=== PATIENT | female | born 1960 | race African-American/Black ===

== ENCOUNTER 2020-06-27 14:13 | Outpatient (REF) | payer OTHER, SELFPAY ==
--- NOTE | ~2020-06-27 | MR_ITS ---
EXAMINATION: MR CERVICAL SPINE WITHOUT CONTRAST CLINICAL INFORMATION: Mild cord compression. COMPARISON: CT cervical spine from 09/21/2018. TECHNIQUE: MRI of the cervical spine was obtained using routine sequences without contrast. FINDINGS: Straightening of the normal cervical lordosis. Otherwise, normal anatomic alignment. Advanced degenerative disc disease at C5-C6 and C6-C7. Moderate degenerative disc disease from C2-C5. Associated mixed Modic type discogenic endplate changes including mild Modic type I discogenic edema at C5-C6 and C6-C7. Mild marrow edema within the facets at C4-C5 suggestive of degenerative stress reaction. No additional suspicious marrow edema. The vertebral body heights are largely maintained. There is mild increased T2 signal within the central cord at C3-C4 suggestive of myelomalacia. No additional spinal cord signal abnormalities. Limited evaluation of the soft tissues of the neck without demonstrated abnormalities. The flow voids of the major cervical vessels are maintained. Normal appearance of the cervicomedullary junction and visualized posterior fossa. SPINAL LEVELS: C2-C3: Moderate disc-osteophyte complex. There is moderate right and mild left uncovertebral joint arthropathy. There is mild to moderate bilateral facet joint arthropathy. There is mild right and no left neural foraminal stenosis. There is no spinal canal stenosis. C3-C4: Prominent disc-osteophyte complex with superimposed central disc herniation. There is severe right and moderate left uncovertebral joint arthropathy. There is moderate bilateral facet joint arthropathy. There is severe right and moderate left neural foraminal stenosis. There is moderate to severe spinal canal stenosis. C4-C5: Moderate disc-osteophyte complex. There is moderate bilateral uncovertebral joint arthropathy. There is moderate bilateral facet joint arthropathy. There is moderate left and mild right neural foraminal stenosis. There is flattening of the ventral cord with mild spinal canal stenosis. C5-C6: Moderate disc-osteophyte complex. There is severe right and moderate left uncovertebral joint arthropathy. There is moderate bilateral facet joint arthropathy. There is severe right and moderate left neural foraminal stenosis. There is flattening of the ventral cord with mild to moderate spinal canal stenosis. C6-C7: Moderate disc-osteophyte complex. There is moderate bilateral uncovertebral joint arthropathy. There is moderate bilateral facet joint arthropathy. There is moderate to severe left and moderate right neural foraminal stenosis. There is mild spinal canal stenosis. C7-T1: Mild disc-osteophyte complex. There is no uncovertebral joint arthropathy. There is mild to moderate bilateral facet joint arthropathy. There is mild bilateral neural foraminal stenosis. There is no spinal canal stenosis. MR/MR cervical spine wo con IMPRESSION: Moderate to advanced multilevel degenerative spondyloarthropathy of the cervical spine as described in detail above. Most notably, there is moderate to severe spinal canal stenosis at C3-C4. Mild to moderate spinal canal stenoses from C4-C7. Moderate to severe neural foraminal stenoses from C3-C7. There is increased T2 signal within the spinal cord at the level of C3-C4 consistent with myelomalacia.
[2020-06-27 16:27] LABS: Alanine Aminotransferase 8 U/L (0-31); Albumin Level 4.4 g/dL (3.5-5.0); Alkaline Phosphatase 55 U/L (39-117); Anion Gap 15 (12-20); Aspartate Amino Transferase 18 U/L (5-31); Bilirubin Direct < 0.2 mg/dL (0.0-0.5); Bilirubin Total 0.5 mg/dL (0.0-1.0); Blood Urea Nitrogen 9 mg/dL (9-16); Carbon Dioxide 22 mmol/L (22-29); Chloride 106 mmol/L (96-108); Estimated Glomerular Filt Rate > 60; Glucose Random 82 mg/dL (60-115); Potassium 4.1 mmol/L (3.3-5.1); Sodium 139 mmol/L (135-145); Total Protein 7.3 g/dL (6.5-8.0)
[2020-06-27 16:53] LABS: Folate 9.6 ng/mL (> or = 4.0); Vitamin B12 319 pg/mL (200-900)
[2020-06-27 17:11] LABS: Erythrocyte Sedimentation Rate 14 MM/HR (0-20)
[2020-06-28 05:52] LABS: LDL Cholesterol Direct 165 mg/dL (<100)
[2020-06-28 09:26] LABS: Lyme Abs Screen <0.90 index
[2020-06-30 13:21] LABS: Anti Nuclear Antibody Screen NEGATIVE (NEGATIVE)
[2020-07-03 14:56] LABS: Vitamin D 25-OH, D2 <4 ng/mL; Vitamin D 25-OH, D3 72 ng/mL; Vitamin D 25-OH, Total 72 ng/mL (30-100)
== END 2020-06-27 14:14 | disposition home or self-care (01) ==
LOC: HO.MRI 14:13
PROVIDERS: Internal Medicine; Visit Provider Psychiatry & Neurology Neurology
DX: G95.9 Disease of spinal cord, unspecified (principal); F33.9 Major depressive disorder, recurrent, unspecified; E55.9 Vitamin D deficiency, unspecified; I10 Essential (primary) hypertension
CPT/HCPCS: 36415; 72141; 80048; 80076; 82306; 82607; 82746; 83721; 85652; 86038; 86039; 86618

== ENCOUNTER 2020-07-14 18:12 | Emergency (ER) | payer OTHER, SELFPAY ==
--- NOTE | ~2020-07-14 | XR_ITS ---
EXAMINATION: XR CHEST CLINICAL INFORMATION: COVID positive COMPARISON: 10/21/2018 TECHNIQUE: Frontal view of the chest was obtained. FINDINGS: There is a 4 mm granuloma at the right lung base, unchanged. There is mild coarse interstitial prominence, new from the prior study which could reflect viral pneumonitis. No dense focal consolidation. No pleural effusion or pneumothorax. XR/XR chest 1V IMPRESSION: Subtle mild coarse interstitial prominence, new from the prior study. COVID viral pneumonitis can have this appearance.
[2020-07-14 19:01] VITALS: BP 172/90; PULSE 83; RESP 18; TEMP 37; O2SAT 100; BMI 26.1
[2020-07-14 19:53] LABS: COVID-19 Test Positive (Negative)
--- NOTE | 2020-07-14 20:33 | ED_ITS ---
HPI - General Adult General Chief complaint: General Medical Stated complaint: sob,cough Time Seen by Provider: 07/14/20 20:33 Source: patient Mode of arrival: ambulatory Limitations: no limitations History of Present Illness HPI narrative: Patient complaining of dry cough , slight shortness of breath body aches for last 3 days visited her daughter on Easter and her daughter was sick 2 weeks ago with COVID. On arrival patient was saturating 100% at room air Onset (ago): day(s) (3) Related Data Previous Rx's Medication Instructions Recorded cholecalciferol (vitamin D3) 125 125 mcg PO DAILY 90 Days #90 cap 04/24/20 mcg (5,000 unit) capsule irbesartan 75 mg tablet 75 mg PO DAILY 90 Days #90 tab 04/24/20 amlodipine 5 mg tablet 5 mg PO DAILY 90 Days #90 tab 05/17/20 fluoxetine 20 mg capsule 20 mg PO DAILY 90 Days #90 cap 05/17/20 Allergies Allergy/AdvReac Type Severity Reaction Status Date / Time No Known Allergies Allergy Verified 05/17/20 14:43 [No Known Allergies*] Review of Systems Review of Systems: Constitutional : No Weight loss, + Fever, No Chills ENT/Mouth : No sore throat, No Rhinorrhea Eyes: No Eye Pain, No Swelling Cardiovascular : No Chest Pain, no palpitations Respiratory : ++Cough, No Sputum, no shortness of breath Gastrointestinal : no Nausea, No Vomiting, No Diarrhea, No abdominal Pain, no black stools Genitourinary : No Dysuria, No Urinary Frequency Musculoskeletal : No joint pain, ++ Myalgias, No Joint Swelling Skin : No Skin Lesions, No rash Neuro : No Weakness, No Numbness, No Dizziness, No Headache Psych : No Anxiety/Panic, No Depression Heme/Lymph: No Bruising, No Lymphadenopathy Endocrine : No Polyuria, No Polydipsia All other systems reviewed and are negative [facility] Past Medical History Surgical History No pertinent past surgical history Social History Social History Alcohol intake: never Smoking Status: Never smoker Use of substances other than those prescribed or required for medical reasons: No Advance Directives: No Advance Directives Information Provided: Yes Physical Exam Vital Signs: Vital Signs: Last Vital Signs Temp 98.0 F 07/14/20 20:58 Pulse 83 07/14/20 20:58 Resp 16 07/14/20 20:58 BP 166/101 H 07/14/20 20:58 Pulse Ox 98 07/14/20 20:58 Body Mass Index 26.1 Appearance: Alert. Oriented X3. No acute distress. Eyes: Pupils equal, round and reactive to light. ENT: Pharynx normal. Neck: Normal inspection. Neck supple. CVS: Normal heart rate and rhythm. Pulses normal. Respiratory: No respiratory distress. Breath sounds normal. Abdomen: Soft and nontender. Bowel sounds are present, no mass palpable, no CVA tenderness Skin: Skin warm and dry. Normal skin color. Normal skin turgor. Extremities: No lower extremity edema. No calf tenderness Neuro: Oriented X 3. No motor deficit. No sensory deficit. Medical Decision Making MDM Narrative Medical decision making narrative: Patient COVID positive chest x-ray with mild infiltrate saturating 98-100% room air will discharge patient home on doxycycline and Decadron. Patient advised to follow-up with PCP or report to the ER if increased shortness of breath keep social distancing Lab Data Lab results reviewed: Yes I reviewed the patient's lab results. Labs: Lab Results 07/14/20 Range/Units 19:31 COVID-19 ([place]) Positive A (Negative) COVID-19 Clin Com See Note Discharge Plan Discharge Prescriptions: No Action cholecalciferol (vitamin D3) 125 mcg (5,000 unit) capsule 125 mcg PO DAILY 90 Days Qty: 90 RF: 0 irbesartan 75 mg tablet 75 mg PO DAILY 90 Days Qty: 90 RF: 0 amlodipine 5 mg tablet 5 mg PO DAILY 90 Days Qty: 90 RF: 0 fluoxetine 20 mg capsule 20 mg PO DAILY 90 Days Qty: 90 RF: 0
[2020-07-14 20:58] VITALS: BP 166/101; PULSE 83; RESP 16; TEMP 36.7; O2SAT 98
[2020-07-14] MEDS: dexAMETHasone 6 MG TABLET PO (20:59)
[2020-07-14] MEDS: Benzonatate 100 MG CAPSULE 200 MG PO (22:33)
== END 2020-07-14 22:38 | disposition home or self-care (01) ==
PROVIDERS: Emergency Provider Internal Medicine; PCP Internal Medicine
DX: U07.1 COVID-19 (principal); R05 Cough; M79.10 Myalgia, unspecified site; Z79.899 Other long term (current) drug therapy
CPT/HCPCS: 36415; 71045; 87635; 99284; J8540

== ENCOUNTER 2021-01-12 08:26 | Outpatient (REF) | payer OTHER, SELFPAY ==
--- NOTE | ~2021-01-12 | XR_ITS ---
EXAMINATION: XR LUMBOSACRAL SPINE CLINICAL INFORMATION: Low back pain. COMPARISON: None TECHNIQUE: Three views of the lumbosacral spine. FINDINGS: There are 5 vlu-mwt-xostcct lumbar vertebra. No acute fracture or spondylolisthesis identified. There is significant narrowing of the L5-S1 disc space with marginal spurring and sclerosis. There is sclerosis involving the L4-L5 and L5-S1 facet joints. Pedicles intact. Mild sclerosis about the sacroiliac joints seen bilaterally without evidence of fusion or widening. Calcified fibroid seen within the pelvis. XR/XR lumbar spine 2-3V IMPRESSION: Narrowing at the L5-S1 disc space with bilateral facet arthropathy L4 through S1.
[2021-01-12 12:13] LABS: Alanine Aminotransferase 17 U/L (0-31); Albumin Level 4.4 g/dL (3.5-5.0); Alkaline Phosphatase 62 U/L (39-117); Anion Gap 13 (12-20); Aspartate Amino Transferase 21 U/L (5-31); Bilirubin Total 0.5 mg/dL (0.0-1.0); Blood Urea Nitrogen 6 mg/dL (9-16); Calcium 9.5 mg/dL (8.4-10.2); Carbon Dioxide 24 mmol/L (22-29); Chloride 106 mmol/L (96-108); Cholesterol 226 mg/dL; Estimated Glomerular Filt Rate > 60; Glucose Fasting 111 mg/dL (60-99); HDL Cholesterol 74 mg/dL; LDL Cholesterol Calculated 136 mg/dl; Sodium 139 mmol/L (135-145); Total Protein 7.3 g/dL (6.5-8.0); Triglycerides 83 mg/dL
[2021-01-19 14:07] LABS: Vitamin D 25-OH, D2 <4 ng/mL; Vitamin D 25-OH, D3 86 ng/mL; Vitamin D 25-OH, Total 86 ng/mL (30-100)
== END 2021-01-12 08:27 | disposition home or self-care (01) ==
LOC: HO.HMGCX 08:26
PROVIDERS: PCP Internal Medicine; Visit Provider Internal Medicine
DX: E78.9 Disorder of lipoprotein metabolism, unspecified (principal); F10.20 Alcohol dependence, uncomplicated; F33.9 Major depressive disorder, recurrent, unspecified; I10 Essential (primary) hypertension; E55.9 Vitamin D deficiency, unspecified; M54.59 Other low back pain
CPT/HCPCS: 36415; 72100; 80053; 80061; 82306

== ENCOUNTER 2021-09-11 13:45 | Outpatient (REF) | payer OTHER, SELFPAY ==
[2021-09-11 16:11] LABS: MANUAL DIFF FLAG NO
[2021-09-11 16:22] LABS: Estimated Average Glucose 82 mg/dL; Hemoglobin A1c % 4.5 %
[2021-09-11 16:25] LABS: Alanine Aminotransferase 19 U/L (0-31); Albumin Level 4.4 g/dL (3.5-5.0); Alkaline Phosphatase 73 U/L (39-117); Anion Gap 17 (12-20); Aspartate Amino Transferase 26 U/L (5-31); Basophils Percent Auto 0.5 % (0-2); Bilirubin Total 0.5 mg/dL (0.0-1.0); Blood Urea Nitrogen 6 mg/dL (9-16); Calcium 9.3 mg/dL (8.4-10.2); Carbon Dioxide 21 mmol/L (22-29); Chloride 105 mmol/L (96-108); Eosinophils Absolute Auto 0.1 X10*3/uL (0.0-0.4); Eosinophils Percent Auto 1.2 % (0-4); Estimated Glomerular Filt Rate > 60; Glucose Random 99 mg/dL (60-115); Hematocrit 37.7 % (37.0-47.0); Hemoglobin 12.6 g/dl (12.0-16.0); Imm Gran Abs Auto 0.03 X10*3/uL (0.00-0.03); Imm Gran Pct Auto 0.3 % (0.0-0.4); Lymphocytes Absolute Auto 2.7 X10*3/uL (1.2-4.9); Lymphocytes Percent Auto 30.6 % (20-40); Mean Corpuscular HGB Conc 33.4 g/dl (31.0-35.0); Mean Corpuscular Hemoglobin 32.5 pg (27.0-33.0); Mean Corpuscular Volume 97.2 fL (80.0-98.0); Mean Platelet Volume 9.8 fL (9.4-12.3); Monocytes Absolute Auto 0.7 X10*3/uL (0.1-1.2); Monocytes Percent Auto 7.7 % (2-11); Neutrophils Absolute Auto 5.3 x10*3/uL (2.0-8.3); Neutrophils Percent Auto 59.7 % (45-73); Platelet Count 327 X10*3/uL (160-400); Potassium 3.9 mmol/L (3.3-5.1); Red Blood Count 3.88 X10*6/uL (4.20-5.50); Red Cell Distribution Width 11.8 % (11.0-16.0); Sodium 139 mmol/L (135-145); Total Protein 7.5 g/dL (6.5-8.0); White Blood Count 8.9 X10*3/uL (4.8-10.8)
[2021-09-11 16:52] LABS: Vitamin B12 289 pg/mL (200-900)
[2021-09-13 01:17] LABS: LDL Cholesterol Direct 116 mg/dL (<100)
== END 2021-09-11 13:46 | disposition home or self-care (01) ==
LOC: HO.HMGCLDS 13:45
PROVIDERS: PCP Internal Medicine; Visit Provider Internal Medicine
DX: E78.9 Disorder of lipoprotein metabolism, unspecified (principal); F33.42 Major depressive disorder, recurrent, in full remission; G95.9 Disease of spinal cord, unspecified; I10 Essential (primary) hypertension; M48.02 Spinal stenosis, cervical region; R73.01 Impaired fasting glucose; Z72.0 Tobacco use
CPT/HCPCS: 36415; 80053; 82607; 83036; 83721; 85025

== ENCOUNTER → 2021-10-23 12:15 | Outpatient (BNVA) | payer OTHER, SELFPAY | PROVIDERS: PCP Internal Medicine; Visit Provider Orthopaedic Surgery | DX: M67.431 Ganglion, right wrist (principal); G56.03 Carpal tunnel syndrome, bilateral upper limbs | CPT/HCPCS: 99202 ==

== ENCOUNTER 2021-11-01 12:58 | Outpatient (REF) | payer OTHER, SELFPAY ==
--- NOTE | ~2021-11-01 | MR_ITS ---
EXAMINATION: MR WRIST WITHOUT CONTRAST, RIGHT CLINICAL INFORMATION: Pain in right wrist. COMPARISON: None TECHNIQUE: MRI of the wrist was performed using routine sequences on a high-field scanner. Repeat series attempted because of prominent image degrading motion artifact. FINDINGS: Exam is significantly limited because of image degrading motion artifact. Patient apparently could not hold still because of pain. Subcutaneous Soft Tissues: Limited evaluation. No definite abnormality. MUSCLES/TENDONS: Flexor Carpi Radialis: There is prominent localized increased fluid in the tendon sheath beginning 1.7 cm proximal to the distal radioulnar joint and extending to its distal insertion. The tendon appears otherwise intact. There is lobulated fluid that extends over a distance of approximately 4 cm craniocaudal and measures up to 1.2 cm transverse and 0.9 cm AP. Remaining muscles and tendons unremarkable. [place] Fibrocartilage Complex: Limited evaluation because of artifact. No definite tear. Intraosseous Ligaments: Limited because of significant artifact. No definite tear. Bone/Articular Cartilage: Limited evaluation because of significant artifact. No definite abnormality. Neurovascular Structures: Limited because of artifact. No definite abnormality. MR/MR wrist RT wo con IMPRESSION: 1. Limited examination because of image degrading motion artifact. 2. Lobulated fluid within the tendon sheath of the flexor carpi radialis. This most likely reflects a tenosynovitis. Ganglion cyst within the tendon sheath is thought to be unlikely. The tendon itself appears intact.
== END 2021-11-01 12:59 | disposition home or self-care (01) ==
LOC: HO.MRI 12:58
PROVIDERS: Visit Provider Physician Assistant
DX: M67.431 Ganglion, right wrist (principal)
CPT/HCPCS: 73221

== ENCOUNTER 2022-02-14 11:52 | Outpatient (REF) | payer OTHER, SELFPAY ==
--- NOTE | 2022-02-14 08:30 | EMG_ITS ---
Bilateral median and ulnar motor and sensory studies were performed. Bilateral radial sensory studies were performed and paraspinal muscles were tested with a needle. IMPRESSION: This study revealed mild left ulnar neuropathy across cubital tunnel. Otherwise, there was no significant abnormality. MD NAVIN Graff/JUVENAL / [id number]
== END 2022-02-14 11:53 | disposition home or self-care (01) ==
LOC: HO.NEURO 11:52
PROVIDERS: Visit Provider Physician Assistant
DX: R20.0 Anesthesia of skin (principal); R20.2 Paresthesia of skin
CPT/HCPCS: 95886; 95911

== ENCOUNTER → 2022-02-26 10:14 | Outpatient (BNVA) | payer OTHER, SELFPAY | PROVIDERS: PCP Internal Medicine; Visit Provider Orthopaedic Surgery | DX: G56.03 Carpal tunnel syndrome, bilateral upper limbs (principal); G56.22 Lesion of ulnar nerve, left upper limb; M65.9 Synovitis and tenosynovitis, unspecified | CPT/HCPCS: 99202 ==

== ENCOUNTER 2022-03-13 14:16 | Outpatient (REF) | payer OTHER, SELFPAY ==
[2022-03-13 16:51] LABS: Estimated Average Glucose 82 mg/dL; Hemoglobin A1c % 4.5 %
[2022-03-13 16:53] LABS: Alanine Aminotransferase 15 U/L (0-31); Albumin Level 4.3 g/dL (3.5-5.0); Alkaline Phosphatase 65 U/L (39-117); Anion Gap 14 (12-20); Aspartate Amino Transferase 19 U/L (5-31); Bilirubin Total 0.3 mg/dL (0.0-1.0); Blood Urea Nitrogen 5 mg/dL (9-16); Calcium 9.4 mg/dL (8.4-10.2); Carbon Dioxide 25 mmol/L (22-29); Chloride 105 mmol/L (96-108); Estimated Glomerular Filt Rate > 60; Glucose Random 111 mg/dL (60-115); Potassium 3.5 mmol/L (3.3-5.1); Sodium 140 mmol/L (135-145)
[2022-03-13 17:31] LABS: Vitamin B12 923 pg/mL (200-900)
== END 2022-03-13 14:17 | disposition home or self-care (01) ==
LOC: HO.HMGCLDS 14:16
PROVIDERS: PCP Internal Medicine; Visit Provider Internal Medicine
DX: E53.8 Deficiency of other specified B group vitamins (principal); E55.9 Vitamin D deficiency, unspecified; E78.9 Disorder of lipoprotein metabolism, unspecified; F10.20 Alcohol dependence, uncomplicated; F33.9 Major depressive disorder, recurrent, unspecified; I10 Essential (primary) hypertension; R73.01 Impaired fasting glucose; Z72.0 Tobacco use
CPT/HCPCS: 36415; 80053; 82607; 83036

== ENCOUNTER 2022-03-21 13:51 | Day surgery (SDC) | payer OTHER, SELFPAY ==
--- NOTE | 2022-03-21 13:00 | W.PM.OPN ---
Operative Note Operative Note Date of Service: 03/21/22 Narrative: Preop diagnosis: 1. left Carpal tunnel syndrome Postop diagnosis: same Procedure: 1. left Carpal tunnel release Surgeon: Sanjuanita Brizuela MD Anesthesia: local block using 1% lidocaine with epinephrine Findings: Thickened transverse carpal ligament. EBL: Less than 5 mL Specimens: None Complications: None Disposition: Brought to recovery room in stable condition Plan: Follow-up for 10-14 days for wound check and suture removal Indications: The patient is 61 years old, with left carpal tunnel syndrome that has been unresponsive to nonoperative management. The risks and benefits of operative treatment including but not limited to risk of damage to blood vessels, nerves, tendons, infection, persistent pain, persistent symptoms, or possible need for additional surgery were discussed with the patient and the patient wishes to proceed with surgery. Procedure: Once consent was obtained a local block was performed using a combination of 1% lidocaine with epinephrine. The patient was then brought back to the operating suite and placed on the operative table in supine position. A tourniquet was applied to the proximal aspect of the left upper extremity and the limb was prepped and draped in a standard surgical fashion. Once assured that we had a good block, a 2.0 cm longitudinal incision was made centered over the carpal tunnel. The incision was made through the skin to the subcutaneous tissues using a #15 blade. Dissection was made down to the level of the transverse carpal ligament with care being taken to protect the palmar cutaneous nerve. Once the transverse carpal ligament was clearly visualized, a longitudinal incision was made in the transverse carpal ligament 1st using a #15 blade, then using tenotomy scissors under direct visualization. Care was taken to look for and protect the motor branch of the median nerve when seen in this area. Once satisfied with our carpal tunnel release the wound was copiously irrigated with normal saline and hemostasis was obtained with a brief period of local pressure. The skin edges were reapproximated with some 5.0 nylon suture material and a sterile dressing was applied. The patient appears to have tolerated the procedure well and with no complications. All digits were well vascularized at the conclusion of the case.
[2022-03-21 13:53] VITALS: BMI 28.3
--- NOTE | 2022-03-21 14:15 | MHC.SHP ---
Pre-Procedural Eval Section A Date of Service: 03/21/22 The patient is an INPATIENT: No Changes since office visit: No Cold of Flu in the past 2 weeks, No New Medical Problems, No Changes in Medication and No Patient answered all questions The History & Physical has been completed within 30 days and I have reviewed it.: Yes Section B Chief Complaint: Carpal tunnel syndrome, left upper limb Allergies: Allergies Allergy/AdvReac Type Severity Reaction Status Date / Time No Known Allergies Allergy Verified 03/13/22 14:03 [No Known Allergies*] Plan I have reviewed the history and physical and performed a pertinent physical examination on my patient. No changes have occurred unless specified. Time Spent With Patient Time: Total time managing care of this patient today ____ minutes.
[2022-03-21 14:47] VITALS: BP 145/78; PULSE 85; RESP 16; TEMP 37.1; O2SAT 98
== END 2022-03-21 14:54 | disposition home or self-care (01) ==
PROVIDERS: Visit Provider Orthopaedic Surgery
PROC: (CPT 64721; principal; 2022-03-21 14:40)
DX: G56.02 Carpal tunnel syndrome, left upper limb (principal); I10 Essential (primary) hypertension; E78.00 Pure hypercholesterolemia, unspecified; F17.210 Nicotine dependence, cigarettes, uncomplicated
CPT/HCPCS: 64721; J0171

== ENCOUNTER → 2022-04-03 13:28 | Outpatient (BNVA) | payer OTHER, SELFPAY | PROVIDERS: PCP Internal Medicine; Visit Provider Orthopaedic Surgery | DX: Z13.89 Encounter for screening for other disorder (principal) ==

== ENCOUNTER → 2022-05-08 12:39 | Outpatient (BNVA) | payer OTHER, SELFPAY | PROVIDERS: PCP Internal Medicine; Visit Provider Physician Assistant | DX: M67.431 Ganglion, right wrist (principal); M65.9 Synovitis and tenosynovitis, unspecified; G56.01 Carpal tunnel syndrome, right upper limb | CPT/HCPCS: 99212 ==

== ENCOUNTER 2022-07-15 13:00 | Outpatient (RCR) | payer OTHER, SELFPAY ==
--- NOTE | 2022-06-10 15:05 | MHC.OT.EP ---
[address] [phone] Occupational Therapy Plan of Care Patient Name: Magdalene Saenz Date of Evaluation: 06/10/22 Diagnosis: R CARPAL TUNNEL SYNDROME Pain Location: B/L HANDS 8/10 NUMBNESS/TINGLING Pain Score: 8 Pain Scale Used: Numeric (0 - 10) Aggravating Factors: LAYING DOWN/ SLEEPING Alleviating Factors: NIGHT SPLINTS, IBUPROFEN 800 MG, NOT UTILIZING ICE/ HEAT Assessment: MS SAENZ IS 11.5 WEEKS POST OP FROM L [facility]. SHE REPORTS SYMPTOMS OF CARPAL TUNNEL NUMBNESS AND TINGLING ON R, PENDING SURGERY ON RIGHT YET DATE NOT SET. NUMBNESS IS GREATEST AT NIGHT DESPITE USE OF PRE-CHARLIE NIGHT SPLINTS. SHE STATES IMPAIRMENTS IN B/L UEs AND LIMITATIONS IN DAILY ACTIVITIES. A 52% LIMITATION IS REPORTED PER THE QUICK DASH ASSESSMENT. ONGOING SKILLED OT IS WARRANTED TO RESTORE FUNCTION OF B/L HANDS AND IMPROVE QOL. Frequency and Duration: The patient will be seen 2X/WEEK FOR 6 WEEKS Short Term Goals: IND HEP IND JT PROTECTION AND ACTIVITY MODIFICATION IND USE OF HEAT/ICE IND DESENSITIZATION TECHNIQUES IND EDEMA MANAGEMENT STRATEGIES REPORT <6/10 PAIN DURING WRITING TASKS, ADLs Assisted Goals: INCREASE L GRASP >25 POUNDS REPORT <4/10 B/L PAIN DURING IADLs QUICK DASH <35% IND SELF MANAGEMENT ON RIGHT WITH NIGHT SPLINTING, NERVE GLIDES, ETC Treatment Plan: Therapeutic Exercise Therapeutic Activity Home Exercise Program Splinting Neuro Re-ed Patient Education Desensitization/Sensory Re-ed Edema Control ADL Training Ultrasound NMES Iontophoresis Paraffin Fluidotherapy MHP Cold Packs Joint Mobilization Soft Tissue Mobilization Kinesiotaping Other (see comments) Electronically Signed By: RENÉE LERNER OTR/L Please Sign and return to therapist. Thank you once again for your referral.
--- NOTE | 2022-07-15 13:48 | MHC.OT.DC ---
[address] [phone] F: [phone] Occupational Therapy Discharge Note Patient Name: Magdalene Aldana Provider: Andres Mckee Diagnosis: R CARPAL TUNNEL SYNDROME Date of Surgery: 03/21/22 Date of Evaluation: 06/10/22 Date of Discharge: 07/15/22 Treatments to Date: 6 Cancellations to Date: 5 No Shows to Date: 0 Discharge Status: Achieved Goals Improved Function Discharge Summary: MS ALDANA HAS PROGRESSED WELL WITH HER OT RX SESSIONS. SHE REPORTS LESS PAIN AT REST AND WITH ADLs. SHE IS WEARING HER ORTHOSIS AND HAS IMPROVED SLEEP. HER QUICK DASH SCORE HAS IMPROVED AND IS STATING A 25% LIMITATION NOW (PREVIOUSLY 52%). Pt HAS MET [facility] AND READY FOR TRANSITION TO A HOME BASED PROGRAM. Pt PLANS TO CALL AND SCHEDULE R CTR WITH DR HOPSON WHEN READY. NO FURTHER OT WARRANTED AT THIS TIME. Electronically Signed By: RENÉE LERNER OTR/L Reviewed/agree with student documentation: N/A Therapist: Please Sign and return to therapist, thank you for your referral.
== END 2022-07-15 13:50 | disposition home or self-care (01) ==
LOC: HO.OT 13:00
PROVIDERS: PCP Internal Medicine; Visit Provider Physician Assistant
DX: G56.01 Carpal tunnel syndrome, right upper limb (principal); M67.431 Ganglion, right wrist
CPT/HCPCS: 29125; 97035; 97110; 97140; 97166; 97760

== ENCOUNTER → 2022-11-06 11:15 | Outpatient (BNVA) | payer OTHER, SELFPAY | PROVIDERS: PCP Internal Medicine; Visit Provider Orthopaedic Surgery ==

== ENCOUNTER 2022-11-08 08:44 | Outpatient (AMB) | payer OTHER, SELFPAY ==
--- NOTE | 2022-11-08 08:45 | A.OFFPC_ITS ---
Vital Signs 11/08/22 08:50 Height 5 ft 5 in Weight 170 lb BMI 28.3 BP 112/74 Blood Pressure Location Rt brachial Position Sitting Pulse 102 H Pulse Source Pulse Oximeter Pulse Oximetry (%) 97 Oxygen Delivery Method Room Air Intake Visit Reasons: 3 mouth follow up HTN Allergies No Known Allergies [No Known Allergies*] Allergy (Verified 11/06/22 11:25) Medication List - Last Reconciled 11/08/22 by Nancy Houston MD amlodipine 5 mg PO DAILY 90 days atorvastatin 10 mg PO DAILY 90 days celecoxib 200 mg PO BID diclofenac sodium 3% 1 appl topical BID 30 days fluoxetine 20 mg PO DAILY 90 days ibuprofen 800 mg PO TID PRN 30 days irbesartan 75 mg PO DAILY 90 days meloxicam 7.5 mg PO DAILY PRN 90 days Tobacco use date assessed: 11/08/22 Dental Screening Dental Screen Date: 11/08/22 Did you have a dental visit in the last 12 months?: Yes Did you have a dental problem in the last 6 months where you did not have access to dental care?: No Was dental information given to patient?: No HPI 3 mouth follow up HTN HPI Details Patient is 61-year-old female came in today for her follow-up appointment Patient continued to smoke and continue to drink and have no intention to stop, we had another discussion today She says that she mainly drinks beer about 2 every day Labs are still not done, she will do them today She is taking all her medications.? Hypertension:? Blood pressure is stable patient is on amlodipine 5 mg and irbesartan 75 mg.? No side effects.? Depression is stable with fluoxetine 20 mg She is also on atorvastatin 10 mg daily for lipid control.? Severe osteoarthritis knees:? Taking meloxicam 7.5 mg as needed only with food patient is aware of side effects Follow-up 3 months [facility] Medical History High blood cholesterol High blood pressure Surgical History No pertinent past surgical history Family History Other Mental health disorder Social History Housing: Other Alcohol intake: never Patient Tobacco Use Status: Current everyday Tobacco user Cigarettes Per Day: 3 Years Smoked: 40 years e-Cigarette/Vaping Use: Never Used service: No Current occupational status: disabled Cognitive needs: No Hearing needs: No Vision needs: No Questionnaire PHQ-9 Over the last 2 weeks, how often have you been bothered by any of the following problems? 1. Little interest or pleasure in doing things: not at all 2. Feeling down, depressed, or hopeless: not at all 3. Trouble falling or staying asleep, or sleeping too much: more than half the days 4. Feeling tired or having little energy: several days 5. Poor appetite or overeating: not at all 6. Feeling bad about yourself - or that you are a failure or have let yourself or your family down: not at all 7. Trouble concentrating on things, such as reading the newspaper or watching television: not at all 8. Moving or speaking so slowly that other people could have noticed. Or the opposite - being so fidgety or restless that you have been moving around a lot more than usual: not at all 9. Thoughts that you would be better off or of hurting yourself in some way: not at all Total score: 3 Depression Screening Interpretation: Negative [id number] - PHQ-9 Billing: Yes Source: Developed by Drs. Damien Carias, Suyapa Gee, Reggie Jaeger and colleagues, with an educational shimon from [employer]. Thrive Questionnaire Date Thrive assessed: 11/08/22 I am a: Patient What is your living situation today?: I have a steady place to live Within the past 12 months, did the food you bought not last and you didn't have the money to get more?: Never true Within the past 12 months, did you worry whether your food would run out before you got money to buy more?: Never true Do you have trouble paying for medicines?: No Do you have trouble getting transportation to medical appointments?: No Do you have trouble paying your heating and electricity bill?: No Do you have trouble taking care of your child, family member or friend?: No Do you have trouble with day-to-day activities such as bathing, preparing meals, shopping, managing finances, etc.?: No Are you currently unemployed and looking for a job?: No Are you interested in more education?: No AUDIT C Alcohol Use Questionnaire (AUDIT-C) 1. How often do you have a drink containing alcohol?: 4 or more times a week 2. How many drinks containing alcohol do you have on a typical day when you are drinking?: 3 or 4 3. How often do you have six or more drinks on one occasion?: Never Total Score: 5 Score Reviewed/Action Taken: Yes RAAD-7 AMB Questionnaire RAAD-7 Date RAAD - 7 assessed: 11/08/22 Feeling nervous, anxious, or on edge: 0 = Not at all Not being able to stop or control worryin = Not at all Worrying too much about different things: 0 = Not at all Trouble relaxin = Not at all Being so restless that it is hard to sit still: 0 = Not at all Becoming easily annoyed or irritable: 0 = Not at all Feeling afraid as if something awful might happen: 1 = Several days Total RAAD-7 score (0-4 normal; 5-9 mild; 10-14 moderate; 15-21 severe): 1 Source: Developed by Drs. Damien Carias, Suyapa Gee, Reggie Jaeger and colleagues, with an educational shimon from [employer]. RAAD-7 Assessment Billing RAAD-7 Assessment Tool: RAAD-7 Assessment 30651 Review of Systems Const Denies chills and Denies fever(s) ENT Denies epistaxis and Denies nasal discharge Card Denies chest pain Resp Denies chest congestion, Denies cough and Denies hemoptysis GI Denies diarrhea and Denies nausea Skin/Breast Denies rash Neuro Reports no additional complaints Psych Reports no additional complaints Endo Reports no additional complaints Physical exam (Primary Care) Vital Signs: Last Vital Signs Pulse 102 H 11/08/22 08:50 BP 112/74 11/08/22 08:50 Pulse Ox 97 11/08/22 08:50 Oxygen Delivery Method Room Air 11/08/22 08:50 BMI result Body Mass Index 28.3 Tobacco/Smoking Status: Tobacco use Status Tobacco use date assessed 11/08/22 11/08/22 08:51 Patient Tobacco Use Status Current everyday Tobacco 11/08/22 08:47 e-Cigarette/Vaping Use Never Used 11/08/22 08:47 PHQ-9: PHQ-9 Score PHQ-9: Total score 3 11/08/22 09:05 Depression Screening Interpretation: Negative Thrive Assessment: Date of Thrive Assessment Date Thrive assessed 11/08/22 11/08/22 09:05 Const General: cooperative, comfortable and no acute distress Orientation/consciousness: patient oriented x3 HENMT Head: Yes normocephalic Eyes General: appearance normal, both eyes and all related structures Neck Neck: Yes supple Resp Effort & Inspection: normal respiratory effort, no cough and no stridor Cardio Rhythm: regular rhythm Heart sounds: S1 normal heart sound present and S2 normal heart sound present Skin General skin exam: turgor normal Neuro General: patient oriented x3, tone normal and moves all extremities Extrem Right lower extremity: no edema Left lower extremity: no edema Assessment and Plan Assessment & Plan (1) Hypertension, essential: Code(s): I10 - Essential (primary) hypertension (2) Depression, major, recurrent: Code(s): F33.9 - Major depressive disorder, recurrent, unspecified Qualifiers: Active/Remission status: in full remission Qualified Code(s): F33.42 - Major depressive disorder, recurrent, in full remission (3) Lipid disorder: Code(s): E78.9 - Disorder of lipoprotein metabolism, unspecified (4) Tobacco use: Code(s): Z72.0 - Tobacco use (5) Alcoholism: Comment: CONSEQUENCES OF DRINKING PROBLEMS There are a number of serious consequences of drinking alcohol excessively -------Excessive alcohol consumption is a leading preventable cause of in the [place]. --------Drinking alcohol increases the risk of traffic accidents, suicide, drowning, and other serious injuries. -------Alcohol use continues to be the leading cause of injuries treated in trauma centers and emergency departments . --------Alcohol-related liver disease may lead to end-stage liver disease (cirrhosis) and . --------Alcohol increases the risk of certain cancers of the mouth, esophagus, throat, liver, and breast. Code(s): F10.20 - Alcohol dependence, uncomplicated (6) Vitamin D deficiency: Code(s): E55.9 - Vitamin D deficiency, unspecified (7) B12 deficiency: Code(s): E53.8 - Deficiency of other specified B group vitamins (8) Elevated fasting blood sugar: Code(s): R73.01 - Impaired fasting glucose (9) Osteoarthritis of knees, bilateral: Code(s): M17.0 - Bilateral primary osteoarthritis of knee Plan Patient is 61-year-old female came in today for her follow-up appointment Patient continued to smoke and continue to drink and have no intention to stop, we had another discussion today She says that she mainly drinks beer about 2 every day Labs are still not done, she will do them today She is taking all her medications.? Hypertension:? Blood pressure is stable patient is on amlodipine 5 mg and irbesartan 75 mg.? No side effects.? Depression is stable with fluoxetine 20 mg She is also on atorvastatin 10 mg daily for lipid control.? Severe osteoarthritis knees:? Taking meloxicam 7.5 mg as needed only with food patient is aware of side effects Follow-up 3 months Coding Level of Care Code Est Pt Level 4 (89318) Diagnoses Hypertension, essential I10 Depression, major, recurrent F33.42 Active/Remission status: in full remission Lipid disorder E78.9 Tobacco use Z72.0 Alcoholism F10.20 Vitamin D deficiency E55.9 B12 deficiency E53.8 Elevated fasting blood sugar R73.01 Osteoarthritis of knees, bilateral M17.0 Additional Codes RAAD-7 Assessment Billing - RAAD-7 Assessment Tool: RAAD-7 Assessment 96298 ([id number])
[2022-11-08 08:50] VITALS: BP 112/74; PULSE 102; O2SAT 97; BMI 28.3
== END 2022-11-08 09:28 | disposition home or self-care (01) ==
PROVIDERS: Visit Provider Internal Medicine
DX: I10 Essential (primary) hypertension (principal); F33.42 Major depressive disorder, recurrent, in full remission; F10.20 Alcohol dependence, uncomplicated; E55.9 Vitamin D deficiency, unspecified; E78.9 Disorder of lipoprotein metabolism, unspecified; Z72.0 Tobacco use; E53.8 Deficiency of other specified B group vitamins; R73.01 Impaired fasting glucose; M17.0 Bilateral primary osteoarthritis of knee
CPT/HCPCS: 99214

== ENCOUNTER 2022-11-08 09:12 | Outpatient (REF) | payer OTHER, SELFPAY ==
[2022-11-08 11:44] LABS: Hematocrit 42.2 % (37.0-47.0); Hemoglobin 14.3 g/dl (12.0-16.0)
[2022-11-08 13:38] LABS: Estimated Average Glucose 82 mg/dL; Hemoglobin A1c % 4.5 %
[2022-11-08 14:50] LABS: Alanine Aminotransferase 21 U/L (0-31); Albumin Level 4.6 g/dL (3.5-5.0); Alkaline Phosphatase 75 U/L (39-117); Anion Gap 20 (12-20); Aspartate Amino Transferase 30 U/L (5-31); Bilirubin Total 0.9 mg/dL (0.0-1.0); Blood Urea Nitrogen 8 mg/dL (9-16); Carbon Dioxide 21 mmol/L (22-29); Chloride 103 mmol/L (96-108); Estimated Glomerular Filt Rate > 60; Glucose Random 92 mg/dL (60-115); Potassium 3.8 mmol/L (3.3-5.1); Sodium 140 mmol/L (135-145); Total Protein 8.2 g/dL (6.5-8.0)
[2022-11-08 15:39] LABS: Vitamin B12 625 pg/mL (200-900)
[2022-11-14 12:58] LABS: Vitamin D 25-OH, D2 <4 ng/mL; Vitamin D 25-OH, D3 44 ng/mL; Vitamin D 25-OH, Total 44 ng/mL (30-100)
== END 2022-11-08 09:13 | disposition home or self-care (01) ==
LOC: HO.HMGCLDS 09:12
PROVIDERS: PCP Internal Medicine; Visit Provider Internal Medicine
DX: E53.8 Deficiency of other specified B group vitamins (principal); E55.9 Vitamin D deficiency, unspecified; E78.9 Disorder of lipoprotein metabolism, unspecified; F10.20 Alcohol dependence, uncomplicated; F33.9 Major depressive disorder, recurrent, unspecified; I10 Essential (primary) hypertension; R73.01 Impaired fasting glucose; Z72.0 Tobacco use
CPT/HCPCS: 36415; 80053; 82306; 82607; 83036; 85014; 85018

== ENCOUNTER 2023-02-04 08:53 | Outpatient (AMB) | payer OTHER, SELFPAY ==
--- NOTE | 2023-02-04 09:21 | MHC.OFFVIS ---
Intake Vital Signs 02/04/23 09:32 Height 5 ft 5 in Weight 170 lb BMI 28.3 Intake Visit Reasons: Ov- right hand lump Intake Note: Magdalene 62 yr old female who is left hand dominant, presents today for her s/p LT CTR 03/21/[address] Brizuela. State she cont's to have numbness however her weakness has improve. she is also having burning sensation by her CMC joint of her left. She has noticed she has small nodules in her left palm. States she has a bump on her right volar aspect of wrist that has increase in size as well. Allergies No Known Allergies [No Known Allergies*] Allergy (Verified 02/04/23 09:31) HPI Ov- right hand lump HPI Details Magdalene is a 62 year old right hand dominant woman who presents with several complaints today. She is S/P left Carpal tunnel release, DOS: 03/21/22. She has right hand numbness consistent with carpal tunnel syndrome, a mass over the right FCR tendon, and known left cubital tunnel syndrome based on her EMG, which was not symptomatic. Her chief complaint today is of a new lump in her left palm, in line with her ring finger. She finds this painful when grasping objects. She says her left hand numbness has slightly improved but continues to be numb, though she does have some improvement in her sensation at night and her weakness has somewhat improved Regarding her right hand, she still has dense numbness in the median nerve distribution, worse at night. She says she also occasionally has numbness in her feet. She denies any Diabetes but says she has a hx of an ACDF in the past. She also complains of a burning sensation at the base of her left thumb PFSH Medical History High blood cholesterol High blood pressure Surgical History No pertinent past surgical history Family History Other Mental health disorder Social History (Reviewed 02/04/23 @ 09:32 by Juana Colby [facility]) Housing: Other Alcohol intake: never Patient Tobacco Use Status: Current everyday Tobacco user Cigarettes Per Day: 3 Years Smoked: 40 years e-Cigarette/Vaping Use: Never Used service: No Current occupational status: disabled Cognitive needs: No Hearing needs: No Vision needs: No Review of Systems Const All systems reviewed & are unremarkable except as noted in HPI and below Physical Exam Vital Signs: BMI result Body Mass Index 28.3 Const General: no acute distress and alert Orientation/consciousness: patient oriented x3 Neuro General: patient oriented x3 Extrem Other: Evaluation of Bilateral Upper Extremity: The patient is alert, oriented, and in no acute distress Neuro: Dense numbness in the median nerve distribution of her right hand. Still with persistent numbness in her left hand No thenar or intrinsic wasting Vascular: Cap refill brisk ROM: Can bring fingers closed to a fist and back out to full extension. In the left hand she has a palpable Dupuytren's nodule in the mid palm in line with the left ring finger. There is no evidence of contracture at this time. She complains of tenderness directly over the scaphoid tubercle and that is where she is most tender. No swelling and no evidence of ganglion cyst. No tenderness about the basal joint of the thumb, and she has good active motion at the basal joint of the thumb. Not particularly tender over the left FCR tendon Regarding the right wrist: She does now have a right volar wrist ganglion. The ganglion is situated approximately 2.5 cm proximal to the distal wrist crease and over the FCR tendon. She also has fullness in the FCR tendon. This ganglion could be coming from the wrist joint, but could also be coming from the FCR tendon. Radial artery palpated just radial to the cyst, but not right over the cyst. EMG Nerve Conduction study: Bilateral study performed. IMPRESSION:? This study revealed mild left ulnar neuropathy across cubital tunnel. Otherwise, there was no significant abnormality. Reta Houston MD 02/14/2022 MRI: MR/MR wrist RT wo con IMPRESSION: 1. Limited examination because of image degrading motion artifact. ? 2. Lobulated fluid within the tendon sheath of the flexor carpi radialis. This most likely reflects a tenosynovitis. Ganglion cyst within the tendon sheath is thought to be unlikely. The tendon itself appears intact. ? Dictated By: Jake Gonazlez MD 11/05/21 Psych Appearance: grossly normal Affect: normal affect Attitude: cooperative Assessment & Plan Assessment & Plan (1) Carpal tunnel syndrome on both sides: Code(s): G56.03 - Carpal tunnel syndrome, bilateral upper limbs (2) Cubital tunnel syndrome on left: Code(s): G56.22 - Lesion of ulnar nerve, left upper limb (3) Dupuytren's disease of palm of left hand: Code(s): M72.0 - Palmar fascial fibromatosis [Dupuytren] (4) Ganglion cyst of volar aspect of wrist: Code(s): M67.439 - Ganglion, unspecified wrist Plan Assessment & Plan: 1. Left Dupuytrens nodule In line with the ring finger, no contracture I educated her about this condition If she develops any contracture of her finger, she can follow up to discuss treatment 2. Left Carpal tunnel syndrome, S/P release DOS: 03/21/22 Pre-operatively with dense numbness in the median nerve distribution and radial half of ring finger Still with dense numbness, but improvement in her nighttime symptoms EMG in 2021 negative for left Carpal Tunnel 3. Right hand numbness Dense numbness in the median nerve distribution She has a hx of ACDF in the past, and reports having occasional numbness in her bilateral feet. I ordered a new NCS to assess her bilateral hand numbness, as well as episodes of numbness in her feet. 4. Right volar wrist ganglion With a multi-lobular mass directly over the FCR tendon May be related to her right chronic FCR tenosynovitis I discussed this with her and offered aspiration today She declined any treatment at this time 5. Left Cubital Tunnel syndrome Based on EMG Not particularly symptomatic at this time This will be managed conservatively for now. Scribed for Sanjuanita Brizuela MD by Marcelo Donohue, medical insurance claims processor, on 02/04/23 at 9:55 AM, EST. Orders: Orders NE nerve conduction velocity Today R20.0 - Anesthesia of skin, R20.2 - Paresthesia of skin Coding Level of Care Code Est Pt Level 4 (83700) Diagnoses Carpal tunnel syndrome on both sides G56.03 Cubital tunnel syndrome on left G56.22 Dupuytren's disease of palm of left hand M72.0 Ganglion cyst of volar aspect of wrist M67.439
[2023-02-04 09:32] VITALS: BMI 28.3
== END 2023-02-04 09:52 | disposition home or self-care (01) ==
PROVIDERS: PCP Internal Medicine; Visit Provider Orthopaedic Surgery
DX: G56.03 Carpal tunnel syndrome, bilateral upper limbs (principal); G56.22 Lesion of ulnar nerve, left upper limb; M72.0 Palmar fascial fibromatosis [Dupuytren]
CPT/HCPCS: 99213

== ENCOUNTER → 2023-02-04 08:53 | Outpatient (BNVA) | payer OTHER, SELFPAY | PROVIDERS: PCP Internal Medicine; Visit Provider Orthopaedic Surgery | DX: G56.03 Carpal tunnel syndrome, bilateral upper limbs (principal); G56.22 Lesion of ulnar nerve, left upper limb; M72.0 Palmar fascial fibromatosis [Dupuytren]; M67.439 Ganglion, unspecified wrist | CPT/HCPCS: 99212 ==

== ENCOUNTER 2023-02-19 13:56 | Outpatient (AMB) | payer OTHER, SELFPAY ==
--- NOTE | 2023-02-19 13:59 | A.OFFPC_ITS ---
Vital Signs 3 02/19/23 14:01 Height 5 ft 5 in Weight 173 lb BMI 28.8 BP 100/64 Blood Pressure Location Lt brachial Position Sitting Pulse 99 Pulse Source Pulse Oximeter Pulse Oximetry (%) 100 Intake Visit Reasons: 3 month fu Allergies No Known Allergies [No Known Allergies*] Allergy (Verified 02/19/23 14:01) Medication List - Last Reconciled 02/19/23 by Nancy Houston MD amlodipine 5 mg PO DAILY 90 days atorvastatin 10 mg PO DAILY 90 days diclofenac sodium 3% 1 appl topical BID 30 days fluoxetine 20 mg PO DAILY 90 days ibuprofen 800 mg PO TID PRN 30 days irbesartan 75 mg PO DAILY 90 days Tobacco use date assessed: 02/19/23 Dental Screening Dental Screen Date: 02/19/23 Did you have a dental visit in the last 12 months?: Yes Did you have a dental problem in the last 6 months where you did not have access to dental care?: Yes Was dental information given to patient?: Patient has dentist HPI 3 month fu 2 HPI0 Details Patient is 62-year-old female came in today for her follow-up appointment She has developed a large skin growth right side of her torso which is causing irritation with clothing Patient wants that removed. Due to size of skin growth I am looking her with the surgery rather than dermatology Patient continued to smoke and continue to drink and have no intention to stop She says that she mainly drinks beer about 2 every day Labs done in November reviewed She is taking all her medications.? Hypertension:? Blood pressure is low today and patient is complaining of feeling lightheaded, patient is on amlodipine 5 mg and irbesartan 75 mg.? I have stopped amlodipine 5 mg ? Depression is stable with fluoxetine 20 mg She is also on atorvastatin 10 mg daily for lipid control.? Severe osteoarthritis knees:? Taking meloxicam 7.5 mg as needed only with food patient is aware of side effects Follow-up 3 months [facility] Medical History High blood pressure High blood cholesterol Surgical History No pertinent past surgical history Family History Other Mental health disorder Social History Housing: Other Alcohol intake: never Patient Tobacco Use Status: Current everyday Tobacco user Cigarettes Per Day: 3 Years Smoked: 40 years e-Cigarette/Vaping Use: Never Used service: No Current occupational status: disabled Cognitive needs: No Hearing needs: No Vision needs: No Questionnaire Thrive Questionnaire Date Thrive assessed: 11/08/22 RAAD-7 AMB Questionnaire RAAD-7 Date RAAD - 7 assessed: 11/08/22 Source: Developed by Drs. Damien Carias, Suyapa Gee, Reggie Jaeger and colleagues, with an educational shimon from [employer]. Review of Systems Const Denies chills and Denies fever(s) ENT Denies epistaxis and Denies nasal discharge Card Denies chest pain Resp Denies chest congestion, Denies cough and Denies hemoptysis GI Denies diarrhea and Denies nausea Skin/Breast Denies rash Neuro Reports no additional complaints Psych Reports no additional complaints Endo Reports no additional complaints Physical exam (Primary Care) Vital Signs: Last Vital Signs Pulse 99 02/19/23 14:01 BP 100/64 02/19/23 14:01 Pulse Ox 100 02/19/23 14:01 BMI result Body Mass Index 28.8 Tobacco/Smoking Status: Tobacco use Status Tobacco use date assessed 02/19/23 02/19/23 14:02 Patient Tobacco Use Status Current everyday Tobacco 02/19/23 14:00 e-Cigarette/Vaping Use Never Used 02/19/23 14:00 Thrive Assessment: Date of Thrive Assessment Date Thrive assessed 11/08/22 02/19/23 14:00 Const General: cooperative, comfortable and no acute distress Orientation/consciousness: patient oriented x3 HENMT Head: Yes normocephalic Eyes General: appearance normal, both eyes and all related structures Neck Neck: Yes supple Resp Effort & Inspection: normal respiratory effort, no cough and no stridor Cardio Rhythm: regular rhythm Heart sounds: S1 normal heart sound present and S2 normal heart sound present Skin General skin exam: turgor normal Full body images: 2 1. Very large skin growth Neuro General: patient oriented x3, tone normal and moves all extremities Extrem Right lower extremity: no edema Left lower extremity: no edema Assessment and Plan Assessment & Plan (1) Abnormal skin growth: Code(s): D49.2 - Neoplasm of unspecified behavior of bone, soft tissue, and skin (2) Alcoholism: Comment: CONSEQUENCES OF DRINKING PROBLEMS There are a number of serious consequences of drinking alcohol excessively -------Excessive alcohol consumption is a leading preventable cause of in the [place]. --------Drinking alcohol increases the risk of traffic accidents, suicide, drowning, and other serious injuries. -------Alcohol use continues to be the leading cause of injuries treated in trauma centers and emergency departments . --------Alcohol-related liver disease may lead to end-stage liver disease (cirrhosis) and . --------Alcohol increases the risk of certain cancers of the mouth, esophagus, throat, liver, and breast. Code(s): F10.20 - Alcohol dependence, uncomplicated (3) Hypertension, essential: Code(s): I10 - Essential (primary) hypertension (4) Depression, major, recurrent: Code(s): F33.9 - Major depressive disorder, recurrent, unspecified Qualifiers: Active/Remission status: in full remission Qualified Code(s): F33.42 - Major depressive disorder, recurrent, in full remission (5) Lipid disorder: Code(s): E78.9 - Disorder of lipoprotein metabolism, unspecified (6) Tobacco use: Code(s): Z72.0 - Tobacco use (7) Vitamin D deficiency: Code(s): E55.9 - Vitamin D deficiency, unspecified (8) B12 deficiency: Code(s): E53.8 - Deficiency of other specified B group vitamins (9) Elevated fasting blood sugar: Code(s): R73.01 - Impaired fasting glucose (10) Osteoarthritis of knees, bilateral: Code(s): M17.0 - Bilateral primary osteoarthritis of knee Qualifiers: Osteoarthritis type: primary Qualified Code(s): M17.0 - Bilateral primary osteoarthritis of knee Plan Patient is 62-year-old female came in today for her follow-up appointment She has developed a large skin growth right side of her torso which is causing irritation with clothing Patient wants that removed. Due to size of skin growth I am looking her with the surgery rather than dermatology Patient continued to smoke and continue to drink and have no intention to stop She says that she mainly drinks beer about 2 every day Labs done in November reviewed She is taking all her medications.? Hypertension:? Blood pressure is low today and patient is complaining of feeling lightheaded, patient is on amlodipine 5 mg and irbesartan 75 mg.? I have stopped amlodipine 5 mg ? Depression is stable with fluoxetine 20 mg She is also on atorvastatin 10 mg daily for lipid control.? Severe osteoarthritis knees:? Taking meloxicam 7.5 mg as needed only with food patient is aware of side effects Follow-up 3 months Orders: Referrals 2 General Surgery Referral D49.2 - Neoplasm of unspecified behavior of bone, soft tissue, and skin Medications: On Hold 2 amlodipine Hold Comment: Doctor's Order 5 mg PO DAILY 90 days 90 tabs 0RF I10 - Essential (primary) hypertension Coding Level of Care Code Est Pt Level 4 (15029) Diagnoses Abnormal skin growth D49.2 Alcoholism F10.20 Hypertension, essential I10 Recurrent major depressive disorder, in full remission F33.42 Active/Remission status: in full remission Lipid disorder E78.9 Tobacco use Z72.0 Vitamin D deficiency E55.9 B12 deficiency E53.8 Elevated fasting blood sugar R73.01 Primary osteoarthritis of both knees M17.0 Osteoarthritis type: primary
[2023-02-19 14:01] VITALS: BP 100/64; PULSE 99; O2SAT 100; BMI 28.8
== END 2023-02-19 14:30 | disposition home or self-care (01) ==
PROVIDERS: PCP Internal Medicine; Visit Provider Internal Medicine
DX: D49.2 Neoplasm of unspecified behavior of bone, soft tissue, and skin (principal); F10.20 Alcohol dependence, uncomplicated; I10 Essential (primary) hypertension; F33.42 Major depressive disorder, recurrent, in full remission; E78.9 Disorder of lipoprotein metabolism, unspecified; Z72.0 Tobacco use; E55.9 Vitamin D deficiency, unspecified; E53.8 Deficiency of other specified B group vitamins; R73.01 Impaired fasting glucose; M17.0 Bilateral primary osteoarthritis of knee
CPT/HCPCS: 99214

== ENCOUNTER 2023-05-14 10:22 | Outpatient (AMB) | payer OTHER, SELFPAY ==
[2023-05-14 10:33] VITALS: BMI 28.8
--- NOTE | 2023-05-14 10:33 | A.OFFVIS_ITS ---
Intake Vital Signs 05/14/23 10:33 Height 5 ft 5 in Weight 173 lb BMI 28.8 Intake Visit Reasons: OV-Bump right wrist-drained Intake Note: Magdalene 62 yr old female presents today for her follow up visit for her Ganglion cyst of volar aspect of wrist. States she would like to have it drained today. Allergies No Known Allergies [No Known Allergies*] Allergy (Verified 05/14/23 10:33) HPI OV-Bump right wrist-drained HPI Details Magdalene is a 62 year old right hand dominant woman who returns to discuss her right volar wrist ganglion. She is S/P left Carpal tunnel release, DOS: 03/21/22. She has right hand numbness consistent with carpal tunnel syndrome, a mass over the right FCR tendon, and known left cubital tunnel syndrome based on her EMG, which was not symptomatic. She says her cyst has been causing her increased pain and she would like to discuss treatment options. She continues to complain of bilateral hand numbness, and she did not complete her ordered NCS following her appointment on 02/04/23. She says she also occasionally has numbness in her feet. She denies any Diabetes but says she has a hx of an ACDF in the past. [facility] Medical History High blood pressure High blood cholesterol Surgical History No pertinent past surgical history Family History Other Mental health disorder Social History Housing: Other Alcohol intake: never Patient Tobacco Use Status: Current everyday Tobacco user Cigarettes Per Day: 3 Years Smoked: 40 years e-Cigarette/Vaping Use: Never Used service: No Current occupational status: disabled Cognitive needs: No Hearing needs: No Vision needs: No Physical Exam Vital Signs: BMI result Body Mass Index 28.8 Const General: no acute distress and alert Orientation/consciousness: patient oriented x3 Neuro General: patient oriented x3 Extrem Other: Evaluation of Bilateral Upper Extremity: The patient is alert, oriented, and in no acute distress Regarding the right wrist: She does now have a right volar wrist ganglion, which may be coming off of the FCR tendon. This measures ~1cm in diameter. Radial artery palpated just radial to the cyst, but not right over the cyst. EMG Nerve Conduction study: Bilateral study performed. IMPRESSION:? This study revealed mild left ulnar neuropathy across cubital tunnel. Otherwise, there was no significant abnormality. Reta Houston MD 02/14/2022 MRI: MR/MR wrist RT wo con IMPRESSION: 1. Limited examination because of image degrading motion artifact. ? 2. Lobulated fluid within the tendon sheath of the flexor carpi radialis. This most likely reflects a tenosynovitis. Ganglion cyst within the tendon sheath is thought to be unlikely. The tendon itself appears intact. ? Dictated By: Jake Gonzalez MD 11/05/21 Psych Appearance: grossly normal Affect: normal affect Attitude: cooperative Office Procedures Fracture Care Details: No fracture, aspiration Fracture Billing Code: Fracture Billing Code Assessment & Plan Assessment & Plan (1) Carpal tunnel syndrome on both sides: Code(s): G56.03 - Carpal tunnel syndrome, bilateral upper limbs (2) Cubital tunnel syndrome on left: Code(s): G56.22 - Lesion of ulnar nerve, left upper limb (3) Dupuytren's disease of palm of left hand: Code(s): M72.0 - Palmar fascial fibromatosis [Dupuytren] (4) Ganglion cyst of volar aspect of wrist: Code(s): M67.439 - Ganglion, unspecified wrist (5) Bilateral hand numbness: Code(s): R20.0 - Anesthesia of skin Plan Assessment & Plan: 1. Right volar wrist ganglion Measuring ~1cm in diameter today, and extending to where it was rather superficial beneath the skin Aspiration today of a significant amount of clear viscous fluid consistent with a ganglion Based on this aspiration, this is more likely a volar wrist ganglion involving the joint as opposed to involving the FCR tendon sheath I educated her about this condition I discussed operative and non-operative treatment options The patient would like to proceed with aspiration today Aspiration #1: The risks and benefits of aspiration, including but not limited to risk of damage to blood vessels, nerves, tendons, infection, failure to improve symptoms, increased pain, and possible need for further aspirations or surgical intervention. After obtaining written consent, I sterilely prepped the area over the Right volar wrist ganglion. I then injected subcutaneously with a small amount 1% lidocaine. I then passed an 18 gauge needle into the ganglion and aspirated some clear viscous fluid consistent with a ganglion. Some remaining viscous fluid was then pushed out of the ganglion. We likely got out somewhere between 1 and 2 mL of clear viscous fluid. The patient tolerated this well and with no complications. 2. Right hand numbness Dense numbness in the median nerve distribution She has a hx of ACDF in the past, and reports having occasional numbness in her bilateral feet. A NCS was ordered at her last appointment to assess her bilateral hand & feet numbness. She has not completed this I stressed the importance of completing this NCS, and she is in agreement I ordered a new NCS to assess her bilateral hands, to be done by Dr. Jimenez She will follow up when completed for review. 3. Left Carpal tunnel syndrome, S/P release DOS: 03/21/22 Pre-operatively with dense numbness in the median nerve distribution and radial half of ring finger Still with dense numbness, but improvement in her nighttime symptoms EMG in 2021 negative for left Carpal Tunnel 4. Left Dupuytrens nodule In line with the ring finger, no contracture I educated her about this condition If she develops any contracture of her finger, she can follow up to discuss treatment 5. Left Cubital Tunnel syndrome Based on EMG Not particularly symptomatic at this time This will be managed conservatively for now. Scribed for Sanjuanita Brizuela MD by Marcelo Donohue, medical services assistant, on 05/14/23 at 11:20 AM, EST. Orders: Orders NE nerve conduction velocity Today R20.0 - Anesthesia of skin, R20.2 - Paresthesia of skin Coding Level of Care Code Est Pt Level 3 (43521) Diagnoses Carpal tunnel syndrome on both sides G56.03 Cubital tunnel syndrome on left G56.22 Dupuytren's disease of palm of left hand M72.0 Ganglion cyst of volar aspect of wrist M67.439 Bilateral hand numbness R20.0 CPT Codes Fracture Care - Fracture Billing Code: Fracture Billing Code ([id number])
== END 2023-05-14 11:25 | disposition home or self-care (01) ==
PROVIDERS: PCP Internal Medicine; Visit Provider Orthopaedic Surgery
DX: M67.431 Ganglion, right wrist (principal); G56.03 Carpal tunnel syndrome, bilateral upper limbs; G56.22 Lesion of ulnar nerve, left upper limb; R20.0 Anesthesia of skin
CPT/HCPCS: 20612; 99213

== ENCOUNTER → 2023-05-14 10:22 | Outpatient (BNVA) | payer OTHER, SELFPAY | PROVIDERS: PCP Internal Medicine; Visit Provider Orthopaedic Surgery | DX: M67.431 Ganglion, right wrist (principal); G56.03 Carpal tunnel syndrome, bilateral upper limbs; G56.22 Lesion of ulnar nerve, left upper limb; M72.0 Palmar fascial fibromatosis [Dupuytren]; R20.0 Anesthesia of skin | CPT/HCPCS: 20612; 99212 ==

== ENCOUNTER 2023-05-27 13:07 | Outpatient (AMB) | payer OTHER, SELFPAY ==
[2023-05-27 13:15] VITALS: BP 178/96; PULSE 86; O2SAT 96; BMI 29.5
--- NOTE | 2023-05-27 13:15 | A.OFFPC_ITS ---
Vital Signs 05/27/23 13:15 Height 5 ft 5 in Weight 177 lb 4 oz BMI 29.5 BP 178/96 H Blood Pressure Location Lt brachial Position Sitting Pulse 86 Pulse Source Pulse Oximeter Pulse Oximetry (%) 96 Oxygen Delivery Method Room Air Intake Visit Reasons: 3 month fu Allergies No Known Allergies [No Known Allergies*] Allergy (Verified 05/27/23 13:16) Medication List - Last Reconciled 05/27/23 by Nancy Houston MD amlodipine 5 mg PO DAILY 90 days atorvastatin 10 mg PO DAILY 90 days diclofenac sodium 3% 1 appl topical BID 30 days fluoxetine 20 mg PO DAILY 90 days ibuprofen 800 mg PO TID PRN 30 days irbesartan 75 mg PO DAILY 90 days Tobacco use date assessed: 05/27/23 Fall risk assessment: No Falls in past year Last assessed Fall Risk: 05/27/23 Dental Screening Dental Screen Date: 05/27/23 Did you have a dental visit in the last 12 months?: No Did you have a dental problem in the last 6 months where you did not have access to dental care?: No Was dental information given to patient?: No HPI 3 month fu HPI Details Patient is 62-year-old female came in today for her follow-up appointment Patient continued to smoke and continue to drink and have no intention to stop She says that she mainly drinks beer about 2 every day Labs done in November reviewed, new set of lab order placed to be done today She is taking all her medications.? Hypertension:? Blood pressure is low today and patient is complaining of feeling lightheaded, irbesartan 75 mg.? Last visit her blood pressure was 100 systolic so I have stopped amlodipine 5 mg But today it is very high so we have to restart, patient have a monitor at home she will call me in 2 days with blood pressure readings with amlodipine 5 mg and losartan 75 mg ? Depression is stable with fluoxetine 20 mg She is also on atorvastatin 10 mg daily for lipid control.? Severe osteoarthritis knees:? Taking meloxicam 7.5 mg as needed only with food patient is aware of side effects Follow-up 3 months [facility] Medical History High blood pressure High blood cholesterol Surgical History No pertinent past surgical history Family History Other Mental health disorder Social History Housing: Other Alcohol intake: never Patient Tobacco Use Status: Current everyday Tobacco user Cigarettes Per Day: 3 Years Smoked: 40 years e-Cigarette/Vaping Use: Never Used service: No Current occupational status: disabled Cognitive needs: No Hearing needs: No Vision needs: No Questionnaire PHQ-9 Over the last 2 weeks, how often have you been bothered by any of the following problems? 1. Little interest or pleasure in doing things: several days 2. Feeling down, depressed, or hopeless: several days 3. Trouble falling or staying asleep, or sleeping too much: several days 4. Feeling tired or having little energy: several days 5. Poor appetite or overeating: not at all 6. Feeling bad about yourself - or that you are a failure or have let yourself or your family down: not at all 7. Trouble concentrating on things, such as reading the newspaper or watching television: not at all 8. Moving or speaking so slowly that other people could have noticed. Or the opposite - being so fidgety or restless that you have been moving around a lot more than usual: several days 9. Thoughts that you would be better off or of hurting yourself in some way: not at all Total score: 5 Depression Screening Interpretation: Negative Depression Screening Done: Yes [id number] - PHQ-9 Billing: Yes Source: Developed by Drs. Damien Carias, Suyapa Gee, Reggie Jaeger and colleagues, with an educational shimon from [employer]. Thrive Questionnaire Date Thrive assessed: 11/08/22 I am a: Patient What is your living situation today?: I have a steady place to live Within the past 12 months, did the food you bought not last and you didn't have the money to get more?: Never true Within the past 12 months, did you worry whether your food would run out before you got money to buy more?: Never true Do you have trouble paying for medicines?: No Do you have trouble getting transportation to medical appointments?: No Do you have trouble paying your heating and electricity bill?: No Do you have trouble taking care of your child, family member or friend?: No Do you have trouble with day-to-day activities such as bathing, preparing meals, shopping, managing finances, etc.?: No Are you currently unemployed and looking for a job?: No Are you interested in more education?: No Please select the resources that you would like help with: None Currently or been in a relationship where the following occur: no concerns reported THRIVE Score: 0 AUDIT C Alcohol Use Questionnaire (AUDIT-C) 1. How often do you have a drink containing alcohol?: 4 or more times a week 2. How many drinks containing alcohol do you have on a typical day when you are drinking?: 3 or 4 3. How often do you have six or more drinks on one occasion?: Never Total Score: 5 Score Reviewed/Action Taken: Yes RAAD-7 AMB Questionnaire RAAD-7 Date RAAD - 7 assessed: 05/27/23 Feeling nervous, anxious, or on edge: 0 = Not at all Not being able to stop or control worryin = Not at all Worrying too much about different things: 0 = Not at all Trouble relaxin = Not at all Being so restless that it is hard to sit still: 0 = Not at all Becoming easily annoyed or irritable: 1 = Several days Feeling afraid as if something awful might happen: 1 = Several days Total RAAD-7 score (0-4 normal; 5-9 mild; 10-14 moderate; 15-21 severe): 2 Source: Developed by Drs. Damien Carias, Suyapa Gee, Reggie Jaeger and colleagues, with an educational shimon from [employer]. RAAD-7 Assessment Billing RAAD-7 Assessment Tool: RAAD-7 Assessment [id number] Review of Systems Const Denies chills and Denies fever(s) ENT Denies epistaxis and Denies nasal discharge Card Denies chest pain Resp Denies chest congestion, Denies cough and Denies hemoptysis GI Denies diarrhea and Denies nausea Skin/Breast Denies rash Neuro Reports no additional complaints Psych Reports no additional complaints Endo Reports no additional complaints Physical exam (Primary Care) Vital Signs: Last Vital Signs Pulse 86 05/27/23 13:15 BP 178/96 H 05/27/23 13:15 Pulse Ox 96 05/27/23 13:15 Oxygen Delivery Method Room Air 05/27/23 13:15 BMI result Body Mass Index 29.5 Tobacco/Smoking Status: Tobacco use Status Tobacco use date assessed 05/27/23 05/27/23 13:16 Patient Tobacco Use Status Current everyday Tobacco 05/27/23 13:16 e-Cigarette/Vaping Use Never Used 05/27/23 13:16 PHQ-9: PHQ-9 Score PHQ-9: Total score 5 05/27/23 13:39 Depression Screening Interpretation: Negative Thrive Assessment: Date of Thrive Assessment Date Thrive assessed 11/08/22 05/27/23 13:16 Currently or been in a relationship where the following occur: no concerns reported Const General: cooperative, comfortable and no acute distress Orientation/consciousness: patient oriented x3 HENMT Head: Yes normocephalic Eyes General: appearance normal, both eyes and all related structures Neck Neck: Yes supple Resp Effort & Inspection: normal respiratory effort, no cough and no stridor Cardio Rhythm: regular rhythm Heart sounds: S1 normal heart sound present and S2 normal heart sound present Skin General skin exam: turgor normal Neuro General: patient oriented x3, tone normal and moves all extremities Extrem Right lower extremity: no edema Left lower extremity: no edema Assessment and Plan Assessment & Plan (1) Hypertension, essential: Code(s): I10 - Essential (primary) hypertension (2) Vitamin D deficiency: Code(s): E55.9 - Vitamin D deficiency, unspecified (3) Depression, major, recurrent: Code(s): F33.9 - Major depressive disorder, recurrent, unspecified Qualifiers: Active/Remission status: in full remission Qualified Code(s): F33.42 - Major depressive disorder, recurrent, in full remission (4) Paresthesias: Code(s): R20.2 - Paresthesia of skin (5) Lipid disorder: Code(s): E78.9 - Disorder of lipoprotein metabolism, unspecified (6) Tobacco use: Code(s): Z72.0 - Tobacco use (7) Alcoholism: Comment: CONSEQUENCES OF DRINKING PROBLEMS There are a number of serious consequences of drinking alcohol excessively -------Excessive alcohol consumption is a leading preventable cause of in the [place]. --------Drinking alcohol increases the risk of traffic accidents, suicide, drowning, and other serious injuries. -------Alcohol use continues to be the leading cause of injuries treated in trauma centers and emergency departments . --------Alcohol-related liver disease may lead to end-stage liver disease (cirrhosis) and . --------Alcohol increases the risk of certain cancers of the mouth, esophagus, throat, liver, and breast. Code(s): F10.20 - Alcohol dependence, uncomplicated (8) B12 deficiency: Code(s): E53.8 - Deficiency of other specified B group vitamins (9) Elevated fasting blood sugar: Code(s): R73.01 - Impaired fasting glucose (10) Osteoarthritis of knees, bilateral: Code(s): M17.0 - Bilateral primary osteoarthritis of knee Qualifiers: Osteoarthritis type: primary Qualified Code(s): M17.0 - Bilateral primary osteoarthritis of knee Plan Patient is 62-year-old female came in today for her follow-up appointment Patient continued to smoke and continue to drink and have no intention to stop She says that she mainly drinks beer about 2 every day She has neuropathy in her feet, most likely secondary to chronic alcohol abuse Labs done in November, new set of lab order placed to be done today Patient is prediabetic She is taking all her medications.? Hypertension:? Blood pressure is low today and patient is complaining of feeling lightheaded, irbesartan 75 mg.? Last visit her blood pressure was 100 systolic so I have stopped amlodipine 5 mg But today it is very high so we have to restart, patient have a monitor at home she will call me in 2 days with blood pressure readings with amlodipine 5 mg and losartan 75 mg ? Depression is stable with fluoxetine 20 mg She is also on atorvastatin 10 mg daily for lipid control.? Severe osteoarthritis knees:? Taking meloxicam 7.5 mg as needed only with food patient is aware of side effects Follow-up 3 months Orders: Orders Complete Blood Count Auto Diff Today E55.9 - Vitamin D deficiency, unspecified, E78.9 - Disorder of lipoprotein metabolism, unspecified, F33.9 - Major depressive disorder, recurrent, unspecified, I10 - Essential (primary) hypertension, R20.2 - Paresthesia of skin, Z72.0 - Tobacco use Comprehensive Met. Panel Today E55.9 - Vitamin D deficiency, unspecified, E78.9 - Disorder of lipoprotein metabolism, unspecified, F33.9 - Major depressive disorder, recurrent, unspecified, I10 - Essential (primary) hypertension, R20.2 - Paresthesia of skin, Z72.0 - Tobacco use LDL Cholesterol Direct Today E55.9 - Vitamin D deficiency, unspecified, E78.9 - Disorder of lipoprotein metabolism, unspecified, F33.9 - Major depressive disorder, recurrent, unspecified, I10 - Essential (primary) hypertension, R20.2 - Paresthesia of skin, Z72.0 - Tobacco use TSH reflex Free T4 Today E55.9 - Vitamin D deficiency, unspecified, E78.9 - Disorder of lipoprotein metabolism, unspecified, F33.9 - Major depressive disorder, recurrent, unspecified, I10 - Essential (primary) hypertension, R20.2 - Paresthesia of skin, Z72.0 - Tobacco use Medications: Resumed amlodipine 5 mg PO DAILY 90 days 90 tabs 0RF I10 - Essential (primary) hypertension amlodipine 5 mg PO DAILY 90 days 90 tabs 0RF I10 - Essential (primary) hypertension Coding Level of Care Code Est Pt Level 4 (57611) Diagnoses Hypertension, essential I10 Vitamin D deficiency E55.9 Recurrent major depressive disorder, in full remission F33.42 Active/Remission status: in full remission Paresthesias R20.2 Lipid disorder E78.9 Tobacco use Z72.0 Alcoholism F10.20 B12 deficiency E53.8 Elevated fasting blood sugar R73.01 Primary osteoarthritis of both knees M17.0 Osteoarthritis type: primary Additional Codes RAAD-7 Assessment Billing - RAAD-7 Assessment Tool: RAAD-7 Assessment 57861 ([id number])
== END 2023-05-27 13:40 | disposition home or self-care (01) ==
PROVIDERS: PCP Internal Medicine; Visit Provider Internal Medicine
DX: I10 Essential (primary) hypertension (principal); F33.42 Major depressive disorder, recurrent, in full remission; F10.20 Alcohol dependence, uncomplicated; E55.9 Vitamin D deficiency, unspecified; R20.2 Paresthesia of skin; E78.9 Disorder of lipoprotein metabolism, unspecified; Z72.0 Tobacco use; E53.8 Deficiency of other specified B group vitamins; R73.01 Impaired fasting glucose; M17.0 Bilateral primary osteoarthritis of knee
CPT/HCPCS: 99214

== ENCOUNTER 2023-05-27 13:43 | Outpatient (REF) | payer OTHER, SELFPAY ==
[2023-05-27 16:08] LABS: MANUAL DIFF FLAG NO
[2023-05-27 16:21] LABS: Basophils Absolute Auto 0.1 X10*3/uL (0.0-0.2); Eosinophils Absolute Auto 0.1 X10*3/uL (0.0-0.4); Eosinophils Percent Auto 1.4 % (0-4); Hemoglobin 13.3 g/dl (12.0-16.0); Imm Gran Abs Auto 0.03 X10*3/uL (0.00-0.03); Imm Gran Pct Auto 0.3 % (0.0-0.4); Lymphocytes Absolute Auto 2.7 X10*3/uL (1.2-4.9); Lymphocytes Percent Auto 30.7 % (20-40); Mean Corpuscular HGB Conc 34.1 g/dl (31.0-35.0); Mean Corpuscular Hemoglobin 32.3 pg (27.0-33.0); Mean Corpuscular Volume 94.7 fL (80.0-98.0); Mean Platelet Volume 10.1 fL (9.4-12.3); Monocytes Absolute Auto 0.5 X10*3/uL (0.1-1.2); Monocytes Percent Auto 5.3 % (2-11); Neutrophils Absolute Auto 5.4 x10*3/uL (2.0-8.3); Neutrophils Percent Auto 61.3 % (45-73); Platelet Count 330 X10*3/uL (160-400); Red Blood Count 4.12 X10*6/uL (4.20-5.50); Red Cell Distribution Width 12.4 % (11.0-16.0); White Blood Count 8.7 X10*3/uL (4.8-10.8)
[2023-05-27 16:37] LABS: Alanine Aminotransferase 11 U/L (0-31); Albumin Level 4.1 g/dL (3.5-5.0); Alkaline Phosphatase 76 U/L (39-117); Anion Gap 16 (12-20); Aspartate Amino Transferase 22 U/L (5-31); Bilirubin Total 0.5 mg/dL (0.0-1.0); Blood Urea Nitrogen 8 mg/dL (9-16); Carbon Dioxide 25 mmol/L (22-29); Chloride 104 mmol/L (96-108); Estimated Glomerular Filt Rate > 60; Glucose Random 82 mg/dL (60-115); Potassium 3.4 mmol/L (3.3-5.1); Sodium 142 mmol/L (135-145); Total Protein 7.4 g/dL (6.5-8.0)
[2023-05-27 16:47] LABS: TSH reflex Free T4 10.06 uIU/mL (0.32-4.0)
[2023-05-27 17:32] LABS: Free T4 (Free Thyroxine) 0.68 ng/dL (0.71-1.85)
[2023-05-29 14:08] LABS: LDL Cholesterol Direct 103 mg/dL (<100)
== END 2023-05-27 13:44 | disposition home or self-care (01) ==
LOC: HO.HMGCLDS 13:43
PROVIDERS: PCP Internal Medicine; Visit Provider Internal Medicine
DX: I10 Essential (primary) hypertension (principal); E55.9 Vitamin D deficiency, unspecified; F33.9 Major depressive disorder, recurrent, unspecified; R20.2 Paresthesia of skin; E78.9 Disorder of lipoprotein metabolism, unspecified; Z72.0 Tobacco use
CPT/HCPCS: 36415; 80053; 83721; 84439; 84443; 85025

== ENCOUNTER 2023-05-29 08:29 | Outpatient (AMB) | payer OTHER, SELFPAY ==
--- NOTE | 2023-05-29 09:40 | A.OFFPC_ITS ---
Intake Visit Reasons: Discuss Labs~[phone] Allergies No Known Allergies [No Known Allergies*] Allergy (Verified 05/27/23 13:16) Medication List - Last Reconciled 05/29/23 by Nancy Houston MD amlodipine 5 mg PO DAILY 90 days atorvastatin 10 mg PO DAILY 90 days diclofenac sodium 3% 1 appl topical BID 30 days fluoxetine 20 mg PO DAILY 90 days ibuprofen 800 mg PO TID PRN 30 days irbesartan 75 mg PO DAILY 90 days Tobacco use date assessed: 05/27/23 HPI Discuss Labs~[phone] HPI Details Patients thyroid test came back extremely abnormal She tells me that years ago when she was young she had a procedure done on her thyroid she does not remember exactly what was done and why it was done But she said that she was given medication that she never took I am starting her on levothyroxine 100 mg as her TSH level is above 10 and T4 level is also abnormal She will also take prednisone 50 mg once a day for 3 days as she starts the levothyroxine Blood pressure is still running high for that we will book appointment so we can check it She says that she has restarted the amlodipine yesterday Has not checked blood pressure after that Patient was notified how to take levothyroxine on empty stomach and then wait 15 minute before she takes other medications COUNT INCLUDES THE [facility] Medical History High blood pressure High blood cholesterol Surgical History No pertinent past surgical history Family History Other Mental health disorder Social History Housing: Other Alcohol intake: never Patient Tobacco Use Status: Current everyday Tobacco user Cigarettes Per Day: 3 Years Smoked: 40 years e-Cigarette/Vaping Use: Never Used service: No Current occupational status: disabled Cognitive needs: No Hearing needs: No Vision needs: No Questionnaire Thrive Questionnaire Date Thrive assessed: 11/08/22 RAAD-7 AMB Questionnaire RAAD-7 Date RAAD - 7 assessed: 05/27/23 Source: Developed by Drs. Damien Carias, Suyapa B.Reggie King and colleagues, with an educational shimon from [employer]. Review of Systems Const Denies chills and Denies fever(s) ENT Denies epistaxis and Denies nasal discharge Card Denies chest pain Resp Denies chest congestion, Denies cough and Denies hemoptysis GI Denies diarrhea and Denies nausea Skin/Breast Denies rash Neuro Reports no additional complaints Psych Reports no additional complaints Endo Reports no additional complaints Physical exam (Primary Care) Tobacco/Smoking Status: Tobacco use Status Tobacco use date assessed 05/27/23 05/29/23 09:43 Patient Tobacco Use Status Current everyday Tobacco 05/29/23 09:43 e-Cigarette/Vaping Use Never Used 05/29/23 09:43 Thrive Assessment: Date of Thrive Assessment Date Thrive assessed 11/08/22 05/29/23 09:43 Telehealth Telehealth Location of provider rendering services: practice address Location of patient: address on file Patient Identification confirmed using: Name, : Yes Telehealth method: video (Attempted) Patient verbally consented to treatment: Yes Patient verbally consented to billing insurance company: Yes Patient informed of any privacy concerns related to visit: Yes Assessment and Plan Assessment & Plan (1) Other specified hypothyroidism: Code(s): E03.8 - Other specified hypothyroidism (2) Hypertension, essential: Code(s): I10 - Essential (primary) hypertension Plan Patients thyroid test came back extremely abnormal She tells me that years ago when she was young she had a procedure done on her thyroid she does not remember exactly what was done and why it was done But she said that she was given medication that she never took I am starting her on levothyroxine 100 mg as her TSH level is above 10 and T4 level is also abnormal She will also take prednisone 50 mg once a day for 3 days as she starts the levothyroxine Blood pressure is still running high for that we will book appointment so we can check it She says that she has restarted the amlodipine yesterday Has not checked blood pressure after that Patient was notified how to take levothyroxine on empty stomach and then wait 15 minute before she takes other medications Orders: Orders Thyroglobulin Antibodies 6 Weeks E03.8 - Other specified hypothyroidism TSH reflex Free T4 6 Weeks E03.8 - Other specified hypothyroidism Medications: New prednisone 50 mg PO DAILY 3 tabs 0RF 3 days levothyroxine 100 mcg PO DAILY 90 caps 0RF Coding Level of Care Code Tele Est Pt Level 3 (21615) Diagnoses Other specified hypothyroidism E03.8 Hypertension, essential I10
== END 2023-05-29 12:38 | disposition home or self-care (01) ==
LOC: HO.HMGC 08:29
PROVIDERS: PCP Internal Medicine; Visit Provider Internal Medicine
DX: E03.8 Other specified hypothyroidism (principal); I10 Essential (primary) hypertension
CPT/HCPCS: 99213

== ENCOUNTER → 2023-06-18 10:20 | Outpatient (BNVA) | payer OTHER, SELFPAY | PROVIDERS: PCP Internal Medicine; Visit Provider Orthopaedic Surgery ==

== ENCOUNTER 2023-07-16 13:03 | Outpatient (AMB) | payer OTHER, SELFPAY ==
--- NOTE | 2023-07-16 13:05 | MHC.OFFVIS ---
Intake Vital Signs 07/16/23 13:07 Height 5 ft 5 in Weight 175 lb BMI 29.1 Handedness Left Intake Visit Reasons: OV - Right Wrist Cyst - Drained 05/14/23 Intake Note: Magdalene 62 yr old left hand dominant female presents today for her follow up visit for her Ganglion cyst of volar aspect of wrist s/p drained from 05/14/23. States it has gotten better when she got it drained. Patient informed me that she notices 2 other cysts growing one on her index finger and on the palm of her left hand. Allergies No Known Allergies [No Known Allergies*] Allergy (Verified 07/16/23 13:07) HPI OV - Right Wrist Cyst - Drained 05/14/23 HPI Details Magdalene is a 62 year old right hand dominant woman who returns with multiple complaints. She complains of a new mass on her left index finger, as well as one in her left palm. She is S/P right volar wrist ganglion aspiration, done on 05/14/23. She says this has returned following her aspiration, but she says this is not particularly bothersome at this time. She is S/P left Carpal tunnel release, DOS: 03/21/22. She has right hand numbness consistent with carpal tunnel syndrome, a mass over the right FCR tendon, and known left cubital tunnel syndrome based on her EMG, which was not symptomatic. She continues to complain of bilateral hand numbness, and she did not complete her ordered nerve conduction studies. Her most recent was scheduled on 06/20/23. She says she also occasionally has numbness in her feet. She denies any Diabetes but says she has a hx of an ACDF in the past. [facility] Medical History High blood pressure High blood cholesterol Surgical History No pertinent past surgical history Family History Other Mental health disorder Social History Housing: Other Alcohol intake: never Patient Tobacco Use Status: Current everyday Tobacco user Cigarettes Per Day: 3 Years Smoked: 40 years e-Cigarette/Vaping Use: Never Used service: No Current occupational status: disabled Cognitive needs: No Hearing needs: No Vision needs: No Review of Systems Const All systems reviewed & are unremarkable except as noted in HPI and below Physical Exam Vital Signs: BMI result Body Mass Index 29.1 Const General: no acute distress and alert Orientation/consciousness: patient oriented x3 Neuro General: patient oriented x3 Extrem Other: Evaluation of Bilateral Upper Extremity: The patient is alert, oriented, and in no acute distress Neuro: Dense numbness to the tips of all digits today in clinic Vascular: Cap refill brisk General: Regarding the right wrist: She does have a right volar wrist ganglion. This measures ~1cm in diameter. Radial artery palpated just radial to the cyst, but not right over the cyst. She has a mass on the dorsal ulnar aspect of her left index finger D IP joint consistent with a mucous cyst She has a Dupuytrens nodule in her left palm, in line with the ring finger. No evidence of Dupuytrens cord or contractures at this time. EMG Nerve Conduction study: Bilateral study performed. IMPRESSION:? This study revealed mild left ulnar neuropathy across cubital tunnel. Otherwise, there was no significant abnormality. Reta Houston MD 02/14/2022 MRI: MR/MR wrist RT wo con IMPRESSION: 1. Limited examination because of image degrading motion artifact. ? 2. Lobulated fluid within the tendon sheath of the flexor carpi radialis. This most likely reflects a tenosynovitis. Ganglion cyst within the tendon sheath is thought to be unlikely. The tendon itself appears intact. ? Dictated By: Jake Gonzalez MD 11/05/21 Psych Appearance: grossly normal Affect: normal affect Attitude: cooperative Assessment & Plan Assessment & Plan (1) Carpal tunnel syndrome on both sides: Code(s): G56.03 - Carpal tunnel syndrome, bilateral upper limbs (2) Cubital tunnel syndrome on left: Code(s): G56.22 - Lesion of ulnar nerve, left upper limb (3) Dupuytren's disease of palm of left hand: Code(s): M72.0 - Palmar fascial fibromatosis [Dupuytren] (4) Ganglion cyst of volar aspect of wrist: Code(s): M67.439 - Ganglion, unspecified wrist (5) Bilateral hand numbness: Code(s): R20.0 - Anesthesia of skin (6) Digital mucous cyst of finger of left hand: Code(s): M67.442 - Ganglion, left hand Plan Assessment & Plan: 1. Right volar wrist ganglion, recurrent S/P aspiration Date of procedure: 05/14/23 Measuring ~1cm in diameter today, and extending to where it was rather superficial beneath the skin I educated her about this condition and we discussed operative and non operative treatment options. She has not interested in surgery at this time and says it is not bothering her that much. 2. Right hand numbness Dense numbness in all fingers She has a hx of ACDF in the past, and reports having occasional numbness in her bilateral feet. A NCS was ordered at her last appointment to assess her bilateral hand & feet numbness. She has not completed this I stressed the importance of completing this NCS, and she is in agreement I ordered a new NCS to assess her bilateral hands, to be done by Dr. Jimenez She will follow up when completed for review. 3. Left Carpal tunnel syndrome, S/P release DOS: 03/21/22 Pre-operatively with dense numbness in the median nerve distribution and radial half of ring finger Still with dense numbness, but improvement in her nighttime symptoms EMG in 2021 negative for left Carpal Tunnel 4. Left Cubital Tunnel syndrome With dense numbness. 5. Left hand Dupuytrens nodule In line with the ring finger, no contracture I educated her about this condition If she develops any contracture of her finger, she can follow up to discuss treatment 6. Left index finger mucous cyst Dorsal aspect Not particularly bothersome today Scribed for Sanjuanita Brizuela MD by Marcelo Donohue, rn medical inpatient services, on 07/16/23 at 1:15 PM, EST. Orders: Orders NE nerve conduction velocity Today R20.0 - Anesthesia of skin, R20.2 - Paresthesia of skin Coding Level of Care Code Est Pt Level 3 (02700) Diagnoses Carpal tunnel syndrome on both sides G56.03 Cubital tunnel syndrome on left G56.22 Dupuytren's disease of palm of left hand M72.0 Ganglion cyst of volar aspect of wrist M67.439 Bilateral hand numbness R20.0 Digital mucous cyst of finger of left hand M67.442
[2023-07-16 13:07] VITALS: BMI 29.1
== END 2023-07-16 13:41 | disposition home or self-care (01) ==
PROVIDERS: PCP Internal Medicine; Visit Provider Orthopaedic Surgery
DX: G56.03 Carpal tunnel syndrome, bilateral upper limbs (principal); G56.22 Lesion of ulnar nerve, left upper limb; M72.0 Palmar fascial fibromatosis [Dupuytren]
CPT/HCPCS: 99213

== ENCOUNTER → 2023-07-16 13:03 | Outpatient (BNVA) | payer OTHER, SELFPAY | PROVIDERS: PCP Internal Medicine; Visit Provider Orthopaedic Surgery | DX: G56.22 Lesion of ulnar nerve, left upper limb (principal); G56.01 Carpal tunnel syndrome, right upper limb; M72.0 Palmar fascial fibromatosis [Dupuytren]; M67.439 Ganglion, unspecified wrist | CPT/HCPCS: 99212 ==

== ENCOUNTER 2023-08-05 11:35 | Outpatient (REF) | payer OTHER, SELFPAY ==
[2023-08-05 14:22] LABS: TSH reflex Free T4 0.27 uIU/mL (0.32-4.0)
[2023-08-05 19:28] LABS: Free T4 (Free Thyroxine) 1.23 ng/dL (0.71-1.85)
[2023-08-06 13:08] LABS: Thyroglobulin Antibodies <1 IU/mL (< or = 1)
== END 2023-08-05 11:36 | disposition home or self-care (01) ==
LOC: HO.HMGCLDS 11:35
PROVIDERS: PCP Internal Medicine; Visit Provider Internal Medicine
DX: E03.8 Other specified hypothyroidism (principal)
CPT/HCPCS: 36415; 84439; 84443; 86800

== ENCOUNTER 2023-08-15 09:13 | Outpatient (REF) | payer OTHER, SELFPAY ==
--- NOTE | 2023-08-15 09:15 | EMG_ITS ---
Chief complaint: Numbness on tips of fingers. Denies neck pain but admits to neck ache. Patient is a poor historian. On chart review, she is status post a ACDF C3-[address] Guaman 2021. And left Carpal Tunnel Syndrome surgery 2021. Last EMG done by Dr. Houston 2021 showed slowing of ulnar nerve across left elbow. Less cervical MRI 2020. Reason for referral: Evaluate for ulnar neuropathy Referred by: Dr. Brizuela Procedure done: Bilateral upper extremities NCS/EMG Precautions and/or limitations: Prior cervical fusion The limb temperature was monitored continuously and remained between 32-36 degrees C during the performance of the NCS. Ulnar motor NCS was performed with moderate elbow flexion between 70-90 degrees, with across-elbow distance of 10 cm. Nerve Conduction Studies Anti Sensory Summary Table ?Stim Site NR Onset (ms) Norm Onset (ms) Peak (ms) Norm Peak (ms) O-P Amp (?V) Norm O-P Amp Site1 Site2 Delta-0 (ms) Dist (cm) Jose (m/s) Norm Jose (m/s) Left Median Anti Sensory (2nd Digit) Wrist ? 2.6 3.5 <3.6 34.8 >10 Wrist 2nd Digit 2.6 14.0 54 Right Median Anti Sensory (2nd Digit) Wrist ? 2.8 3.6 <3.6 11.9 >10 Wrist 2nd Digit 2.8 14.0 50 Left Radial Anti Sensory (Thumb) Forearm ? 1.5 2.3 <3.1 48.9 Forearm Thumb 1.5 0.0 Right Radial Anti Sensory (Thumb) Forearm ? 1.8 2.4 <3.1 23.3 Forearm Thumb 1.8 0.0 Left Ulnar Anti Sensory (5th Digit) Wrist ? 2.5 3.3 <3.7 29.2 >15.0 Wrist 5th Digit 2.5 14.0 56 Right Ulnar Anti Sensory (5th Digit) Wrist ? 0.9 3.7 <3.7 19.1 >15.0 Wrist 5th Digit 0.9 14.0 156 Motor Summary Table ?Stim Site NR Onset (ms) Norm Onset (ms) O-P Amp (mV) Norm O-P Amp iAmp (mV) Amp (1st) (%) Site1 Site2 Delta-0 (ms) Dist (cm) Jose (m/s) Norm Jose (m/s) Left Median Motor (Abd Poll Brev) Wrist ? 3.5 <3.9 10.1 >4.5 12.1 100.0 Elbow Wrist 3.8 19.0 50 >45 Elbow ? 7.3 9.3 11.2 92.1 Right Median Motor (Abd Poll Brev) Wrist ? 3.2 <3.9 10.2 >4.5 12.3 100.0 Elbow Wrist 4.0 20.0 50 >45 Elbow ? 7.2 13.4 16.5 131.4 Left Ulnar Motor (Abd Dig Minimi) Wrist ? 3.0 <3.0 7.1 >5 8.2 100.0 B Elbow Wrist 3.6 19.0 53 >45 B Elbow ? 6.6 7.4 8.5 104.2 A Elbow B Elbow 1.9 10.0 53 >45 A Elbow ? 8.5 7.3 8.4 102.8 Right Ulnar Motor (Abd Dig Minimi) Wrist ? 3.0 <3.0 5.2 >5 5.9 100.0 B Elbow Wrist 4.1 19.0 46 >45 B Elbow ? 7.1 5.2 6.1 100.0 A Elbow B Elbow 1.9 10.0 53 >45 A Elbow ? 9.0 5.0 5.9 96.2 EMG ?Side Muscle Nerve Root Ins Act Fibs Psw Amp Dur Poly Recrt Int Pat Comment Right 1stDorInt Ulnar C8-T1 Incr 1+ 1+ Nml Nml 0 Nml Complete Right ExtIndicis Radial (Post Int) C7-8 Nml 1+ 1+ Nml Nml 0 Nml Complete Right FlexCarRad Median C6-7 Nml Nml Nml Nml Nml 0 Nml Complete Right Biceps Musculocut C5-6 Nml Nml Nml Nml Nml 0 Nml Complete Right Triceps Radial C6-7-8 Nml Nml Nml Nml Nml 0 Nml Complete Right Deltoid Axillary C5-6 Nml Nml Nml Nml Nml 0 Nml Complete Left 1stDorInt Ulnar C8-T1 Incr 1+ 1+ Nml Nml 0 Nml Complete Left FlexCarRad Median C6-7 Nml Nml Nml Nml Nml 0 Nml Complete Left Biceps Musculocut C5-6 Nml Nml Nml Nml Nml 0 Nml Complete Left Triceps Radial C6-7-8 Nml Nml Nml Incr Incr 0 Nml Complete Left Deltoid Axillary C5-6 Nml Nml Nml Nml Nml 0 Nml Complete FINDINGS: All motor and sensory nerves tested showed normal latencies, amplitudes and conduction velocities. Concentric needle EMG was performed in selected muscles of the bilateral upper extremities. Study revealed signs of electric abnormalities as shown in the table. Left triceps showed increased duration and amplitude. Bilateral FDI showed increased insertional activity, PSWs and fibrillations. Right EIP showed increased insertional activity, PSWs and fibrillations. IMPRESSION: 1. This is an abnormal study. 2. 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 3. There is no electrodiagnostic evidence for median neuropathy, ulnar neuropathy or brachial plexopathy. Thank you for your kind referral. Joy Caro MD, LENY Board Certified, [place] [employer] and Rehabilitation (ABPMR) Board Certified, [place] Board of Electrodiagnostic Medicine (ABEM) CODIN [id number] x 2 MTDD
== END 2023-08-15 09:14 | disposition home or self-care (01) ==
LOC: HO.NEURO 09:13
PROVIDERS: PCP Internal Medicine; Visit Provider Orthopaedic Surgery
DX: R20.0 Anesthesia of skin (principal); R20.2 Paresthesia of skin
CPT/HCPCS: 95886; 95911

== ENCOUNTER → 2023-08-15 09:15 | Outpatient (BNV) | payer OTHER, SELFPAY | PROVIDERS: PCP Internal Medicine; Visit Provider Physical Medicine & Rehabilitation | DX: M54.12 Radiculopathy, cervical region (principal) | CPT/HCPCS: 95886; 95911 ==

== ENCOUNTER 2023-08-21 08:34 | Outpatient (AMB) | payer OTHER, SELFPAY ==
--- NOTE | 2023-08-21 10:14 | MHC.PC.OV ---
Intake Visit Reasons: Discuss Results~ [phone] Allergies No Known Allergies [No Known Allergies*] Allergy (Verified 07/16/23 13:07) Medication List - Last Reconciled 08/21/23 by Nancy Houston MD amlodipine 5 mg PO DAILY 90 days atorvastatin 10 mg PO DAILY 90 days diclofenac sodium 3% 1 appl topical BID 30 days fluoxetine 20 mg PO DAILY 90 days ibuprofen 800 mg PO TID PRN irbesartan 75 mg PO DAILY 90 days levothyroxine 88 mcg PO DAILY 90 days prednisone 50 mg PO DAILY 3 days Tobacco use date assessed: 05/27/23 Dental Screening Dental Screen Date: 05/27/23 HPI Discuss Results~ [phone] HPI Details TSH level came back low Thyroid med dose reduced to 75 mcg she is currently taking 88 mcg PFSH Medical History High blood pressure High blood cholesterol Surgical History No pertinent past surgical history Family History Other Mental health disorder Social History Housing: Other Alcohol intake: never Patient Tobacco Use Status: Current everyday Tobacco user Cigarettes Per Day: 3 Years Smoked: 40 years Packs per year/per ci.00 e-Cigarette/Vaping Use: Never Used service: No Current occupational status: disabled Cognitive needs: No Hearing needs: No Vision needs: No Questionnaire Thrive Questionnaire Date Thrive assessed: 11/08/22 RAAD-7 AMB Questionnaire RAAD-7 Date RAAD - 7 assessed: 05/27/23 Source: Developed by Drs. Damien Carias, Suyapa Gee, Reggie Jaeger and colleagues, with an educational shimon from [employer]. Review of Systems Const Denies chills and Denies fever(s) ENT Denies epistaxis and Denies nasal discharge Card Denies chest pain Resp Denies chest congestion, Denies cough and Denies hemoptysis GI Denies diarrhea and Denies nausea Skin/Breast Denies rash Neuro Reports no additional complaints Psych Reports no additional complaints Endo Reports no additional complaints Physical exam (Primary Care) Tobacco/Smoking Status: Tobacco use Status Tobacco use date assessed 05/27/23 08/21/23 10:15 Patient Tobacco Use Status Current everyday Tobacco 08/21/23 10:15 e-Cigarette/Vaping Use Never Used 08/21/23 10:15 Thrive Assessment: Date of Thrive Assessment Date Thrive assessed 11/08/22 08/21/23 10:15 Telehealth Telehealth Telehealth Platform: [employer] Location of provider rendering services: practice address Location of patient: address on file Patient Identification confirmed using: Name, : Yes Telehealth method: voice only Patient verbally consented to treatment: Yes Patient verbally consented to billing insurance company: Yes Patient informed of any privacy concerns related to visit: Yes Minutes spent on Phone/Video with Pt.: 13 Assessment and Plan Assessment & Plan (1) Other specified hypothyroidism: Code(s): E03.8 - Other specified hypothyroidism Plan TSH level came back low Thyroid med dose reduced to 75 mcg she is currently taking 88 mcg Medications: Changed From levothyroxine 88 mcg PO DAILY 90 days 90 caps 0RF To levothyroxine 75 mcg PO DAILY 90 caps 1RF 90 days Coding Level of Care Code Tele Est Pt Level 3 (87272) Diagnoses Other specified hypothyroidism E03.8
== END 2023-08-21 10:47 | disposition home or self-care (01) ==
LOC: HO.HMGC 08:34
PROVIDERS: PCP Internal Medicine; Visit Provider Internal Medicine
DX: E03.8 Other specified hypothyroidism (principal)
CPT/HCPCS: 99213

== ENCOUNTER 2023-08-27 13:17 | Outpatient (AMB) | payer OTHER, SELFPAY ==
[2023-08-27 13:49] VITALS: BP 122/76; PULSE 76; O2SAT 96; BMI 27.8
--- NOTE | 2023-08-27 13:49 | A.OFFPC_ITS ---
Vital Signs 08/27/23 13:49 Height 5 ft 5 in Weight 167 lb BMI 27.8 BP 122/76 Blood Pressure Location Rt brachial Position Sitting Pulse 76 Pulse Source Pulse Oximeter Pulse Oximetry (%) 96 Oxygen Delivery Method Room Air Intake Visit Reasons: 3 Month f/u Allergies No Known Allergies [No Known Allergies*] Allergy (Verified 08/27/23 13:49) Medication List - Last Reviewed 08/27/23 by Noah Pace CMA amlodipine 5 mg PO DAILY 90 days atorvastatin 10 mg PO DAILY 90 days diclofenac sodium 3% 1 appl topical BID 30 days fluoxetine 20 mg PO DAILY 90 days ibuprofen 800 mg PO TID PRN irbesartan 75 mg PO DAILY 90 days levothyroxine 75 mcg PO DAILY 90 days Tobacco use date assessed: 05/27/23 Fall risk assessment: No Falls in past year Last assessed Fall Risk: 08/27/23 Dental Screening Dental Screen Date: 05/27/23 HPI 3 Month f/u HPI Details Patient is 62-year-old female came in today for her follow-up ap pointment Hypothyroidism her thyroid medication was adjusted to 75 mcg, labs were done in May showed slightly low TSH but normal free T4 For now we will continue with 75 mcg, patient will repeat labs again before next visit Patient continued to smoke and continue to drink trying to cut down She has neuropathy in her feet, most likely secondary to chronic alcohol abuse She is taking all her medications.? Hypertension:? Patient is on amlodipine 5 mg and irbesartan 75 mg, blood pressure is controlled ? Depression is stable with fluoxetine 20 mg She is also on atorvastatin 10 mg daily for lipid control.? Severe osteoarthritis knees:? Taking meloxicam 7.5 mg as needed only with food patient is aware of side effects Follow-up 3 months [facility] Medical History High blood pressure High blood cholesterol Surgical History No pertinent past surgical history Family History Other Mental health disorder Social History Housing: Other Alcohol intake: never Patient Tobacco Use Status: Current everyday Tobacco user Cigarettes Per Day: 3 Years Smoked: 40 years Packs per year/per ci.00 e-Cigarette/Vaping Use: Never Used service: No Current occupational status: disabled Cognitive needs: No Hearing needs: No Vision needs: No Questionnaire Thrive Questionnaire Date Thrive assessed: 08/27/23 I am a: Patient What is your living situation today?: I have a steady place to live Within the past 12 months, did the food you bought not last and you didn't have the money to get more?: Never true Within the past 12 months, did you worry whether your food would run out before you got money to buy more?: Never true Do you have trouble paying for medicines?: No Do you have trouble getting transportation to medical appointments?: No Do you have trouble paying your heating and electricity bill?: No Do you have trouble taking care of your child, family member or friend?: No Do you have trouble with day-to-day activities such as bathing, preparing meals, shopping, managing finances, etc.?: No Are you currently unemployed and looking for a job?: No Are you interested in more education?: No Currently or been in a relationship where the following occur: no concerns reported THRIVE Score: 0 RAAD-7 AMB Questionnaire RAAD-7 Date RAAD - 7 assessed: 05/27/23 Source: Developed by Drs. Damien Carias, Suyapa Gee, Reggie Jaeger and colleagues, with an educational shimon from [employer]. Review of Systems Const Denies chills and Denies fever(s) ENT Denies epistaxis and Denies nasal discharge Card Denies chest pain Resp Denies chest congestion, Denies cough and Denies hemoptysis GI Denies diarrhea and Denies nausea Skin/Breast Denies rash Neuro Reports no additional complaints Psych Reports no additional complaints Endo Reports no additional complaints Physical exam (Primary Care) Vital Signs: Last Vital Signs Pulse 76 08/27/23 13:49 BP 122/76 08/27/23 13:49 Pulse Ox 96 08/27/23 13:49 Oxygen Delivery Method Room Air 08/27/23 13:49 BMI result Body Mass Index 27.8 Tobacco/Smoking Status: Tobacco use Status Tobacco use date assessed 05/27/23 08/27/23 13:50 Patient Tobacco Use Status Current everyday Tobacco 08/27/23 13:50 e-Cigarette/Vaping Use Never Used 08/27/23 13:50 Thrive Assessment: Date of Thrive Assessment Date Thrive assessed 08/27/23 08/27/23 13:50 Currently or been in a relationship where the following occur: no concerns reported Const General: cooperative, comfortable and no acute distress Orientation/consciousness: patient oriented x3 HENMT Head: Yes normocephalic Eyes General: appearance normal, both eyes and all related structures Neck Neck: Yes supple Resp Effort & Inspection: normal respiratory effort, no cough and no stridor Cardio Rhythm: regular rhythm Heart sounds: S1 normal heart sound present and S2 normal heart sound present Skin General skin exam: turgor normal Neuro General: patient oriented x3, tone normal and moves all extremities Extrem Right lower extremity: no edema Left lower extremity: no edema Assessment and Plan Assessment & Plan (1) Hypertension, essential: Code(s): I10 - Essential (primary) hypertension (2) Depression, major, recurrent: Code(s): F33.9 - Major depressive disorder, recurrent, unspecified Qualifiers: Active/Remission status: in full remission Qualified Code(s): F33.42 - Major depressive disorder, recurrent, in full remission (3) Vitamin D deficiency: Code(s): E55.9 - Vitamin D deficiency, unspecified (4) Paresthesias: Code(s): R20.2 - Paresthesia of skin (5) Lipid disorder: Code(s): E78.9 - Disorder of lipoprotein metabolism, unspecified (6) Tobacco use: Code(s): Z72.0 - Tobacco use (7) Alcoholism: Comment: CONSEQUENCES OF DRINKING PROBLEMS There are a number of serious consequences of drinking alcohol excessively -------Excessive alcohol consumption is a leading preventable cause of in the [place]. --------Drinking alcohol increases the risk of traffic accidents, suicide, drowning, and other serious injuries. -------Alcohol use continues to be the leading cause of injuries treated in trauma centers and emergency departments . --------Alcohol-related liver disease may lead to end-stage liver disease (cirrhosis) and . --------Alcohol increases the risk of certain cancers of the mouth, esophagus, throat, liver, and breast. Code(s): F10.20 - Alcohol dependence, uncomplicated (8) B12 deficiency: Code(s): E53.8 - Deficiency of other specified B group vitamins (9) Elevated fasting blood sugar: Code(s): R73.01 - Impaired fasting glucose (10) Osteoarthritis of knees, bilateral: Code(s): M17.0 - Bilateral primary osteoarthritis of knee Qualifiers: Osteoarthritis type: primary Qualified Code(s): M17.0 - Bilateral primary osteoarthritis of knee (11) Heartburn: Code(s): R12 - Heartburn Plan Patient is 62-year-old female came in today for her follow-up appointment Complaining of epigastric discomfort off and on more so after eating Requesting PPI prescription which I have sent for since patient also drink alcohol she is to start taking that 2 times a day 12 hours apart Hypothyroidism her thyroid medication was adjusted to 75 mcg, labs were done in May showed slightly low TSH but normal free T4 For now we will continue with 75 mcg, patient will repeat labs again before next visit Patient continued to smoke and continue to drink trying to cut down She has neuropathy in her feet, most likely secondary to chronic alcohol abuse She is taking all her medications.? Hypertension:? Patient is on amlodipine 5 mg and irbesartan 75 mg, blood pressure is controlled ? Depression is stable with fluoxetine 20 mg She is also on atorvastatin 10 mg daily for lipid control.? Severe osteoarthritis knees:? Taking meloxicam 7.5 mg as needed only with food patient is aware of side effects Follow-up 3 months Orders: Orders Complete Blood Count Auto Diff 2 Months E55.9 - Vitamin D deficiency, unspeci fied, E78.9 - Disorder of lipoprotein metabolism, unspecified, F33.42 - Major depressive disorder, recurrent, in full remission, I10 - Essential (primary) hypertension, R20.2 - Paresthesia of skin Comprehensive Met. Panel 2 Months E55.9 - Vitamin D deficiency, unspecified, E78.9 - Disorder of lipoprotein metabolism, unspecified, F33.42 - Major depressive disorder, recurrent, in full remission, I10 - Essential (primary) hypertension, R20.2 - Paresthesia of skin TSH reflex Free T4 2 Months E55.9 - Vitamin D deficiency, unspecified, E78.9 - Disorder of lipoprotein metabolism, unspecified, F33.42 - Major depressive disorder, recurrent, in full remission, I10 - Essential (primary) hypertension, R20.2 - Paresthesia of skin Medications: New omeprazole 20 mg PO BID 180 caps 0RF 90 days Refilled amlodipine 5 mg PO DAILY 90 tabs 3RF 90 days I10 - Essential (primary) hypertension Coding Level of Care Code Est Pt Level 4 (84253) Complex EM visit Add On G2211 Diagnoses Hypertension, essential I10 Recurrent major depressive disorder, in full remission F33.42 Active/Remission status: in full remission Vitamin D deficiency E55.9 Paresthesias R20.2 Lipid disorder E78.9 Tobacco use Z72.0 Alcoholism F10.20 B12 deficiency E53.8 Elevated fasting blood sugar R73.01 Primary osteoarthritis of both knees M17.0 Osteoarthritis type: primary Heartburn R12
== END 2023-08-27 14:01 | disposition home or self-care (01) ==
LOC: HO.HMGC 13:43
PROVIDERS: PCP Internal Medicine; Visit Provider Internal Medicine
DX: I10 Essential (primary) hypertension (principal); F33.42 Major depressive disorder, recurrent, in full remission; F10.20 Alcohol dependence, uncomplicated; E55.9 Vitamin D deficiency, unspecified; R20.2 Paresthesia of skin; E78.9 Disorder of lipoprotein metabolism, unspecified; Z72.0 Tobacco use; E53.8 Deficiency of other specified B group vitamins; R73.01 Impaired fasting glucose; M17.0 Bilateral primary osteoarthritis of knee; R12 Heartburn
CPT/HCPCS: 99214; G2211

== ENCOUNTER 2023-12-02 09:11 | Outpatient (AMB) | payer MEDICARE, MEDICAID, SELFPAY ==
[2023-12-02 09:12] VITALS: BP 132/84; PULSE 86; O2SAT 96; BMI 26.7
--- NOTE | 2023-12-02 09:12 | MHC.PC.OV ---
Vital Signs 12/02/23 09:12 Height 5 ft 5 in Weight 160 lb 8 oz BMI 26.7 BP 132/84 Blood Pressure Location Lt brachial Position Sitting Pulse 86 Pulse Source Pulse Oximeter Pulse Oximetry (%) 96 Oxygen Delivery Method Room Air Intake Visit Reasons: Follow Up Allergies No Known Allergies [No Known Allergies*] Allergy (Verified 12/02/23 09:13) Medication List - Last Reconciled 12/02/23 by Nancy Houston MD amlodipine 5 mg PO DAILY 90 days atorvastatin 10 mg PO DAILY 90 days diclofenac sodium 3% 1 appl topical BID 30 days fluoxetine 20 mg PO DAILY 90 days ibuprofen 800 mg PO TID PRN irbesartan 75 mg PO DAILY 90 days levothyroxine 75 mcg PO DAILY 90 days omeprazole 20 mg PO BID 90 days Tobacco use date assessed: 12/02/23 Fall risk assessment: No Falls in past year Last assessed Fall Risk: 12/02/23 Dental Screening Dental Screen Date: 12/02/23 Did you have a dental visit in the last 12 months?: No Did you have a dental problem in the last 6 months where you did not have access to dental care?: No Was dental information given to patient?: Patient has dentist HPI Follow Up HPI Details Patient is 62-year-old female came in today for her follow-up appointment Complaining of pain left upper arm for the past 2 weeks On examination she is able to raise her arm with some soreness in that area Palpation of shoulder joint does not cause any pain, elbow has full range of motion We did the EKG today which shows possible left atrial enlargement nonspecific ST, T wave abnormalities, her QT interval is prolonged I have ordered echocardiogram for the patient She also would like to go for colonoscopy, referral placed she has never had 1 Labs were ordered last visit which patient forgot to do Reminded to do them today Hypothyroidism : Patient is on levothyroxine 75 mcg, due for TSH check Patient continued to smoke and continue to drink trying to cut down She has neuropathy in her feet, most likely secondary to chronic alcohol abuse She is taking all her medications.? Hypertension:? Patient is on amlodipine 5 mg and irbesartan 75 mg, blood pressure is controlled ? Depression is stable with fluoxetine 20 mg, however due to prolonged QT interval I have stopped fluoxetine Patient will start taking buspirone 10 mg up to 3 times a day as needed for anxiety She is also on atorvastatin 10 mg daily for lipid control.? Severe osteoarthritis knees:? Taking meloxicam 7.5 mg as needed only with food patient is aware of side effects Follow-up 3 months [facility] Medical History High blood pressure High blood cholesterol Surgical History No pertinent past surgical history Family History Other Mental health disorder Social History Housing: Other Alcohol intake: never Patient Tobacco Use Status: Current everyday Tobacco user Cigarettes Per Day: 3 Years Smoked: 40 years e-Cigarette/Vaping Use: Never Used service: No Current occupational status: disabled Cognitive needs: No Hearing needs: No Vision needs: No Questionnaire Thrive Questionnaire Date Thrive assessed: 08/27/23 THRIVE Score: 0 AUDIT C Alcohol Use Questionnaire (AUDIT-C) 1. How often do you have a drink containing alcohol?: Never 3. How often do you have six or more drinks on one occasion?: Never Total Score: 0 Score Reviewed/Action Taken: Yes RAAD-7 AMB Questionnaire RAAD-7 Date RAAD - 7 assessed: 05/27/23 Source: Developed by Drs. Damien Carias, Suyapa Gee, Reggie Jaeger and colleagues, with an educational shimon from [employer]. Review of Systems Const Denies chills and Denies fever(s) ENT Denies epistaxis and Denies nasal discharge Card Denies chest pain Resp Denies chest congestion, Denies cough and Denies hemoptysis GI Denies diarrhea and Denies nausea Skin/Breast Denies rash Neuro Reports no additional complaints Psych Reports no additional complaints Endo Reports no additional complaints Physical exam (Primary Care) Vital Signs: Last Vital Signs Pulse 86 12/02/23 09:12 BP 132/84 12/02/23 09:12 Pulse Ox 96 12/02/23 09:12 Oxygen Delivery Method Room Air 12/02/23 09:12 BMI result Body Mass Index 26.7 Tobacco/Smoking Status: Tobacco use Status Tobacco use date assessed 12/02/23 12/02/23 09:20 Patient Tobacco Use Status Current everyday Tobacco 12/02/23 09:13 e-Cigarette/Vaping Use Never Used 12/02/23 09:13 Thrive Assessment: Date of Thrive Assessment Date Thrive assessed 08/27/23 12/02/23 09:13 Const General: cooperative, comfortable and no acute distress Orientation/consciousness: patient oriented x3 HENMT Head: Yes normocephalic Eyes General: appearance normal, both eyes and all related structures Neck Neck: Yes supple Resp Effort & Inspection: normal respiratory effort, no cough and no stridor Cardio Rhythm: regular rhythm Heart sounds: S1 normal heart sound present and S2 normal heart sound present Skin General skin exam: turgor normal Neuro General: patient oriented x3, tone normal and moves all extremities Extrem Right lower extremity: no edema Left lower extremity: no edema Office Procedures EKG [id number], Complete Assessment and Plan Assessment & Plan (1) Prolonged QT interval: Code(s): R94.31 - Abnormal electrocardiogram [ECG] [EKG] (2) Abnormal EKG: Code(s): R94.31 - Abnormal electrocardiogram [ECG] [EKG] (3) Left arm pain: Code(s): M79.602 - Pain in left arm (4) Hypertension, essential: Code(s): I10 - Essential (primary) hypertension (5) Depression, major, recurrent: Code(s): F33.9 - Major depressive disorder, recurrent, unspecified Qualifiers: Active/Remission status: in full remission Qualified Code(s): F33.42 - Major depressive disorder, recurrent, in full remission (6) Vitamin D deficiency: Code(s): E55.9 - Vitamin D deficiency, unspecified (7) Paresthesias: Code(s): R20.2 - Paresthesia of skin (8) Lipid disorder: Code(s): E78.9 - Disorder of lipoprotein metabolism, unspecified (9) Tobacco use: Code(s): Z72.0 - Tobacco use (10) Alcoholism: Comment: CONSEQUENCES OF DRINKING PROBLEMS There are a number of serious consequences of drinking alcohol excessively -------Excessive alcohol consumption is a leading preventable cause of in the [place]. --------Drinking alcohol increases the risk of traffic accidents, suicide, drowning, and other serious injuries. -------Alcohol use continues to be the leading cause of injuries treated in trauma centers and emergency departments . --------Alcohol-related liver disease may lead to end-stage liver disease (cirrhosis) and . --------Alcohol increases the risk of certain cancers of the mouth, esophagus, throat, liver, and breast. Code(s): F10.20 - Alcohol dependence, uncomplicated (11) B12 deficiency: Code(s): E53.8 - Deficiency of other specified B group vitamins (12) Elevated fasting blood sugar: Code(s): R73.01 - Impaired fasting glucose (13) Osteoarthritis of knees, bilateral: Code(s): M17.0 - Bilateral primary osteoarthritis of knee Qualifiers: Osteoarthritis type: primary Qualified Code(s): M17.0 - Bilateral primary osteoarthritis of knee (14) Heartburn: Code(s): R12 - Heartburn (15) Colon cancer screening: Code(s): Z12.11 - Encounter for screening for malignant neoplasm of colon Plan Patient is 62-year-old female came in today for her follow-up appointment Complaining of pain left upper arm for the past 2 weeks On examination she is able to raise her arm with some soreness in that area Palpation of shoulder joint does not cause any pain, elbow has full range of motion We did the EKG today which shows possible left atrial enlargement nonspecific ST, T wave abnormalities, her QT interval is prolonged I have ordered echocardiogram for the patient She also would like to go for colonoscopy, referral placed she has never had 1 Labs were ordered last visit which patient forgot to do Reminded to do them today Hypothyroidism : Patient is on levothyroxine 75 mcg, due for TSH check Patient continued to smoke and continue to drink trying to cut down She has neuropathy in her feet, most likely secondary to chronic alcohol abuse She is taking all her medications.? Hypertension:? Patient is on amlodipine 5 mg and irbesartan 75 mg, blood pressure is controlled ? Depression is stable with fluoxetine 20 mg, however due to prolonged QT interval I have stopped fluoxetine Patient will start taking buspirone 10 mg up to 3 times a day as needed for anxiety She is also on atorvastatin 10 mg daily for lipid control.? Severe osteoarthritis knees:? Taking meloxicam 7.5 mg as needed only with food patient is aware of side effects Follow-up 3 months 46 minutes spent in care of this patient Orders: Orders CA echo transthoracic complete Today R94.31 - Abnormal electrocardiogram [ECG] [EKG] AMB EKG-In Office Today M79.602 - Pain in left arm Referrals Gastroenterology Referral Z12.11 - Encounter for screening for malignant neoplasm of colon Medications: New buspirone 10 mg PO TID 30 days 90 tabs 2RF Anxiety Discontinued fluoxetine Discontinued Reason: Doctor's Order 20 mg PO DAILY 90 days 90 caps 0RF F33.9 - Major depressive disorder, recurrent, unspecified Coding Level of Care Code Est Pt Level 5 (22953) Complex EM visit Add On G2211 Diagnoses Prolonged QT interval R94.31 Abnormal EKG R94.31 Left arm pain M79.602 Hypertension, essential I10 Recurrent major depressive disorder, in full remission F33.42 Active/Remission status: in full remission Vitamin D deficiency E55.9 Paresthesias R20.2 Lipid disorder E78.9 Tobacco use Z72.0 Alcoholism F10.20 B12 deficiency E53.8 Elevated fasting blood sugar R73.01 Primary osteoarthritis of both knees M17.0 Osteoarthritis type: primary Heartburn R12 Colon cancer screening Z12.11 CPT Codes EKG - CPT: 42144-[id number], Complete ([id number])
== END 2023-12-02 10:05 | disposition home or self-care (01) ==
PROVIDERS: PCP Internal Medicine; Visit Provider Internal Medicine
DX: R94.31 Abnormal electrocardiogram [ECG] [EKG] (principal); M79.602 Pain in left arm; I10 Essential (primary) hypertension; F33.42 Major depressive disorder, recurrent, in full remission; E55.9 Vitamin D deficiency, unspecified; R20.2 Paresthesia of skin; E78.9 Disorder of lipoprotein metabolism, unspecified; Z72.0 Tobacco use; F10.20 Alcohol dependence, uncomplicated; E53.8 Deficiency of other specified B group vitamins; R73.01 Impaired fasting glucose; M17.0 Bilateral primary osteoarthritis of knee; R12 Heartburn; Z12.11 Encounter for screening for malignant neoplasm of colon
CPT/HCPCS: 93000; 99215

== ENCOUNTER 2023-12-02 09:46 | Outpatient (REF) | payer MEDICARE, MEDICAID, SELFPAY ==
[2023-12-02 13:26] LABS: MANUAL DIFF FLAG NO
[2023-12-02 13:32] LABS: Basophils Absolute Auto 0.1 X10*3/uL (0.0-0.2); Basophils Percent Auto 0.6 % (0-2); Eosinophils Absolute Auto 0.1 X10*3/uL (0.0-0.4); Eosinophils Percent Auto 0.9 % (0-4); Hemoglobin 14.5 g/dl (12.0-16.0); Imm Gran Abs Auto 0.05 X10*3/uL (0.00-0.03); Imm Gran Pct Auto 0.5 % (0.0-0.4); Lymphocytes Absolute Auto 2.2 X10*3/uL (1.2-4.9); Lymphocytes Percent Auto 21.2 % (20-40); Mean Corpuscular HGB Conc 35.4 g/dl (31.0-35.0); Mean Platelet Volume 9.5 fL (9.4-12.3); Monocytes Absolute Auto 0.5 X10*3/uL (0.1-1.2); Monocytes Percent Auto 4.8 % (2-11); Neutrophils Absolute Auto 7.3 x10*3/uL (2.0-8.3); Platelet Count 300 X10*3/uL (160-400); Red Blood Count 4.27 X10*6/uL (4.20-5.50); Red Cell Distribution Width 12.8 % (11.0-16.0); White Blood Count 10.2 X10*3/uL (4.8-10.8)
[2023-12-02 14:00] LABS: Alanine Aminotransferase 15 U/L (0-31); Albumin Level 3.8 g/dL (3.5-5.0); Alkaline Phosphatase 95 U/L (39-117); Anion Gap 16 (12-20); Aspartate Amino Transferase 30 U/L (5-31); Bilirubin Total 0.8 mg/dL (0.0-1.0); Blood Urea Nitrogen 4 mg/dL (9-16); Calcium 9.3 mg/dL (8.4-10.2); Carbon Dioxide 27 mmol/L (22-29); Chloride 99 mmol/L (96-108); Estimated Glomerular Filt Rate > 60; Glucose Random 99 mg/dL (60-115); Potassium 2.9 mmol/L (3.3-5.1); Sodium 139 mmol/L (135-145); Total Protein 7.1 g/dL (6.5-8.0)
[2023-12-02 14:07] LABS: TSH reflex Free T4 0.54 uIU/mL (0.32-4.0)
== END 2023-12-02 09:47 | disposition home or self-care (01) ==
LOC: HO.HMGCLDS 09:46
PROVIDERS: PCP Internal Medicine; Visit Provider Internal Medicine
DX: I10 Essential (primary) hypertension (principal); F33.42 Major depressive disorder, recurrent, in full remission; E55.9 Vitamin D deficiency, unspecified; R20.2 Paresthesia of skin; E78.9 Disorder of lipoprotein metabolism, unspecified
CPT/HCPCS: 36415; 80053; 84443; 85025

== ENCOUNTER 2023-12-03 10:38 | Emergency (ER) | payer MEDICARE, MEDICAID, SELFPAY ==
[2023-12-03 10:41] VITALS: BP 176/83; PULSE 77; RESP 19; TEMP 36.6; O2SAT 99; BMI 26.6
--- NOTE | 2023-12-03 10:45 | ECG_ITS ---
Test Reason : LOW K Blood Pressure : / mmHG Vent. Rate : 078 BPM Atrial Rate : 078 BPM P-R Int : 136 ms QRS Dur : 072 ms QT Int : 438 ms P-R-T Axes : 059 017 036 degrees QTc Int : 499 ms Normal sinus rhythm Low voltage QRS Nonspecific T wave abnormality Prolonged QT Abnormal ECG When compared with ECG of 21-SEP-2018 22:19, Inverted T waves have replaced nonspecific T wave abnormality in Inferior leads T wave inversion now evident in Anterior leads QT has lengthened Referred By: Generic ED Physician Electronically Signed By:MILTON CRAIN
[2023-12-03 11:14] LABS: MANUAL DIFF FLAG NO
[2023-12-03 11:18] LABS: Basophils Absolute Auto 0.1 X10*3/uL (0.0-0.2); Basophils Percent Auto 0.8 % (0-2); Eosinophils Absolute Auto 0.1 X10*3/uL (0.0-0.4); Eosinophils Percent Auto 0.7 % (0-4); Hematocrit 40.1 % (37.0-47.0); Hemoglobin 14.4 g/dl (12.0-16.0); Imm Gran Abs Auto 0.04 X10*3/uL (0.00-0.03); Imm Gran Pct Auto 0.5 % (0.0-0.4); Lymphocytes Absolute Auto 2.1 X10*3/uL (1.2-4.9); Lymphocytes Percent Auto 23.7 % (20-40); Mean Corpuscular HGB Conc 35.9 g/dl (31.0-35.0); Mean Corpuscular Volume 94.8 fL (80.0-98.0); Mean Platelet Volume 8.8 fL (9.4-12.3); Monocytes Absolute Auto 0.6 X10*3/uL (0.1-1.2); Monocytes Percent Auto 6.3 % (2-11); Neutrophils Absolute Auto 5.9 x10*3/uL (2.0-8.3); Platelet Count 277 X10*3/uL (160-400); Red Blood Count 4.23 X10*6/uL (4.20-5.50); Red Cell Distribution Width 12.7 % (11.0-16.0); White Blood Count 8.7 X10*3/uL (4.8-10.8)
[2023-12-03 11:37] LABS: Anion Gap 15 (12-20); Blood Urea Nitrogen 5 mg/dL (9-16); Calcium 9.2 mg/dL (8.4-10.2); Carbon Dioxide 26 mmol/L (22-29); Chloride 100 mmol/L (96-108); Creatinine Clr Calc Pharmacy 87.5; Estimated Glomerular Filt Rate > 60; Glucose Random 102 mg/dL (60-115); Sodium 138 mmol/L (135-145)
[2023-12-03 11:40] LABS: Potassium 2.9 mmol/L (3.3-5.1)
[2023-12-03 14:09] LABS: Magnesium 1.8 mg/dL (1.6-2.6)
[2023-12-03] MEDS: Potassium Chloride Packet 20 MEQ PACKET 40 MEQ PO (14:38)
[2023-12-03] MEDS: Potassium Chloride/H20 10 MEQ/100 ML PIGGYBACK 100 MEQ IV (14:40)
[2023-12-03 15:09] VITALS: BP 165/88; PULSE 83; RESP 19; TEMP 36.2; O2SAT 98
[2023-12-03 17:45] LABS: Anion Gap 11 (12-20); Blood Urea Nitrogen 5 mg/dL (9-16); Calcium 9.2 mg/dL (8.4-10.2); Carbon Dioxide 31 mmol/L (22-29); Chloride 100 mmol/L (96-108); Creatinine Clr Calc Pharmacy 83.6; Estimated Glomerular Filt Rate > 60; Glucose Random 92 mg/dL (60-115); Potassium 3.6 mmol/L (3.3-5.1); Sodium 138 mmol/L (135-145)
--- NOTE | 2023-12-03 18:34 | ED.GENADULT ---
HPI - General Adult General Chief complaint: Recheck/Abnormal Lab/Rx Stated complaint: low potassium-dr sent Time Seen by Provider: 12/03/23 14:01 Source: patient History of Present Illness ED Provider: Ahsan Related Data Previous Rx's ?Medication ?Instructions ?Recorded diclofenac sodium 3 % topical gel 1 appl topical BID 30 days #100 07/12/22 grams ibuprofen 800 mg tablet 800 mg PO TID PRN for pain #90 tabs 06/06/23 levothyroxine 75 mcg capsule 75 mcg PO DAILY 90 days #90 caps 08/21/23 amlodipine 5 mg tablet 5 mg PO DAILY 90 days #90 tabs 08/27/23 atorvastatin 10 mg tablet 10 mg PO DAILY 90 days #90 tabs 09/26/23 irbesartan 75 mg tablet 75 mg PO DAILY 90 days #90 tabs 09/26/23 omeprazole 20 mg capsule,delayed 20 mg PO BID 90 days #180 caps 11/20/23 release buspirone 10 mg tablet 10 mg PO TID Anxiety 30 days #90 12/02/23 tabs Allergies Allergy/AdvReac Type Severity Reaction Status Date / Time No Known Allergies Allergy Verified 12/03/23 10:43 [No Known Allergies*] [facility] Past Medical History Medical History High blood pressure High blood cholesterol Surgical History No pertinent past surgical history Family History Family History Other Mental health disorder Social History Social History Housing: Other Alcohol intake: never Patient Tobacco Use Status: Current everyday Tobacco user Cigarettes Per Day: 3 Years Smoked: 40 years e-Cigarette/Vaping Use: Never Used Advance Directives: No Do you have a plan to hurt others: No Plan service: No Current occupational status: disabled Cognitive needs: No Hearing needs: No Vision needs: No Physical Exam ED Vital Signs: Vital Signs - 24 hr 12/03/23 10:41 12/03/23 15:09 Temperature 98 F 97.2 F Pulse Rate 77 83 Respiratory Rate 19 19 Blood Pressure 176/83 H 165/88 H Pulse Oximetry 99 98 Oxygen Delivery Method Room Air Room Air BMI result Body Mass Index 26.6 Medications Administered Discontinued Medications Generic Name Dose Route Start Last Admin Trade Name Freq PRN Reason Stop Dose Admin Potassium Chloride 10 meq in 100 mls @ 100 mls/hr 12/03/23 14:06 12/03/23 16:19 Potassium Chloride/H20 IV 12/03/23 15:05 Infused ONCE ONE Infusion Potassium Chloride 40 meq 12/03/23 14:06 12/03/23 14:38 Potassium Chloride Packet 20 Meq Packet PO 12/03/23 14:07 40 meq ONCE ONE Administration Medical Decision Making Lab Data 12/03/23 11:10 12/03/23 17:27 Labs: Lab Results 12/03/23 12/03/23 Range/Units 11:10 17:27 WBC 8.7 (4.8-10.8) X10*3/uL RBC 4.23 (4.20-5.50) X10*6/uL Hgb 14.4 (12.0-16.0) g/dl Hct 40.1 (37.0-47.0) % MCV 94.8 (80.0-98.0) fL MCH 34.0 H (27.0-33.0) pg MCHC 35.9 H (31.0-35.0) g/dl RDW 12.7 (11.0-16.0) % Plt Count 277 (160-400) X10*3/uL MPV 8.8 L (9.4-12.3) fL Immature Gran % (Auto) 0.5 H (0.0-0.4) % Neut % (Auto) 68.0 (45-73) % Lymph % (Auto) 23.7 (20-40) % [place] % (Auto) 6.3 (2-11) % Eos % (Auto) 0.7 (0-4) % Baso % (Auto) 0.8 (0-2) % Lymph # (Auto) 2.1 (1.2-4.9) X10*3/uL [place] # (Auto) 0.6 (0.1-1.2) X10*3/uL Eos # (Auto) 0.1 (0.0-0.4) X10*3/uL Baso # (Auto) 0.1 (0.0-0.2) X10*3/uL Abs Immat Gran (auto) 0.04 H (0.00-0.03) X10*3/uL Absolute Neuts (auto) 5.9 (2.0-8.3) x10*3/uL Absolute Nucleated RBC 0.000 (0.0-0.012) X10*3/uL Nucleated RBC % (auto) 0.0 (0.0-0.2) /100WBC Sodium 138 138 (135-145) mmol/L Potassium 2.9 L* 3.6 D (3.3-5.1) mmol/L Chloride 100 100 (96-108) mmol/L Carbon Dioxide 26 31 H (22-29) mmol/L Anion Gap 15 11 L (12-20) BUN 5 L 5 L (9-16) mg/dL Creatinine 0.64 0.67 (0.5-1.4) mg/dL Estim Creat Clear Calc 87.5 83.6 Estimated GFR > 60 > 60 Random Glucose 102 92 (60-115) mg/dL Calcium 9.2 9.2 (8.4-10.2) mg/dL Magnesium 1.8 (1.6-2.6) mg/dL Discharge Plan Discharge Clinical Impression: Acute hypokalemia Patient Disposition: Home, Self-Care Instructions: Hypokalemia (ED) Additional Instructions: Please follow up with your PCP for repeat blood work in 3-5days Prescriptions: No Action ibuprofen 800 mg tablet 800 mg PO TID PRN (Reason: for pain) Qty: 90 3RF atorvastatin 10 mg tablet 10 mg PO DAILY 90 Days Qty: 90 0RF irbesartan 75 mg tablet 75 mg PO DAILY 90 Days Qty: 90 0RF omeprazole 20 mg capsule,delayed release(DR/EC) 20 mg PO BID 90 Days Qty: 180 0RF amlodipine 5 mg tablet 5 mg PO DAILY 90 Days Qty: 90 3RF diclofenac sodium 3 % gel 1 appl topical BID 30 Days Qty: 100 2RF levothyroxine 75 mcg capsule 75 mcg PO DAILY 90 Days Qty: 90 1RF buspirone 10 mg tablet 10 mg PO TID 30 Days Qty: 90 2RF Print Language: [place]
--- NOTE | 2023-12-03 18:37 | ED_ITS ---
HPI - General Adult General Chief complaint: Recheck/Abnormal Lab/Rx Stated complaint: low potassium-dr sent Time Seen by Provider: 12/03/23 14:01 Source: patient History of Present Illness ED Provider: Ahsan BESS narrative: 63-year-old female with past medical history of vitamin-D deficiency, hypertension, alcoholism, tobacco use presenting for hypokalemia. Patient had routine lab work done yesterday at her PCP office was called today or hypokalemia. She was told to present to the ED. Patient has no complaints stating that she feels that she has baseline. She denies head pain, neck pain, chest pain, shortness of breath, abdominal pain, nausea, vomiting, urinary symptoms, diarrhea. Related Data Previous Rx's ?Medication ?Instructions ?Recorded diclofenac sodium 3 % topical gel 1 appl topical BID 30 days #100 07/12/22 grams ibuprofen 800 mg tablet 800 mg PO TID PRN for pain #90 tabs 06/06/23 levothyroxine 75 mcg capsule 75 mcg PO DAILY 90 days #90 caps 08/21/23 amlodipine 5 mg tablet 5 mg PO DAILY 90 days #90 tabs 08/27/23 atorvastatin 10 mg tablet 10 mg PO DAILY 90 days #90 tabs 09/26/23 irbesartan 75 mg tablet 75 mg PO DAILY 90 days #90 tabs 09/26/23 omeprazole 20 mg capsule,delayed 20 mg PO BID 90 days #180 caps 11/20/23 release buspirone 10 mg tablet 10 mg PO TID Anxiety 30 days #90 12/02/23 tabs Allergies Allergy/AdvReac Type Severity Reaction Status Date / Time No Known Allergies Allergy Verified 12/03/23 10:43 [No Known Allergies*] Review of Systems 2 Review of Systems: Patient denies head pain, chest pain, fevers, chills, nausea, vomiting, urinary, diarrhea [facility] Past Medical History Attestation statement: The following information was validated with the patient. [facility] Narrative: Hypertension, vitamin-D deficiency, alcoholism Medical History High blood pressure High blood cholesterol Surgical History No pertinent past surgical history Family History Family History Other Mental health disorder Social History Social History Housing: Other Alcohol intake: never Patient Tobacco Use Status: Current everyday Tobacco user Cigarettes Per Day: 3 Years Smoked: 40 years e-Cigarette/Vaping Use: Never Used Advance Directives: No Do you have a plan to hurt others: No Plan service: No Current occupational status: disabled Cognitive needs: No Hearing needs: No Vision needs: No Physical Exam ED Vital Signs: Vital Signs - 24 hr 12/03/23 10:41 12/03/23 15:09 12/03/23 18:41 Temperature 98 F 97.2 F 98.1 F Pulse Rate 77 83 86 Respiratory Rate 19 19 16 Blood Pressure 176/83 H 165/88 H 147/61 H Pulse Oximetry 99 98 98 Oxygen Delivery Method Room Air Room Air Room Air BMI result Body Mass Index 26.6 Head normocephalic atraumatic Lungs clear to auscultation bilaterally Normal S1-S2 regular rate rhythm Abdomen is soft nontender nondistended No focal neurologic deficit Medications Administered Discontinued Medications Generic Name Dose Route Start Last Admin Trade Name Freq PRN Reason Stop Dose Admin Potassium Chloride 10 meq in 100 mls @ 100 mls/hr 12/03/23 14:06 12/03/23 16:19 Potassium Chloride/H20 IV 12/03/23 15:05 Infused ONCE ONE Infusion Potassium Chloride 40 meq 12/03/23 14:06 12/03/23 14:38 Potassium Chloride Packet 20 Meq Packet PO 12/03/23 14:07 40 meq ONCE ONE Administration Medical Decision Making Medical Decision Making [facility] Narrative: Patient is presenting for hypokalemia. I have no concerns for underlying infection or cardiac complications Patient's EKG is unremarkable with no ST elevations or peaked T-waves. Patient does have prolonged QT however I do not think that this is a reason to admit her Patient's initial potassium is 2.9. I repleted her potassium and it is now 3.6 I instructed patient to follow up with her PCP in 3-5 days for repeat lab work. And I gave her return precautions Differential Diagnosis Differential Diagnoses: The differential diagnosis associated with the presentation includes Hypokalemia, electrolyte/metabolic disorder Lab Data [facility] Lab Attestation statement: I reviewed the patient's lab results. 2.9 potassium 12/03/23 11:10 12/03/23 17:27 Labs: Lab Results 12/03/23 12/03/23 Range/Units 11:10 17:27 WBC 8.7 (4.8-10.8) X10*3/uL RBC 4.23 (4.20-5.50) X10*6/uL Hgb 14.4 (12.0-16.0) g/dl Hct 40.1 (37.0-47.0) % MCV 94.8 (80.0-98.0) fL MCH 34.0 H (27.0-33.0) pg MCHC 35.9 H (31.0-35.0) g/dl RDW 12.7 (11.0-16.0) % Plt Count 277 (160-400) X10*3/uL MPV 8.8 L (9.4-12.3) fL Immature Gran % (Auto) 0.5 H (0.0-0.4) % Neut % (Auto) 68.0 (45-73) % Lymph % (Auto) 23.7 (20-40) % [place] % (Auto) 6.3 (2-11) % Eos % (Auto) 0.7 (0-4) % Baso % (Auto) 0.8 (0-2) % Lymph # (Auto) 2.1 (1.2-4.9) X10*3/uL [place] # (Auto) 0.6 (0.1-1.2) X10*3/uL Eos # (Auto) 0.1 (0.0-0.4) X10*3/uL Baso # (Auto) 0.1 (0.0-0.2) X10*3/uL Abs Immat Gran (auto) 0.04 H (0.00-0.03) X10*3/uL Absolute Neuts (auto) 5.9 (2.0-8.3) x10*3/uL Absolute Nucleated RBC 0.000 (0.0-0.012) X10*3/uL Nucleated RBC % (auto) 0.0 (0.0-0.2) /100WBC Sodium 138 138 (135-145) mmol/L Potassium 2.9 L* 3.6 D (3.3-5.1) mmol/L Chloride 100 100 (96-108) mmol/L Carbon Dioxide 26 31 H (22-29) mmol/L Anion Gap 15 11 L (12-20) BUN 5 L 5 L (9-16) mg/dL Creatinine 0.64 0.67 (0.5-1.4) mg/dL Estim Creat Clear Calc 87.5 83.6 Estimated GFR > 60 > 60 Random Glucose 102 92 (60-115) mg/dL Calcium 9.2 9.2 (8.4-10.2) mg/dL Magnesium 1.8 (1.6-2.6) mg/dL Discharge Plan Discharge Clinical Impression: Acute hypokalemia Patient Disposition: Home, Self-Care Instructions: Hypokalemia (ED) Additional Instructions: Please follow up with your PCP for repeat blood work in 3-5days Prescriptions: No Action ibuprofen 800 mg tablet 800 mg PO TID PRN (Reason: for pain) Qty: 90 3RF atorvastatin 10 mg tablet 10 mg PO DAILY 90 Days Qty: 90 0RF irbesartan 75 mg tablet 75 mg PO DAILY 90 Days Qty: 90 0RF omeprazole 20 mg capsule,delayed release(DR/EC) 20 mg PO BID 90 Days Qty: 180 0RF amlodipine 5 mg tablet 5 mg PO DAILY 90 Days Qty: 90 3RF diclofenac sodium 3 % gel 1 appl topical BID 30 Days Qty: 100 2RF levothyroxine 75 mcg capsule 75 mcg PO DAILY 90 Days Qty: 90 1RF buspirone 10 mg tablet 10 mg PO TID 30 Days Qty: 90 2RF Interventions: ED Discharge Assessment Last Done: 12/03/23 18:41 Discharge Date/Time: 12/03/23 18:42 Print Language: German
[2023-12-03 18:41] VITALS: BP 147/61; PULSE 86; RESP 16; TEMP 36.7; O2SAT 98
== END 2023-12-03 18:42 | disposition home or self-care (01) ==
PROVIDERS: Emergency Medicine; Physician Assistant Medical; Emergency Provider Student in an Organized Health Care Education/Training Program
DX: E87.6 Hypokalemia (principal); F17.210 Nicotine dependence, cigarettes, uncomplicated
CPT/HCPCS: 36415; 80048; 83735; 85025; 93005; 96365; 96366; 99284; J3480

== ENCOUNTER → 2024-01-12 14:43 | Outpatient (REF) | payer MEDICARE, MEDICAID, SELFPAY ==
--- NOTE | 2024-01-12 15:17 | CA_ITS ---
Transthoracic Echocardiogram Patient (Last, First, Middle): Magdalene Saenz, Gender: Female Date of : 1960 Age: 63 Procedure Date: 01/12/2024 Procedure Type: Transthoracic Echocardiogram Location: OP Height: 165.1 cm Weight: 74.84 kg BSA: 1.82 m2 Heart Rate: bpm BP: 120 / 80 mmHg Planning Technician: ABDIAS Referring MD: Nancy Houston MD Fermentation Scientist: Isidoro Urban MD Symptoms: R94.31 - Abnormal electrocardiogram [ECG] [EKG] Study Quality: Adequate ECG Rhythm: Sinus Conclusions: - Essentially normal study Findings Left Ventricle Normal left ventricular size, thickness, and systolic function. The visually estimated ejection fraction is between 60-65%. Spectral Doppler is indicative of a normal filling pattern. Right Ventricle Normal right ventricular cavity size and systolic function. Atria Both atria are normal in size. There is no evidence of interatrial shunt. Aortic Valve The aortic valve structure and function is likely normal. There is no aortic valve stenosis. There is no aortic valve regurgitation. Mitral Valve Normal mitral valve structure and function. There is trace mitral valve regurgitation. There is no mitral valve stenosis. Pulmonic Valve The pulmonic valve is likely normal. Tricuspid Valve Normal tricuspid valve structure. There is trace tricuspid valve regurgitation. The right ventricular systolic pressure is normal. The right ventricular systolic pressure is 28 mmHg. Normal right atrial pressure. There is no evidence of pulmonary hypertension. Great Vessels All visible segments of the aorta are normal in size. The pulmonary artery was not well visualized. There is no dilatation of the ascending aorta measuring 3.40 cm. Venous The inferior vena cava is normal in size and collapses greater than 50% with inspiration. Pericardium/Pleural There is no evidence of pericardial effusion. Prior Study Comparison No prior study available for comparison. Measurements 2D Linear Measurements IVSd: 0.83 0.6-0.9/0.6-1.0 cm LVIDd: 4.14 3.9-5.3/4.2-5.9 cm LVIDd Index: 2.27 2.4-3.2/2.2-3.1 cm/m2 LVIDs: 2.73 2.0-3.6 cm LVPWd: 0.80 0.7-1.1 cm LA Diam: 2.80 2.7-3.8/3.0-4.0 cm LAIDs Index: 1.54 1.5-2.3 cm/m2 LV Mass: 126.09 67-162/88-224 g LV Mass Index: 69.28 43-95/49-115 g/m2 LVOT Diam: 2.00 3.0+(-)1.3 cm 2D Systolic Function EF 4C: 60.40 >55% EF 2C: 65.40 >55% EF BiP: 63.60 >55% Mitral Valve MV Pk E: 0.83 MV PK A: 0.76 MV Decel Time: 240.00 E/A: 1.10 E'Lateral: 10.60 E'Medial: 7.29 E/E' Med: 11.30 E/E' Lat: 7.80 PHT: 70.00 MVA PHT: 3.14 Decel Marathon: 3.45 Aortic Valve AoV Pk Jose: 1.17 AoV Mn Jose: 0.83 AoV VTI: 0.26 AoV Pk Grad: 5.00 Aov Mn Grad: 3.00 RICHARD Cont.VTI: 2.28 LVOT LVOT Pk Jose: 0.93 LVOT Mn Jose: 0.60 LVOT VTI: 0.19 LVOT Pk Grad: 3.00 LVOT Mn Grad: 2.00 LVOT Diam: 2.00 LVOT Area: 3.14 Diastolic Function MV Pk E: 0.83 MV Pk A: 0.76 E/A: 1.10 E'Medial: 7.29 E/E' Med: 11.30 E' Laterial: 10.60 E/E' Lat: 7.80 Right Ventricle TAPSE (mm): 22.30 TVS' Jose: 12.20 Tricuspid Valve TR Pk Jose: 2.51 TR Pk Grad: 25.00 RA Press: 3.00 RVSP: 28.00 Great Vessels Aorta Sinus of Valsalva: 3.52 2.0-3.[address] [place]: 2.57 1.7-3.4 cm Ao Asc: 3.40 2.1-3.4 cm Updated in Other Vendor System with Status of Final Isidoro Urban MD electronically signed on 01/13/2024 10:53:47 AM with status of Final
== END ==
LOC: HO.CARD 14:43
PROVIDERS: PCP Internal Medicine; Visit Provider Internal Medicine
DX: R94.31 Abnormal electrocardiogram [ECG] [EKG] (principal)
CPT/HCPCS: 93306

== ENCOUNTER → 2024-01-12 15:17 | Outpatient (BNV) | payer MEDICARE, MEDICAID, SELFPAY | PROVIDERS: PCP Internal Medicine; Visit Provider Internal Medicine Cardiovascular Disease | DX: R94.31 Abnormal electrocardiogram [ECG] [EKG] (principal) | CPT/HCPCS: 93306 ==

== ENCOUNTER 2024-03-02 10:05 | Outpatient (AMB) | payer MEDICARE, MEDICAID, SELFPAY ==
[2024-03-02 10:19] VITALS: BP 132/80; PULSE 89; O2SAT 100; BMI 27.2
--- NOTE | 2024-03-02 10:19 | A.OFFPC_ITS ---
Vital Signs 03/02/24 10:19 Height 5 ft 5 in Weight 163 lb 6 oz BMI 27.2 BP 132/80 Blood Pressure Location Lt brachial Position Sitting Pulse 89 Pulse Source Pulse Oximeter Pulse Oximetry (%) 100 Oxygen Delivery Method Room Air Intake Visit Reasons: 3 fri/ Allergies No Known Allergies [No Known Allergies*] Allergy (Verified 03/02/24 10:19) Medication List - Last Reconciled 03/02/24 by Nancy Houston MD amlodipine 5 mg PO DAILY 90 days atorvastatin 10 mg PO DAILY 90 days buspirone 10 mg PO TID 30 days diclofenac sodium 3% 1 appl topical BID 30 days ibuprofen 800 mg PO TID PRN irbesartan 75 mg PO DAILY 90 days levothyroxine 75 mcg PO DAILY 90 days omeprazole 20 mg PO BID 90 days Tobacco use date assessed: 03/02/24 Fall risk assessment: No Falls in past year Last assessed Fall Risk: 03/02/24 Dental Screening Dental Screen Date: 03/02/24 Did you have a dental visit in the last 12 months?: Yes Did you have a dental problem in the last 6 months where you did not have access to dental care?: No Was dental information given to patient?: Patient has dentist HPI Fri/ HPI Details Chief Complaint Regular follow-up appointment Assessment and Plan 63-year-old female with a history of ess ential hypertension, hyperlipidemia, generalized anxiety disorder, hypothyroidism, and gastroesophageal reflux disease , tobacco abuse, alcoholism, presenting for a regular follow-up. The patient's hypertension currently appears controlled with a blood pressure of 132/80 mmHg and a pulse of 89 bpm. Thyroid function was slightly off according to recent lab tests, prompting a change in levothyroxine dosage, which the patient has yet to initiate. The patient's electrolyte and kidney function tests from November show normal results. Current medication regimen includes amlodipine, atorvastatin, buspirone, levothyroxine, and omeprazole. The patient reports no adverse effects from medications and no significant concerns about her medical conditions at present. Recent labs were unremarkable, but repeat labs are planned before the next follow-up. 1. Hyperlipidemia Continue atorvastatin 10 mg for lipid control. Encourage adherence to a heart- healthy diet and regular exercise. Blood lipid levels to be reassessed with next lab tests. 2. Hypothyroidism Levothyroxine dosage needs adjustment due to recent lab abnormalities. Patient instructed to start the new dosage of 75 mcg as prescribed as soon as possible. Retest thyroid function before the next visit. 3. Essential Hypertension Patient's blood pressure is adequately controlled on current medications. Continue amlodipine 5 mg daily. Monitor blood pressure regularly and advise the patient to maintain a diet low in sodium. 4. Gastroesophageal Reflux Disease Continue omeprazole regimen and reassess symptoms regularly. The patient is advised to avoid triggers such as certain foods and NSAIDs (specifically ibuprofen) and to use acetaminophen for pain relief if necessary. 5. Generalized Anxiety Disorder Continue buspirone 10 mg three times a day. Patient reports stable anxiety symptoms. Encourage non-pharmacological interventions such as lifestyle modifications and stress management techniques. 6. patient was instructed to stop drink ing alcohol as soon as possible, she is aware at toxic effects of alcoholism 7. Stop smoking Problem List - Essential Hypertension - Hyperlipidemia - Generalized Anxiety Disorder - Hypothyroidism - Gastroesophageal Reflux Disease - Alcoholism - Tobacco abuse Patient Instructions - Start the new dosage of levothyroxine as prescribed due to lab results indicating necessity. - Continue taking current medications as directed and monitor for any side effects. - Avoid using ibuprofen for pain; use ac etaminophen if necessary. - Have blood work done one to two days b efore the next scheduled follow-up. - Maintain regular follow-ups, with an a ppointment planned in three months. - Schedule a colonoscopy for screening a s previously arranged. - Maintain a heart-healthy diet and enga ge in regular physical activity as discussed. [facility] Medical History High blood pressure High blood cholesterol Surgical History No pertinent past surgical history Family History Other Mental health disorder Social History Housing: Other Alcohol intake: never Patient Tobacco Use Status: Current everyday Tobacco user Cigarettes Per Day: 3 Years Smoked: 40 years e-Cigarette/Vaping Use: Never Used service: No Current occupational status: disabled Cognitive needs: No Hearing needs: No Vision needs: No Questionnaire PHQ-9 Over the last 2 weeks, how often have you been bothered by any of the following problems? 1. Little interest or pleasure in doing things: several days 2. Feeling down, depressed, or hopeless: several days 3. Trouble falling or staying asleep, or sleeping too much: not at all 4. Feeling tired or having little energy: several days 5. Poor appetite or overeating: several days 6. Feeling bad about yourself - or that you are a failure or have let yourself or your family down: not at all 7. Trouble concentrating on things, such as reading the newspaper or watching television: not at all 8. Moving or speaking so slowly that other people could have noticed. Or the opposite - being so fidgety or restless that you have been moving around a lot more than usual: several days 9. Thoughts that you would be better off or of hurting yourself in some way: several days Total score: 6 Depression Screening Interpretation: Negative Depression Screening Done: Yes [id number] - PHQ-9 Billing: Yes Source: Developed by Drs. Damien Carias, Suyapa Gee, Reggie Jaeger and colleagues, with an educational shimon from [employer]. Thrive Questionnaire Date Thrive assessed: 03/02/24 I am a: Patient What is your living situation today?: I have a steady place to live Within the past 12 months, did the food you bought not last and you didn't have the money to get more?: Never true Within the past 12 months, did you worry whether your food would run out before you got money to buy more?: Never true Do you have trouble paying for medicines?: No Do you have trouble getting transportation to medical appointments?: No Do you have trouble paying your heating and electricity bill?: No Do you have trouble taking care of your child, family member or friend?: No Do you have trouble with day-to-day activities such as bathing, preparing meals, shopping, managing finances, etc.?: No Are you currently unemployed and looking for a job?: No Are you interested in more education?: No Please select the resources that you would like help with: None Currently or been in a relationship where the following occur: No concerns reported THRIVE Score: 0 AUDIT C Alcohol Use Questionnaire (AUDIT-C) 1. How often do you have a drink containing alcohol?: 4 or more times a week 2. How many drinks containing alcohol do you have on a typical day when you are drinking?: 3 or 4 3. How often do you have six or more drinks on one occasion?: Monthly Total Score: 7 Score Reviewed/Action Taken: Yes RAAD-7 AMB Questionnaire RAAD-7 Date RAAD - 7 assessed: 03/02/24 Feeling nervous, anxious, or on edge: 1 = Several days Not being able to stop or control worryin = Several days Worrying too much about different things: 1 = Several days Trouble relaxin = Not at all Being so restless that it is hard to sit still: 0 = Not at all Becoming easily annoyed or irritable: 2 = More than half the days Feeling afraid as if something awful might happen: 1 = Several days Total RAAD-7 score (0-4 normal; 5-9 mild; 10-14 moderate; 15-21 severe): 6 Source: Developed by Drs. Damien Carias, Suyapa Gee, Reggie Jaeger and colleagues, with an educational shimon from [employer]. RAAD-7 Assessment Billing RAAD-7 Assessment Tool: RAAD-7 Assessment 56198 Review of Systems Const Denies chills and Denies fever(s) ENT Denies epistaxis and Denies nasal discharge Card Denies chest pain Resp Denies chest congestion, Denies cough and Denies hemoptysis GI Denies diarrhea and Denies nausea Skin/Breast Denies rash Neuro Reports no additional complaints Psych Reports no additional complaints Endo Reports no additional complaints Physical exam (Primary Care) Vital Signs: Last Vital Signs Pulse 89 03/02/24 10:19 BP 132/80 03/02/24 10:19 Pulse Ox 100 03/02/24 10:19 Oxygen Delivery Method Room Air 03/02/24 10:19 BMI result Body Mass Index 27.2 Tobacco/Smoking Status: Tobacco use Status Tobacco use date assessed 03/02/24 03/02/24 10:21 Patient Tobacco Use Status Current everyday Tobacco 03/02/24 10:21 e-Cigarette/Vaping Use Never Used 03/02/24 10:21 PHQ-9: PHQ-9 Score PHQ-9: Total score 6 03/02/24 10:43 Depression Screening Interpretation: Negative Thrive Assessment: Date of Thrive Assessment Date Thrive assessed 03/02/24 03/02/24 10:21 Currently or been in a relationship where the following occur: No concerns reported Const General: cooperative, comfortable and no acute distress Orientation/consciousness: patient oriented x3 HENMT Head: Yes normocephalic Eyes General: appearance normal, both eyes and all related structures Neck Neck: Yes supple Resp Effort & Inspection: normal respiratory effort, no cough and no stridor Cardio Rhythm: regular rhythm Heart sounds: S1 normal heart sound present and S2 normal heart sound present Skin General skin exam: turgor normal Neuro General: patient oriented x3, tone normal and moves all extremities Extrem Right lower extremity: no edema Left lower extremity: no edema Coding Level of Care Code Est Pt Level 4 (67318) Complex EM visit Add On G2211 Diagnoses Hypertension, essential I10 Vitamin D deficiency E55.9 Recurrent major depressive disorder, in full remission F33.42 Active/Remission status: in full remission Paresthesias R20.2 Alcoholism F10.20 Lipid disorder E78.9 Elevated fasting blood sugar R73.01 Tobacco use Z72.0 B12 deficiency E53.8 Additional Codes RAAD-7 Assessment Billing - RAAD-7 Assessment Tool: RAAD-7 Assessment 54090 ([id number]) PHQ-9 - 00662 - PHQ-9 Billing: Yes ([id number]) Assessment & Plan Assessment & Plan (1) Hypertension, essential: Code(s): I10 - Essential (primary) hypertension Category: Medical (2) Vitamin D deficiency: Code(s): E55.9 - Vitamin D deficiency, unspecified Category: Medical (3) Depression, major, recurrent: Code(s): F33.9 - Major depressive disorder, recurrent, unspecified Category: Medical Qualifiers: Active/Remission status: in full remission Qualified Code(s): F33.42 - Major depressive disorder, recurrent, in full remission (4) Paresthesias: Code(s): R20.2 - Paresthesia of skin Category: Medical (5) Alcoholism: Comment: CONSEQUENCES OF DRINKING PROBLEMS There are a number of serious consequences of drinking alcohol excessively -------Excessive alcohol consumption is a leading preventable cause of in the [place]. --------Drinking alcohol increases the risk of traffic accidents, suicide, drowning, and other serious injuries. -------Alcohol use continues to be the leading cause of injuries treated in trauma centers and emergency departments . --------Alcohol-related liver disease may lead to end-stage liver disease (cirrhosis) and . --------Alcohol increases the risk of certain cancers of the mouth, esophagus, throat, liver, and breast. Code(s): F10.20 - Alcohol dependence, uncomplicated Category: Medical (6) Lipid disorder: Code(s): E78.9 - Disorder of lipoprotein metabolism, unspecified Category: Medical (7) Elevated fasting blood sugar: Code(s): R73.01 - Impaired fasting glucose Category: Medical (8) Tobacco use: Code(s): Z72.0 - Tobacco use Category: Social Hx (9) B12 deficiency: Code(s): E53.8 - Deficiency of other specified B group vitamins Category: Medical Plan Chief Complaint Regular follow-up appointment Assessment and Plan 63-year-old female with a history of essential hypertension, hyperlipidemia, generalized anxiety disorder, hypothyroidism, and gastroesophageal reflux disease , tobacco abuse, alcoholism, presenting for a regular follow-up. The patient's hypertension currently appears controlled with a blood pressure of 132/80 mmHg and a pulse of 89 bpm. Thyroid function was slightly off according to recent lab tests, prompting a change in levothyroxine dosage, which the patient has yet to initiate. The patient's electrolyte and kidney function tests from November show normal results. Current medication regimen includes amlodipine, atorvastatin, buspirone, levothyroxine, and omeprazole. The patient reports no adverse effects from medications and no significant concerns about her medical conditions at present. Recent labs were unremarkable, but repeat labs are planned before the next follow-up. 1. Hyperlipidemia Continue atorvastatin 10 mg for lipid control. Encourage adherence to a heart- healthy diet and regular exercise. Blood lipid levels to be reassessed with next lab tests. 2. Hypothyroidism Levothyroxine dosage needs adjustment due to recent lab abnormalities. Patient instructed to start the new dosage of 75 mcg as prescribed as soon as possible. Retest thyroid function before the next visit. 3. Essential Hypertension Patient's blood pressure is adequately controlled on current medications. Continue amlodipine 5 mg daily. Monitor blood pressure regularly and advise the patient to maintain a diet low in sodium. 4. Gastroesophageal Reflux Disease Continue omeprazole regimen and reassess symptoms regularly. The patient is advised to avoid triggers such as certain foods and NSAIDs (specifically ibuprofen) and to use acetaminophen for pain relief if necessary. 5. Generalized Anxiety Disorder Continue buspirone 10 mg three times a day. Patient reports stable anxiety symptoms. Encourage non-pharmacological interventions such as lifestyle modifications and stress management techniques. 6. patient was instructed to stop drinking alcohol as soon as possible, she is aware at toxic effects of alcoholism 7. Stop smoking Problem List - Essential Hypertension - Hyperlipidemia - Generalized Anxiety Disorder - Hypothyroidism - Gastroesophageal Reflux Disease - Alcoholism - Tobacco abuse Patient Instructions - Start the new dosage of levothyroxine as prescribed due to lab results indicating necessity. - Continue taking current medications as directed and monitor for any side effects. - Avoid using ibuprofen for pain; use acetaminophen if necessary. - Have blood work done one to two days before the next scheduled follow-up. - Maintain regular follow-ups, with an appointment planned in three months. - Schedule a colonoscopy for screening as previously arranged. - Maintain a heart-healthy diet and engage in regular physical activity as discussed. Orders: Orders TSH reflex Free T4 Today E53.8 - Deficiency of other specified B group vitamins, E55.9 - Vitamin D deficiency, unspecified, E78.9 - Disorder of lipoprotein metabolism, unspecified, F10.20 - Alcohol dependence, uncomplicated, F33.42 - Major depressive disorder, recurrent, in full remission, I10 - Essential (primary) hypertension, R20.2 - Paresthesia of skin, R73.01 - Impaired fasting glucose, Z72.0 - Tobacco use Vitamin D 25-OH (D2 and D3) Today E53.8 - Deficiency of other specified B group vitamins, E55.9 - Vitamin D deficiency, unspecified, E78.9 - Disorder of lipoprotein metabolism, unspecified, F10.20 - Alcohol dependence, uncomplicated, F33.42 - Major depressive disorder, recurrent, in full remission, I10 - Essential (primary) hypertension, R20.2 - Paresthesia of skin, R73.01 - Impaired fasting glucose, Z72.0 - Tobacco use Complete Blood Count Auto Diff Today E53.8 - Deficiency of other specified B group vitamins, E55.9 - Vitamin D deficiency, unspecified, E78.9 - Disorder of lipoprotein metabolism, unspecified, F10.20 - Alcohol dependence, uncomplicated, F33.42 - Major depressive disorder, recurrent, in full remission, I10 - Essential (primary) hypertension, R20.2 - Paresthesia of skin, R73.01 - Impaired fasting glucose, Z72.0 - Tobacco use Comprehensive Met. Panel Today E53.8 - Deficiency of other specified B group vitamins, E55.9 - Vitamin D deficiency, unspecified, E78.9 - Disorder of lipoprotein metabolism, unspecified, F10.20 - Alcohol dependence, uncomplicated, F33.42 - Major depressive disorder, recurrent, in full remission, I10 - Essential (primary) hypertension, R20.2 - Paresthesia of skin, R73.01 - Impaired fasting glucose, Z72.0 - Tobacco use LDL Cholesterol Direct Today E53.8 - Deficiency of other specified B group vitamins, E55.9 - Vitamin D deficiency, unspecified, E78.9 - Disorder of lipoprotein metabolism, unspecified, F10.20 - Alcohol dependence, uncomplicated, F33.42 - Major depressive disorder, recurrent, in full remission, I10 - Essential (primary) hypertension, R20.2 - Paresthesia of skin, R73.01 - Impaired fasting glucose, Z72.0 - Tobacco use Medications: Refilled omeprazole 20 mg PO BID 180 caps 0RF 90 days levothyroxine 75 mcg PO DAILY 90 caps 1RF 90 days irbesartan 75 mg PO DAILY 90 tabs 0RF 90 days buspirone 10 mg PO TID 90 tabs 2RF Anxiety 30 days amlodipine 5 mg PO DAILY 90 tabs 3RF 90 days I10 - Essential (primary) hypertension atorvastatin 10 mg PO DAILY 90 tabs 0RF 90 days E78.9 - Disorder of lipoprotein metabolism, unspecified Discontinued ibuprofen Discontinued Reason: Doctor's Order 800 mg PO TID PRN 90 tabs 3RF for pain
== END 2024-03-02 10:40 | disposition home or self-care (01) ==
PROVIDERS: Visit Provider Internal Medicine
DX: I10 Essential (primary) hypertension (principal); F33.42 Major depressive disorder, recurrent, in full remission; F10.20 Alcohol dependence, uncomplicated; E55.9 Vitamin D deficiency, unspecified; R20.2 Paresthesia of skin; E78.9 Disorder of lipoprotein metabolism, unspecified; R73.01 Impaired fasting glucose; Z72.0 Tobacco use; E53.8 Deficiency of other specified B group vitamins

== ENCOUNTER → 2024-03-02 10:05 | Outpatient (BNVA) | payer MEDICARE, MEDICAID, SELFPAY | PROVIDERS: Visit Provider Internal Medicine | DX: I10 Essential (primary) hypertension (principal); E55.9 Vitamin D deficiency, unspecified; F33.42 Major depressive disorder, recurrent, in full remission; R20.2 Paresthesia of skin; E78.9 Disorder of lipoprotein metabolism, unspecified; R73.01 Impaired fasting glucose; F10.20 Alcohol dependence, uncomplicated; E53.8 Deficiency of other specified B group vitamins; Z72.0 Tobacco use | CPT/HCPCS: 96127; 99212 ==

== ENCOUNTER → 2024-05-10 14:08 | Outpatient (BNVA) | payer MEDICARE, MEDICAID, SELFPAY | PROVIDERS: PCP Internal Medicine; Visit Provider Nurse Practitioner Family | DX: Z12.11 Encounter for screening for malignant neoplasm of colon (principal); K21.9 Gastro-esophageal reflux disease without esophagitis | CPT/HCPCS: 99202 ==

== ENCOUNTER 2024-06-01 12:47 | Outpatient (REF) | payer MEDICARE, MEDICAID, SELFPAY ==
--- OUTSIDE RECORDS SUMMARY | 2024-06-01 16:08 | XMS_ITS | Clinical Summary ---
Author Organization [facility] Address [address] [place] [address] Care Team Providers Care Lead Sql Developer Name Role Phone Nancy Houston MD Primary Care Provider [phone] Social History Tobacco Use Types Packs/Day Years [...] age to complete this topic Care Teams Lead Sql Developer Relationship Specialty Start Date End Date Nancy Houston MD [address] [facility] [place] [id number] PCP - General Internal Medicine 10/10/20
[2024-06-01 16:10] LABS: MANUAL DIFF FLAG NO
[2024-06-01 16:17] LABS: Basophils Absolute Auto 0.1 X10*3/uL (0.0-0.2); Eosinophils Absolute Auto 0.3 X10*3/uL (0.0-0.4); Eosinophils Percent Auto 3.3 % (0-4); Hematocrit 34.2 % (37.0-47.0); Hemoglobin 11.5 g/dl (12.0-16.0); Imm Gran Abs Auto 0.04 X10*3/uL (0.00-0.03); Imm Gran Pct Auto 0.4 % (0.0-0.4); Lymphocytes Absolute Auto 2.6 X10*3/uL (1.2-4.9); Lymphocytes Percent Auto 27.8 % (20-40); Mean Corpuscular HGB Conc 33.6 g/dl (31.0-35.0); Mean Corpuscular Hemoglobin 34.4 pg (27.0-33.0); Mean Corpuscular Volume 102.4 fL (80.0-98.0); Mean Platelet Volume 10.1 fL (9.4-12.3); Monocytes Absolute Auto 0.6 X10*3/uL (0.1-1.2); Neutrophils Absolute Auto 5.7 x10*3/uL (2.0-8.3); Neutrophils Percent Auto 61.5 % (45-73); Platelet Count 327 X10*3/uL (160-400); Red Blood Count 3.34 X10*6/uL (4.20-5.50); Red Cell Distribution Width 13.2 % (11.0-16.0); White Blood Count 9.3 X10*3/uL (4.8-10.8)
[2024-06-01 17:14] LABS: Alanine Aminotransferase 8 U/L (0-31); Albumin Level 4.3 g/dL (3.5-5.0); Alkaline Phosphatase 79 U/L (39-117); Anion Gap 14 (12-20); Aspartate Amino Transferase 26 U/L (5-31); Bilirubin Total 0.7 mg/dL (0.0-1.0); Blood Urea Nitrogen 7 mg/dL (9-16); Carbon Dioxide 26 mmol/L (22-29); Chloride 105 mmol/L (96-108); Estimated Glomerular Filt Rate > 60; Glucose Random 86 mg/dL (60-115); Potassium 3.2 mmol/L (3.3-5.1); Sodium 142 mmol/L (135-145); Total Protein 7.9 g/dL (6.5-8.0)
[2024-06-01 17:32] LABS: TSH reflex Free T4 0.95 uIU/mL (0.32-4.0)
[2024-06-02 15:08] LABS: LDL Cholesterol Direct 94 mg/dL (<100)
[2024-06-07 13:14] LABS: Vitamin D 25-OH, D2 <4 ng/mL; Vitamin D 25-OH, D3 26 ng/mL; Vitamin D 25-OH, Total 26 ng/mL (30-100)
== END 2024-06-01 12:48 | disposition home or self-care (01) ==
LOC: HO.HMGCLDS 12:47
PROVIDERS: PCP Internal Medicine; Visit Provider Internal Medicine
DX: I10 Essential (primary) hypertension (principal); E55.9 Vitamin D deficiency, unspecified; F33.42 Major depressive disorder, recurrent, in full remission; R20.2 Paresthesia of skin; F10.20 Alcohol dependence, uncomplicated; E78.5 Hyperlipidemia, unspecified; R73.01 Impaired fasting glucose; E53.8 Deficiency of other specified B group vitamins; E03.9 Hypothyroidism, unspecified; Z72.0 Tobacco use; Z79.899 Other long term (current) drug therapy
CPT/HCPCS: 36415; 80053; 82306; 83721; 84443; 85025; 96127; 99212

== ENCOUNTER 2024-06-01 12:47 | Outpatient (AMB) | payer MEDICARE, MEDICAID, SELFPAY ==
[2024-06-01 12:50] VITALS: BP 132/76; PULSE 100; O2SAT 95; BMI 26.1
--- NOTE | 2024-06-01 12:50 | A.OFFPC_ITS ---
Vital Signs 06/01/24 12:50 Height 5 ft 5 in Weight 157 lb BMI 26.1 BP 132/76 Blood Pressure Location Lt brachial Position Sitting Pulse 100 Pulse Source Pulse Oximeter Pulse Oximetry (%) 95 Oxygen Delivery Method Room Air Intake Visit Reasons: 3 fri/ Allergies No Known Allergies [No Known Allergies*] Allergy (Verified 06/01/24 12:50) Medication List - Last Reconciled 06/01/24 by Nancy Houston MD amlodipine 5 mg PO DAILY 90 days atorvastatin 10 mg PO DAILY 90 days bisacodyl (Dulcolax (bisacodyl)) 20 mg (4 x 5 mg) PO ONCE 1 day buspirone 10 mg PO TID 30 days diclofenac sodium 3% 1 appl topical BID 30 days irbesartan 75 mg PO DAILY 90 days levothyroxine 75 mcg PO DAILY 90 days omeprazole 20 mg PO BID 90 days polyethylene glycol 3350 (Miralax) 238 grams PO ONCE Tobacco use date assessed: 06/01/24 Fall risk assessment: No Falls in past year Last assessed Fall Risk: 06/01/24 Dental Screening Dental Screen Date: 06/01/24 Did you have a dental visit in the last 12 months?: Yes Did you have a dental problem in the last 6 months where you did not have access to dental care?: No Was dental information given to patient?: Patient has dentist HPI 3 fri HPI Details The patient is a 63-year-old female presenting for a medication review and prescription renewal. - medical history includes hypothyroidis m treated with levothyroxine, and she requires a renewal of this medication. - She has gastroesophageal reflux diseas e managed with omeprazole; she requested a prescription refill as it remains important for symptom control. - The patient has essential hypertension , confirmed to be well-managed on amlodipine 5 mg daily. And irbesartan 75 mg - Dyslipidemia is present, addressed wit h atorvastatin 10 mg. - The patient uses buspirone for anxiety control, taking it thrice daily. - continued to drink alcohol, tells me t hat her also drink and she has no plan to stop Problem List - Hypothyroidism - Gastroesophageal Reflux Disease (GERD) - Essential Hypertension - Dyslipidemia - Anxiety Disorder Patient Instructions - Continue taking all medications as pre scribed: levothyroxine, omeprazole, amlodipine, atorvastatin, irbesartan, and buspirone. - Attend the lab to complete blood work as previously ordered. - Follow up in early September or sooner if n ecessary. - Contact the office if you experience a ny new symptoms or have concerns about your medications. Review of Systems - General: No fever no chills - Neurological: No headaches no dizziness - Ear nose throat: No sore throat no hearing difficulty no ear pain - Cardiovascular: No syncope, no chest pain, no palpitations - Gastrointestinal: No nausea vomiting or diarrhea - Endocrine: No polyuria polydipsia no heat intolerance - Genitourinary: No dysuria , no blood in urine Physical Exam General: No acute distress HEENT: No acute findings Neck: Supple Respiratory system: Able to talk in full sentences, no audible wheeze cardiovascular: S1-S2 regular in rate and rhythm, blood pressure is very good and controlled Gastrointestinal: No pain Extremities: No new findings [employer]: Alert awake oriented x3 motor sensory intact Skin: Normal turgor [facility] Medical History GERD (gastroesophageal reflux disease) High blood pressure High blood cholesterol Surgical History No pertinent past surgical history Family History Mother Colon cancer S/P triple vessel bypass Father Prostate cancer Other Mental health disorder Social History Housing: Other Alcohol intake: current Alcohol intake frequency: a few times a week Comment: 1-2 drinks per day. Varies from hard liquor + beer. Patient Tobacco Use Status: Current everyday Tobacco user Cigarettes Per Day: 4 Years Smoked: 40 years Packs per year/per ci.00 e-Cigarette/Vaping Use: Never Used service: No Current occupational status: disabled Cognitive needs: No Hearing needs: No Vision needs: No Questionnaire PHQ-9 Over the last 2 weeks, how often have you been bothered by any of the following problems? 1. Little interest or pleasure in doing things: several days 2. Feeling down, depressed, or hopeless: several days 3. Trouble falling or staying asleep, or sleeping too much: several days 4. Feeling tired or having little energy: several days 5. Poor appetite or overeating: several days 6. Feeling bad about yourself - or that you are a failure or have let yourself or your family down: not at all 7. Trouble concentrating on things, such as reading the newspaper or watching television: not at all 8. Moving or speaking so slowly that other people could have noticed. Or the opposite - being so fidgety or restless that you have been moving around a lot more than usual: not at all 9. Thoughts that you would be better off or of hurting yourself in some way: several days Total score: 6 Depression Screening Interpretation: Negative Depression Screening Done: Yes 32202 - PHQ-9 Billing: Yes Source: Developed by Drs. Damien Carias, Suyapa Gee, Reggie Jaeger and colleagues, with an educational shimon from [employer]. Thrive Questionnaire Date Thrive assessed: 03/02/24 I am a: Patient What is your living situation today?: I have a steady place to live Within the past 12 months, did the food you bought not last and you didn't have the money to get more?: Never true Within the past 12 months, did you worry whether your food would run out before you got money to buy more?: Never true Do you have trouble paying for medicines?: No Do you have trouble getting transportation to medical appointments?: No Do you have trouble paying your heating and electricity bill?: No Do you have trouble taking care of your child, family member or friend?: No Do you have trouble with day-to-day activities such as bathing, preparing meals, shopping, managing finances, etc.?: No Are you currently unemployed and looking for a job?: No Are you interested in more education?: No Please select the resources that you would like help with: None Currently or been in a relationship where the following occur: Controlled Financially and Controlled Emotionally THRIVE Score: 2 AUDIT C Alcohol Use Questionnaire (AUDIT-C) 1. How often do you have a drink containing alcohol?: 4 or more times a week 2. How many drinks containing alcohol do you have on a typical day when you are drinking?: 3 or 4 3. How often do you have six or more drinks on one occasion?: Weekly Total Score: 8 Score Reviewed/Action Taken: Yes (Once again patient was reminded of toxic effect of alcohol) RAAD-7 AMB Questionnaire RAAD-7 Date RAAD - 7 assessed: 03/02/24 Feeling nervous, anxious, or on edge: 1 = Several days Not being able to stop or control worryin = Several days Worrying too much about different things: 1 = Several days Trouble relaxin = Several days Being so restless that it is hard to sit still: 0 = Not at all Becoming easily annoyed or irritable: 3 = Nearly every day Feeling afraid as if something awful might happen: 3 = Nearly every day Total RAAD-7 score (0-4 normal; 5-9 mild; 10-14 moderate; 15-21 severe): 10 Source: Developed by Drs. Damien Carias, Suyapa Gee, Reggie Jaeger and colleagues, with an educational shimon from [employer]. RAAD-7 Assessment Billing RAAD-7 Assessment Tool: RAAD-7 Assessment 60499 Physical exam (Primary Care) Vital Signs: Last Vital Signs Pulse 100 06/01/24 12:50 BP 132/76 06/01/24 12:50 Pulse Ox 95 06/01/24 12:50 Oxygen Delivery Method Room Air 06/01/24 12:50 BMI result Body Mass Index 26.1 Tobacco/Smoking Status: Tobacco use Status Tobacco use date assessed 06/01/24 06/01/24 12:56 Patient Tobacco Use Status Current everyday Tobacco 06/01/24 12:56 e-Cigarette/Vaping Use Never Used 06/01/24 12:56 Are you ready to quit: No Tobacco cessation counseling provided: Yes Relapse Prevention: discussed the importance of a supportive environment CPT code: 55128 - 4-10 Minutes PHQ-9: PHQ-9 Score PHQ-9: Total score 6 06/01/24 13:09 Depression Screening Interpretation: Negative Thrive Assessment: Date of Thrive Assessment Date Thrive assessed 03/02/24 06/01/24 12:56 Currently or been in a relationship where the following occur: Controlled Financially and Controlled Emotionally Coding Level of Care Code Est Pt Level 4 (10157) Complex EM visit Add On G2211 Diagnoses Hypertension, essential I10 Vitamin D deficiency E55.9 Recurrent major depressive disorder, in full remission F33.42 Active/Remission status: in full remission Paresthesias R20.2 Alcoholism F10.20 Lipid disorder E78.9 Elevated fasting blood sugar R73.01 Tobacco use Z72.0 B12 deficiency E53.8 Additional Codes RAAD-7 Assessment Billing - RAAD-7 Assessment Tool: RAAD-7 Assessment 34422 ([id number]) PHQ-9 - 62239 - PHQ-9 Billing: Yes ([id number]) Vital Signs *Quality* - CPT code: 23798 - 4-10 Minutes ([id number]) Assessment & Plan Assessment & Plan (1) Hypertension, essential: Code(s): I10 - Essential (primary) hypertension Category: Medical (2) Vitamin D deficiency: Code(s): E55.9 - Vitamin D deficiency, unspecified Category: Medical (3) Depression, major, recurrent: Code(s): F33.9 - Major depressive disorder, recurrent, unspecified Category: Medical Qualifiers: Active/Remission status: in full remission Qualified Code(s): F33.42 - Major depressive disorder, recurrent, in full remission (4) Paresthesias: Code(s): R20.2 - Paresthesia of skin Category: Medical (5) Alcoholism: Comment: CONSEQUENCES OF DRINKING PROBLEMS There are a number of serious consequences of drinking alcohol excessively -------Excessive alcohol consumption is a leading preventable cause of in the [place]. --------Drinking alcohol increases the risk of traffic accidents, suicide, drowning, and other serious injuries. -------Alcohol use continues to be the leading cause of injuries treated in trauma centers and emergency departments . --------Alcohol-related liver disease may lead to end-stage liver disease (cirrhosis) and . --------Alcohol increases the risk of certain cancers of the mouth, esophagus, throat, liver, and breast. Code(s): F10.20 - Alcohol dependence, uncomplicated Category: Medical (6) Lipid disorder: Code(s): E78.9 - Disorder of lipoprotein metabolism, unspecified Category: Medical (7) Elevated fasting blood sugar: Code(s): R73.01 - Impaired fasting glucose Category: Medical (8) Tobacco use: Code(s): Z72.0 - Tobacco use Category: Social Hx (9) B12 deficiency: Code(s): E53.8 - Deficiency of other specified B group vitamins Category: Medical Plan The patient is a 63-year-old female presenting for a medication review and prescription renewal. - medical history includes hypothyroidism treated with levothyroxine, and she requires a renewal of this medication. - She has gastroesophageal reflux disease managed with omeprazole; she requested a prescription refill as it remains important for symptom control. - The patient has essential hypertension, confirmed to be well-managed on amlodipine 5 mg daily. And irbesartan 75 mg - Dyslipidemia is present, addressed with atorvastatin 10 mg. - The patient uses buspirone for anxiety control, taking it thrice daily. - continued to drink alcohol, tells me that her also drink and she has no plan to stop Problem List - Hypothyroidism - Gastroesophageal Reflux Disease (GERD) - Essential Hypertension - Dyslipidemia - Anxiety Disorder - alcohol abuse Patient Instructions - Continue taking all medications as prescribed: levothyroxine, omeprazole, amlodipine, atorvastatin, irbesartan, and buspirone. - Attend the lab to complete blood work as previously ordered. - Follow up in early September or sooner if necessary. - Contact the office if you experience any new symptoms or have concerns about your medications. Medications: Refilled buspirone 10 mg PO TID 90 tabs 2RF Anxiety 30 days levothyroxine 75 mcg PO DAILY 90 caps 1RF 90 days omeprazole 20 mg PO BID 180 caps 1RF 90 days amlodipine 5 mg PO DAILY 90 tabs 3RF 90 days I10 - Essential (primary) hypertension atorvastatin 10 mg PO DAILY 90 tabs 3RF 90 days E78.9 - Disorder of lipoprotein metabolism, unspecified diclofenac sodium 3% 1 appl topical BID 100 grams 2RF 30 days irbesartan 75 mg PO DAILY 90 tabs 1RF 90 days
--- OUTSIDE RECORDS SUMMARY | 2024-06-01 15:33 | XMS_ITS | Clinical Summary ---
Author Organization [facility]ly [facility] Address [address] [place] [address] Care Team Providers Care Cofounder Name Role Phone Nancy Houston MD Primary Care Provider [phone] Social History Tobacco Use Types Packs/Day Years Used Date Smoking Tobacco: Never Assessed Sex and Gender Information Value Date Recorded Sex Assigned at Not on file Gender Identity Not on file Sexual Orientation Not on file Plan of Treatment Health Maintenance Due Date Last Done Comments Hepatitis C Screening 1960 COVID-19 Vaccine (#1) 05/15/1959 Depression Screening 1970 Preventative Health Evaluation 1976 DTap / Tdap / Td (1 - Tdap) 1977 Cervical Cancer Screening (P ap Smear) 11/13/1979 Colon Cancer Screening (Colonoscopy) 11/13/2003 Breast Cancer Screening (Mammogram) 2008 Shingrix-Zoster Vaccine (1 of 2) 2008 Fall Risk Assessment 11/13/2023 Osteoporosis Screening (DEXA Scan) 11/13/2023 Pneumococcal Vaccine (1 of 1 - PCV) 11/13/2023 Influenza Vaccine (#1) 2023 RSV Adult > 60+ Yrs or Pregn ant (1 - 1-dose 75+ series) 2033 Hepatitis B Vaccines Aged Out No long er eligible based on patient's age to complete this topic Pneumococcal Vaccine Aged Out No long er eligible based on patient's age to complete this topic RSV Ped < 20 months Aged Out No longe r eligible based on patient's age to complete this topic Care Teams Cofounder Relationship Specialty Start Date End Date Nancy Houston MD [address] [facility] [place] [id number] PCP - General Internal Medicine 10/10/20
== END 2024-06-01 13:46 | disposition home or self-care (01) ==
PROVIDERS: PCP Internal Medicine; Visit Provider Internal Medicine
DX: I10 Essential (primary) hypertension (principal); E55.9 Vitamin D deficiency, unspecified; F33.42 Major depressive disorder, recurrent, in full remission; R20.2 Paresthesia of skin; F10.20 Alcohol dependence, uncomplicated; E78.9 Disorder of lipoprotein metabolism, unspecified; R73.01 Impaired fasting glucose; Z72.0 Tobacco use; E53.8 Deficiency of other specified B group vitamins

== ENCOUNTER 2024-09-14 14:49 | Outpatient (AMB) | payer MEDICARE, MEDICAID, SELFPAY ==
--- NOTE | 2024-09-14 14:52 | MHC.PC.OV ---
Vital Signs 09/14/24 14:54 Height 5 ft 5 in Weight 150 lb 4 oz BMI 25.0 BP 128/82 Blood Pressure Location Lt brachial Position Sitting Respiration 12 Pulse 83 Pulse Source Pulse Oximeter Temp 98.5 F Temp Source Oral Pulse Oximetry (%) 93 Oxygen Delivery Method Room Air Intake Visit Reasons: 3 month follow up Allergies No Known Allergies [No Known Allergies*] Allergy (Verified 09/14/24 14:54) Medication List - Last Reconciled 09/14/24 by Nancy Houston MD amlodipine 5 mg PO DAILY 90 days atorvastatin 10 mg PO DAILY 90 days bisacodyl (Dulcolax (bisacodyl)) 20 mg (4 x 5 mg) PO ONCE 1 day buspirone 10 mg PO TID 30 days diclofenac sodium 3% 1 appl topical BID 30 days irbesartan 75 mg PO DAILY 90 days levothyroxine 75 mcg PO DAILY 90 days levothyroxine 75 mcg PO DAILY omeprazole 20 mg PO BID 90 days Tobacco use date assessed: 09/14/24 Fall risk assessment: No Falls in past year Last assessed Fall Risk: 09/14/24 Dental Screening Dental Screen Date: 09/14/24 Did you have a dental visit in the last 12 months?: No Did you have a dental problem in the last 6 months where you did not have access to dental care?: No Was dental information given to patient?: Patient has dentist HPI 3 month follow up HPI Details History - The patient is a 63-year-old female presenting with anemia and constipation. - Anemia: Noted to have a drop in hemoglobin during a visit in May. Possible causes such as hemorrhoids or constipation-related blood loss were considered. - Constipation: The patient reports ongoing constipation. She has been unable to confirm receipt of Dulcolax. The constipation persists and contributes to her overall discomfort. - Hypokalemia: Potassium levels were noted to be low, possibly linked to alcohol consumption. - Vitamin D deficiency was also identified, and the patient is advised to take vitamin D supplements. Medical History: - Anxiety - Essential Hypertension - Hyperlipidemia - Hypothyroidism - Gastroesophageal Reflux Disease Medications: - Amlodipine 5 mg for hypertension - Atorvastatin for hyperlipidemia - Buspirone for anxiety - Levothyroxine for hypothyroidism - Omeprazole for gastroesophageal reflux disease Social History: - Alcohol consumption: The patient reports ongoing alcohol use with no desire to stop. Diagnostic Results: - Labs: Hemoglobin drop observed in May. Low potassium level. Problem List - Anemia - Constipation - Hypokalemia - Anxiety - Essential Hypertension - Hyperlipidemia - Hypothyroidism - Gastroesophageal Reflux Disease Patient Instructions - Take vitamin D supplements as recommended. - Ensure to complete a blood test today to monitor hemoglobin and potassium levels. - A prescription for medication to relieve constipation will be sent. - Follow-up results with me if there's any issue. - Make sure to go to the lab after checkout today. - if possible cut down on drinking alcohol Review of Systems - General: No fever no chills - Neurological: No headaches no dizziness - Ear nose throat: No sore throat no hearing difficulty no ear pain - Cardiovascular: No syncope, no chest pain, no palpitations - Gastrointestinal: No nausea vomiting or diarrhea - Endocrine: No polyuria polydipsia no heat intolerance - Genitourinary: No dysuria , no blood in urine Physical Exam General: No acute distress HEENT: No acute findings Neck: Supple Respiratory system: Able to talk in full sentences, no audible wheeze Cardiovascular: S1-S2 regular in rate and rhythm, no chest pain, no shortness of breath Gastrointestinal: Constipated Extremities: No new findings, no swelling INCLUSION SPECIAL EDUCATOR: Alert awake oriented x3 motor sensory intact Skin: Normal turgor PFSH Medical History GERD (gastroesophageal reflux disease) High blood pressure High blood cholesterol Surgical History No pertinent past surgical history Family History Mother Colon cancer S/P triple vessel bypass Father Prostate cancer Other Mental health disorder Social History Housing: Other Alcohol intake: current Alcohol intake frequency: a few times a week Comment: 1-2 drinks per day. Varies from hard liquor + beer. Patient Tobacco Use Status: Current everyday Tobacco user Cigarettes Per Day: 4 Years Smoked: 40 years e-Cigarette/Vaping Use: Never Used service: No Current occupational status: disabled Cognitive needs: No Hearing needs: No Vision needs: No Questionnaire Thrive Questionnaire Date Thrive assessed: 06/01/24 I am a: Patient What is your living situation today?: I have a steady place to live Within the past 12 months, did the food you bought not last and you didn't have the money to get more?: Never true Within the past 12 months, did you worry whether your food would run out before you got money to buy more?: Never true Do you have trouble paying for medicines?: No Do you have trouble getting transportation to medical appointments?: No Do you have trouble paying your heating and electricity bill?: No Do you have trouble taking care of your child, family member or friend?: No Do you have trouble with day-to-day activities such as bathing, preparing meals, shopping, managing finances, etc.?: No Are you currently unemployed and looking for a job?: No Are you interested in more education?: No Please select the resources that you would like help with: None THRIVE Score: 0 RAAD-7 AMB Questionnaire RAAD-7 Date RAAD - 7 assessed: 03/02/24 Source: Developed by Drs. Damien Carias, Suyapa Gee, Reggie Jaeger and colleagues, with an educational shimon from [employer]. Physical exam (Primary Care) Vital Signs: Last Vital Signs Temp 98.5 F 09/14/24 14:54 Pulse 83 09/14/24 14:54 Resp 12 09/14/24 14:54 BP 128/82 09/14/24 14:54 Pulse Ox 93 09/14/24 14:54 Oxygen Delivery Method Room Air 09/14/24 14:54 Tobacco/Smoking Status: Tobacco use Status Tobacco use date assessed 09/14/24 09/14/24 14:58 Patient Tobacco Use Status Current everyday Tobacco 09/14/24 14:53 e-Cigarette/Vaping Use Never Used 09/14/24 14:53 Thrive Assessment: Date of Thrive Assessment Date Thrive assessed 06/01/24 09/14/24 14:53 Coding Level of Care Code Est Pt Level 4 (03273) Complex EM visit Add On G2211 Diagnoses Hypertension, essential I10 Vitamin D deficiency E55.9 Recurrent major depressive disorder, in full remission F33.42 Active/Remission status: in full remission Paresthesias R20.2 Alcoholism F10.20 Lipid disorder E78.9 Constipation by delayed colonic transit K59.01 Microcytic anemia D50.9 Hypokalemia E87.6 Chronic GERD K21.9 Tobacco use Z72.0 B12 deficiency E53.8 Assessment & Plan Assessment & Plan (1) Hypertension, essential: Code(s): I10 - Essential (primary) hypertension Category: Medical (2) Vitamin D deficiency: Code(s): E55.9 - Vitamin D deficiency, unspecified Category: Medical (3) Depression, major, recurrent: Code(s): F33.9 - Major depressive disorder, recurrent, unspecified Category: Medical Qualifiers: Active/Remission status: in full remission Qualified Code(s): F33.42 - Major depressive disorder, recurrent, in full remission (4) Paresthesias: Code(s): R20.2 - Paresthesia of skin Category: Medical (5) Alcoholism: Comment: CONSEQUENCES OF DRINKING PROBLEMS There are a number of serious consequences of drinking alcohol excessively -------Excessive alcohol consumption is a leading preventable cause of in the [place]. --------Drinking alcohol increases the risk of traffic accidents, suicide, drowning, and other serious injuries. -------Alcohol use continues to be the leading cause of injuries treated in trauma centers and emergency departments . --------Alcohol-related liver disease may lead to end-stage liver disease (cirrhosis) and . --------Alcohol increases the risk of certain cancers of the mouth, esophagus, throat, liver, and breast. Code(s): F10.20 - Alcohol dependence, uncomplicated Category: Medical (6) Lipid disorder: Code(s): E78.9 - Disorder of lipoprotein metabolism, unspecified Category: Medical (7) Constipation by delayed colonic transit: Code(s): K59.01 - Slow transit constipation Category: Medical (8) Microcytic anemia: Code(s): D50.9 - Iron deficiency anemia, unspecified Category: Medical (9) Hypokalemia: Code(s): E87.6 - Hypokalemia Category: Medical (10) Chronic GERD: Code(s): K21.9 - Gastro-esophageal reflux disease without esophagitis Category: Medical (11) Tobacco use: Code(s): Z72.0 - Tobacco use Category: Social Hx (12) B12 deficiency: Code(s): E53.8 - Deficiency of other specified B group vitamins Category: Medical Plan History - The patient is a 63-year-old female presenting with anemia and constipation. - Anemia: Noted to have a drop in hemoglobin during a visit in May. Possible causes such as hemorrhoids or constipation-related blood loss were considered. - Constipation: The patient reports ongoing constipation. She has been unable to confirm receipt of Dulcolax. The constipation persists and contributes to her overall discomfort. - Hypokalemia: Potassium levels were noted to be low, possibly linked to alcohol consumption. - Vitamin D deficiency was also identified, and the patient is advised to take vitamin D supplements. - continued to smoke - GERD is stable - also suffers from multiple joint pain using diclofenac local rub Medical History: - Anxiety - Essential Hypertension - Hyperlipidemia - Hypothyroidism - Gastroesophageal Reflux Disease Medications: - Amlodipine 5 mg for hypertension - Atorvastatin for hyperlipidemia - Buspirone for anxiety - Levothyroxine for hypothyroidism - Omeprazole for gastroesophageal reflux disease Social History: - Alcohol consumption: The patient reports ongoing alcohol use with no desire to stop. Diagnostic Results: - Labs: Hemoglobin drop observed in May. Low potassium level. Problem List - Anemia - Constipation - Hypokalemia - Anxiety - Essential Hypertension - Hyperlipidemia - Hypothyroidism - Gastroesophageal Reflux Disease Patient Instructions - Take vitamin D supplements as recommended. - Ensure to complete a blood test today to monitor hemoglobin and potassium levels. - A prescription for medication to relieve constipation will be sent. - Follow-up results with me if there's any issue. - Make sure to go to the lab after checkout today. - if possible cut down on drinking alcohol Orders: Orders Complete Blood Count Auto Diff Today E55.9 - Vitamin D deficiency, unspecified, E78.9 - Disorder of lipoprotein metabolism, unspecified, F10.20 - Alcohol dependence, uncomplicated, F33.42 - Major depressive disorder, recurrent, in full remission, I10 - Essential (primary) hypertension, R20.2 - Paresthesia of skin Ferritin Today E55.9 - Vitamin D deficiency, unspecified, E78.9 - Disorder of lipoprotein metabolism, unspecified, F10.20 - Alcohol dependence, uncomplicated, F33.42 - Major depressive disorder, recurrent, in full remission, I10 - Essential (primary) hypertension, R20.2 - Paresthesia of skin Comprehensive Met. Panel Today E55.9 - Vitamin D deficiency, unspecified, E78.9 - Disorder of lipoprotein metabolism, unspecified, F10.20 - Alcohol dependence, uncomplicated, F33.42 - Major depressive disorder, recurrent, in full remission, I10 - Essential (primary) hypertension, R20.2 - Paresthesia of skin Vitamin B12 Today E55.9 - Vitamin D deficiency, unspecified, E78.9 - Disorder of lipoprotein metabolism, unspecified, F10.20 - Alcohol dependence, uncomplicated, F33.42 - Major depressive disorder, recurrent, in full remission, I10 - Essential (primary) hypertension, R20.2 - Paresthesia of skin Medications: New cholecalciferol (vitamin D3) 25 mcg PO DAILY 90 days 90 caps 1RF Changed From bisacodyl (Dulcolax (bisacodyl)) take 4 tabs at noon the day before your colonoscopy 20 mg (4 x 5 mg) PO ONCE 1 day 4 tabs 0RF K59.01 - Slow transit constipation To bisacodyl (Dulcolax (bisacodyl)) 10 mg (2 x 5 mg) PO ONCE 90 days 180 tabs 0RF constipation K59.01 - Slow transit constipation Refilled diclofenac sodium 3% 1 appl topical BID 30 days 100 grams 2RF
[2024-09-14 14:54] VITALS: BP 128/82; PULSE 83; RESP 12; TEMP 36.9; O2SAT 93; BMI 25.0
--- OUTSIDE RECORDS SUMMARY | 2024-09-14 17:53 | XMS_ITS | Clinical Summary ---
Author Organization [facility] Address [address] [place] [address] Care Team Providers Care Movie Shot Cameraman Name Role Phone Nancy Houston MD Primary Care Provider [phone] Social History Tobacco Use Types Packs/Day Years [...] of 1 - PCV) 11/13/2023 Influenza Vaccine (Season Ended) 2024 RSV Adult > 60+ Yrs or Pregn [...] age to complete this topic Care Teams Movie Shot Cameraman Relationship Specialty Start Date End Date Nancy Houston MD [address] [facility] [place] [id number] PCP - General Internal Medicine 10/10/20
== END 2024-09-14 15:27 | disposition home or self-care (01) ==
LOC: HO.HMCC 14:50
PROVIDERS: PCP Internal Medicine; Visit Provider Internal Medicine
DX: I10 Essential (primary) hypertension (principal); E55.9 Vitamin D deficiency, unspecified; F10.20 Alcohol dependence, uncomplicated; F33.42 Major depressive disorder, recurrent, in full remission; R20.2 Paresthesia of skin; E78.9 Disorder of lipoprotein metabolism, unspecified; K59.01 Slow transit constipation; D50.9 Iron deficiency anemia, unspecified; E87.6 Hypokalemia; K21.9 Gastro-esophageal reflux disease without esophagitis; Z72.0 Tobacco use; E53.8 Deficiency of other specified B group vitamins

== ENCOUNTER 2024-09-14 14:49 | Outpatient (REF) | payer MEDICARE, MEDICAID, SELFPAY ==
[2024-09-14 16:12] LABS: MANUAL DIFF FLAG NO
[2024-09-14 16:19] LABS: Basophils Absolute Auto 0.1 X10*3/uL (0.0-0.2); Basophils Percent Auto 0.5 % (0-2); Eosinophils Absolute Auto 0.1 X10*3/uL (0.0-0.4); Eosinophils Percent Auto 1.2 % (0-4); Hematocrit 42.6 % (37.0-47.0); Hemoglobin 14.9 g/dl (12.0-16.0); Imm Gran Abs Auto 0.04 X10*3/uL (0.00-0.03); Imm Gran Pct Auto 0.4 % (0.0-0.4); Lymphocytes Absolute Auto 2.3 X10*3/uL (1.2-4.9); Lymphocytes Percent Auto 22.1 % (20-40); Mean Platelet Volume 10.1 fL (9.4-12.3); Monocytes Absolute Auto 0.7 X10*3/uL (0.1-1.2); Monocytes Percent Auto 6.3 % (2-11); Neutrophils Absolute Auto 7.2 x10*3/uL (2.0-8.3); Neutrophils Percent Auto 69.5 % (45-73); Platelet Count 376 X10*3/uL (160-400); Red Blood Count 4.26 X10*6/uL (4.20-5.50); Red Cell Distribution Width 12.5 % (11.0-16.0); White Blood Count 10.3 X10*3/uL (4.8-10.8)
[2024-09-14 16:59] LABS: Alanine Aminotransferase 12 U/L (0-31); Albumin Level 4.3 g/dL (3.5-5.0); Alkaline Phosphatase 84 U/L (39-117); Anion Gap 14 (12-20); Aspartate Amino Transferase 36 U/L (5-31); Bilirubin Total 0.5 mg/dL (0.0-1.0); Blood Urea Nitrogen 4 mg/dL (9-16); Calcium 9.1 mg/dL (8.4-10.2); Carbon Dioxide 34 mmol/L (22-29); Chloride 102 mmol/L (96-108); Estimated Glomerular Filt Rate > 60; Glucose Random 107 mg/dL (60-115); Sodium 148 mmol/L (135-145); Total Protein 7.3 g/dL (6.5-8.0)
[2024-09-14 17:07] LABS: Ferritin 76 ng/mL (10-250)
[2024-09-14 17:13] LABS: Vitamin B12 319 pg/mL (200-900)
[2024-09-14 18:14] LABS: Potassium 2.2 mmol/L (3.3-5.1)
== END 2024-09-14 14:50 | disposition home or self-care (01) ==
LOC: HO.HMGCLDS 14:49
PROVIDERS: PCP Internal Medicine; Visit Provider Internal Medicine
DX: Z13.89 Encounter for screening for other disorder (principal)
CPT/HCPCS: 36415; 80053; 82607; 82728; 85025; 99212

== ENCOUNTER 2024-09-16 09:47 | Inpatient (IN) | payer MEDICARE, MEDICAID, SELFPAY ==
--- NOTE | ~2024-09-16 | CT_ITS ---
EXAMINATION: CT HEAD WITHOUT CONTRAST CLINICAL INFORMATION: Left lower extremity weakness, numbness, and dizziness COMPARISON: September 21, 2018 TECHNIQUE: Contiguous axial imaging was performed from the skull base to vertex without intravenous administration of contrast. This CT examination was performed using dose optimization techniques as appropriate, variously including the following: *Automated exposure control *Adjustment of mA and/or kV according to patient size (this includes techniques or standardized protocols for targeted exams where dose is matched to indication/reason for exam; i.e. extremities or head) *Use of iterative reconstruction technique DLP: 633 mGY*cm FINDINGS: There is no acute ischemic change. There is no intracranial hemorrhage. There is no mass-effect or midline shift. Basal cisterns and ventricles are within normal limits for age/cerebral volume. Orbits are symmetrical and unremarkable. Paranasal sinuses and mastoid air cells are pneumatized. There are no bony abnormalities. CT/CT head/brain wo IV con IMPRESSION: No acute intracranial abnormality. Electronically signed by: Hector Dempsey MD 09/16/2024 11:19 AM EDT
[2024-09-16 10:08] VITALS: BP 127/81; PULSE 82; RESP 18; TEMP 36.7; O2SAT 95; BMI 26.0
--- NOTE | 2024-09-16 10:08 | ECG_ITS ---
Test Reason : low k Blood Pressure : */* mmHG Vent. Rate : 77 BPM Atrial Rate : 77 BPM P-R Int : 152 ms QRS Dur : 62 ms QT Int : 430 ms P-R-T Axes : 57 41 84 degrees QTcB Int : 486 ms Normal sinus rhythm Possible Left atrial enlargement Low voltage QRS Septal infarct , age undetermined Abnormal ECG When compared with ECG of 03-Dec-2023 10:59, Septal infarct is now Present Nonspecific T wave abnormality has replaced inverted T waves in Inferior leads Referred By: Lisa Kendall Electronically Signed By: ALFONSO SWANN MD
--- NOTE | 2024-09-16 10:14 | ED_ITS ---
HPI - General Adult General Chief complaint: General Medical Stated complaint: needs iv sent from md office Time Seen by Provider: 09/16/24 09:56 Source: patient, RN notes reviewed and old records reviewed Mode of arrival: ambulatory History of Present Illness ED Provider: Lisa Kendall PA-C HPI narrative: 63-year-old female with a past medical history of anemia, constipation, anxiety, HTN, HLD, hypothyroid, GERD, ETOH abuse, presenting to the ED sent in by PCP for hypokalemia [2.2] noted on outpatient labs from 09/14/2024. Patient reports dizziness described as feeling off balance x months, unchanged, and LLE weakness/numbness x unknown time. Poor historian. Denies other complaints including headache, CP/SOB, nausea, vomiting Related Data Home Medications ?Medication ?Instructions ?Recorded ?Confirmed buspirone 10 mg tablet 10 mg PO TID PRN Anxiety 09/16/24 09/16/24 diclofenac sodium 3 % topical gel 1 appl topical BID PRN Pain 09/16/24 09/16/24 levothyroxine 75 mcg tablet 75 mcg PO DAILY@0600 09/16/24 09/16/24 omeprazole 20 mg capsule,delayed 20 mg PO BID@0630,1630 09/16/24 09/16/24 release Previous Rx's ?Medication ?Instructions ?Recorded amlodipine 5 mg tablet 5 mg PO DAILY 90 days #90 tabs 06/01/24 atorvastatin 10 mg tablet 10 mg PO DAILY 90 days #90 tabs 06/01/24 irbesartan 75 mg tablet 75 mg PO DAILY 90 days #90 tabs 06/01/24 folic acid 1 mg tablet 1 mg PO DAILY #30 tabs 09/17/24 magnesium oxide 400 mg (241.3 mg 400 mg PO BID #60 tabs 09/17/24 magnesium) tablet potassium chloride 20 mEq oral 20 meq PO BID #60 ea 09/17/24 packet thiamine mononitrate (vit B1) 100 100 mg PO DAILY #30 tabs 09/17/24 mg tablet Allergies Allergy/AdvReac Type Severity Reaction Status Date / Time No Known Allergies Allergy Verified 09/16/24 10:12 [No Known Allergies*] Review of Systems 2 Review of Systems: Yes all other systems are reviewed and are negative Constitutional: Constitutional: Reports as per [facility] Past Medical History Attestation statement: The following information was validated with the patient. Source: old records reviewed Medical History GERD (gastroesophageal reflux disease) High blood pressure High blood cholesterol Surgical History No pertinent past surgical history Family History Family History Mother Colon cancer S/P triple vessel bypass Father Prostate cancer Other Mental health disorder Social History Social History Household Members: Spouse Housing: Other Alcohol intake: current Alcohol intake frequency: 3 or more drinks per day Alcohol type: hard liquor Comment: 1-2 drinks per day. Varies from hard liquor + beer. Patient Tobacco Use Status: Current everyday Tobacco user Tobacco use type: Cigarette Cigarettes Per Day: 7 Years Smoked: 52 e-Cigarette/Vaping Use: Currently Using Substance Use Type: Marijuana service: No Current occupational status: disabled Cognitive needs: No Hearing needs: No Vision needs: No Physical Exam ED Vital Signs: Vital Signs - 24 hr 09/16/24 10:08 09/16/24 10:26 09/16/24 10:27 Temperature 98.1 F Pulse Rate 82 77 82 Respiratory Rate 18 Blood Pressure 127/81 126/66 136/63 Pulse Oximetry 95 Oxygen Delivery Method Room Air 09/16/24 10:27 Temperature Pulse Rate 87 Respiratory Rate Blood Pressure 114/78 Pulse Oximetry Oxygen Delivery Method BMI result Body Mass Index 26.0 Const General: cooperative, healthy appearing and no acute distress Orientation/consciousness: patient oriented x3 Limitations: no limitations HENMT Head: Yes normal to inspection and Yes atraumatic Ears: hearing grossly normal bilaterally General nose exam: Normal external nose present Face and sinus: Yes normal facial exam Mouth: Normal oral and palatal mucosa present and no drooling Throat: Yes posterior oropharynx normal Eyes General: appearance normal, both eyes and all related structures Pupils: Equal, round and reactive pupils present EOM: EOMs intact bilaterally Neck Neck: Yes normal visual inspection and Yes no meningeal signs Resp Effort & Inspection: normal respiratory effort and no respiratory distress Auscultation: clear to auscultation bilaterally, no crackles and no wheezes Cardio Rate: regular rate Heart sounds: S1 normal heart sound present and S2 normal heart sound present GI Inspection: Yes normal to inspection Palpation (GI): Soft to palpation, nontender, no guarding and not rigid Skin Rashes: no rashes Wounds: no wounds Neuro General: patient oriented x3, gait normal, tone normal, moves all extremities, no meningeal signs and CN's II-XI intact bilaterally Cranial nerves: Yes CN's II-XII intact bilaterally, Yes Equal, round and reactive pupils present and Yes Bilaterally intact EOM present Cognition (Neuro): normal cognition Gait exam (Neuro): Normal gait present Motor exam (neuro): Abnormal motor strength present (LLE weakness appreciated, sensation intact to light touch) Coordination: [id number] test normal Romberg Test: Negative Extrem General: Yes normal to inspection Course Course Course Narrative: -1106--potassium notably low at 2.4 > 40 mEq p.o. and 20 mEq IV repletion ordered. Magnesium WNL at 1.6. Troponin negative. Labs otherwise reassuring CT head/brain wo IV con IMPRESSION: No acute intracranial abnormality. > plan to admit for further management. Case discussed with hospitalist 11:50 Medications Administered Discontinued Medications Generic Name Dose Route Start Last Admin Trade Name Freq PRN Reason Stop Dose Admin Amlodipine Besylate 5 mg 09/17/24 09:00 09/17/24 11:53 Amlodipine Besylate 5 Mg Tablet PO 5 mg DAILY SHANNAN Administration Protocol Atorvastatin Calcium 10 mg 09/17/24 09:00 09/17/24 11:53 Atorvastatin Calcium 10 Mg Tablet PO 10 mg DAILY SHANNAN Administration Enoxaparin Sodium 40 mg 09/17/24 09:00 09/17/24 11:54 Enoxaparin Sodium 40 Mg/0.4 Ml Syringe SUBCUT Not Given Q24H SHANNAN Folic Acid 1 mg 09/17/24 09:00 09/17/24 11:53 Folic Acid 1 Mg Tablet PO 09/20/24 08:59 1 mg DAILY SHANNAN Administration Potassium Chloride 10 meq in 100 mls @ 100 mls/hr 09/16/24 11:00 09/16/24 14:01 Potassium Chloride/H20 IV 09/16/24 12:59 Infused Q1H SHANNAN Infusion Lactated Ringer's 1,000 mls @ 999 mls/hr 09/16/24 13:00 09/16/24 16:47 Lr IV 09/16/24 14:00 Infused .Q1H1M SHANNAN Infusion Potassium Chloride 10 meq in 100 mls @ 100 mls/hr 09/16/24 17:30 09/17/24 00:00 Potassium Chloride/H20 IV 09/16/24 21:29 Infused Q1H SHANNAN Infusion Magnesium Sulfate 2 gm in 50 mls @ 150 mls/hr 09/16/24 17:27 09/16/24 18:28 Magnesium Sulfate/H2o IV 09/16/24 17:46 Infused ONCE STA Infusion Potassium Chloride 10 meq in 100 mls @ 100 mls/hr 09/17/24 08:15 09/17/24 12:50 Potassium Chloride/H20 IV 09/17/24 10:14 Infused Q1H SHANNAN Infusion Levothyroxine Sodium 75 mcg 09/17/24 06:00 09/17/24 06:25 Levothyroxine Sodium 75 Mcg Tablet PO 75 mcg DAILY@0600 SHANNAN Administration Magnesium Oxide 400 mg 09/16/24 21:00 09/17/24 11:53 Magnesium Oxide 400 Mg Tablet PO 400 mg BID SHANNAN Administration Multivitamins/Vitamin C 1 tab 09/16/24 12:35 09/16/24 13:31 Multivitamin Tablet PO 09/16/24 12:36 1 tab DAILY ONE Administration Potassium Chloride 40 meq 09/16/24 10:59 09/16/24 11:18 Potassium Chloride Er 20 Meq Tab.Er.Prt PO 09/16/24 11:00 40 meq ONCE ONE Administration Potassium Chloride 40 meq 09/16/24 17:27 09/16/24 18:32 Potassium Chloride Packet 20 Meq Packet PO 09/16/24 17:28 40 meq ONCE STA Administration Potassium Chloride 40 meq 09/16/24 21:00 09/17/24 11:53 Potassium Chloride Er 20 Meq Tab.Er.Prt PO 40 meq BID SHANNAN Administration Sodium Chloride 3 ml 09/16/24 16:00 09/17/24 11:54 0.9 % Sodium Chloride Flush 3 Ml Syringe IVFLUSH 3 ml QSHIFT SHANNAN Administration Thiamine HCl 100 mg 09/16/24 12:07 09/16/24 12:21 Thiamine Hcl 100 Mg Tablet PO 09/16/24 12:08 100 mg ONCE ONE Administration Thiamine HCl 100 mg 09/17/24 09:00 09/17/24 11:53 Thiamine Hcl 100 Mg Tablet PO 100 mg DAILY SHANNAN Administration Valsartan 40 mg 09/17/24 09:00 09/17/24 11:53 Valsartan 40 Mg Tablet PO 40 mg DAILY SHANNAN Administration Medical Decision Making Medical Decision Making [facility] Narrative: 63-year-old female with a past medical history of anemia, constipation, anxiety, HTN, HLD, hypothyroid, GERD, ETOH abuse, presenting to the ED sent in by PCP for hypokalemia [2.2] noted on outpatient labs from 09/14/2024. Patient reports dizziness described as feeling off balance x months, unchanged, and LLE weakness/numbness x unknown time. On exam vital signs stable, NAD, nontoxic appearing, ambulating with steady gait, no ataxia, LLE weakness noted - not new -concern for metabolic abnormalities including hypokalemia. Concern for subacute CVA. Low suspicion for TIA or ICH. Patient is not in the window for TNK Plan: EKG, labs, UA, head CT, orthostatics, re-evaluate Please refer to course for remaining clinical decision making, interpretation of labs/imaging results, and discussions with consultants and/or family members. Differential Diagnosis Differential Diagnoses: The differential diagnosis associated with the presentation includes As above Admission/Observation Consideration of admission/observation: Escalation of care including admission/observation considered Lab Data [facility] Lab Attestation statement: I reviewed the patient's lab results. 09/17/24 06:52 09/17/24 11:15 Labs: Lab Results 09/16/24 Range/Units 10:30 WBC 7.5 (4.8-10.8) X10*3/uL RBC 3.99 L (4.20-5.50) X10*6/uL Hgb 14.0 (12.0-16.0) g/dl Hct 39.6 (37.0-47.0) % MCV 99.2 H (80.0-98.0) fL MCH 35.1 H (27.0-33.0) pg MCHC 35.4 H (31.0-35.0) g/dl RDW 12.4 (11.0-16.0) % Plt Count 337 (160-400) X10*3/uL MPV 9.7 (9.4-12.3) fL Immature Gran % (Auto) 0.3 (0.0-0.4) % Neut % (Auto) 58.8 (45-73) % Lymph % (Auto) 31.1 (20-40) % [place] % (Auto) 7.4 (2-11) % Eos % (Auto) 1.7 (0-4) % Baso % (Auto) 0.7 (0-2) % Lymph # (Auto) 2.3 (1.2-4.9) X10*3/uL [place] # (Auto) 0.6 (0.1-1.2) X10*3/uL Eos # (Auto) 0.1 (0.0-0.4) X10*3/uL Baso # (Auto) 0.1 (0.0-0.2) X10*3/uL Abs Immat Gran (auto) 0.02 (0.00-0.03) X10*3/uL Absolute Neuts (auto) 4.4 (2.0-8.3) x10*3/uL Absolute Nucleated RBC 0.000 (0.0-0.012) X10*3/uL Nucleated RBC % (auto) 0.0 (0.0-0.2) /100WBC Sodium 145 (135-145) mmol/L Potassium 2.4 L* (3.3-5.1) mmol/L Chloride 102 (96-108) mmol/L Carbon Dioxide 33 H (22-29) mmol/L Anion Gap 12 (12-20) BUN 6 L (9-16) mg/dL Creatinine 0.69 (0.5-1.4) mg/dL Estim Creat Clear Calc 80.3 Estimated GFR > 60 Random Glucose 101 (60-115) mg/dL Calcium 8.7 (8.4-10.2) mg/dL Magnesium 1.6 (1.6-2.6) mg/dL Total Bilirubin 0.5 (0.0-1.0) mg/dL Direct Bilirubin 0.2 (0.0-0.5) mg/dL AST 28 (5-31) U/L ALT 12 (0-31) U/L Alkaline Phosphatase 76 (39-117) U/L Troponin I High Sens < 2.7 (<3.5-17.0) ng/L Total Protein 6.9 (6.5-8.0) g/dL Albumin 3.9 (3.5-5.0) g/dL TSH 0.65 (0.32-4.0) uIU/mL Ethyl Alcohol 59 mg/dL Influenza Type A (PCR) NEGATIVE (Negative) Influenza Type B (PCR) NEGATIVE (Negative) RSV RNA Qual (PCR) NEGATIVE (Negative) SARS-CoV-2 RNA (RT-PCR) NEGATIVE (Negative) Independent Interpretation I performed an independent interpretation of an: EKG (My interpretation EKG normal sinus rhythm rate of 77. [place] interval 152. QRS 62. Septal infarct now present when compared to prior. No STEMI) and CT Scan Radiology Impression Discussion of test interpretation with radiology: I have reviewed the radiologist's reading. External Record Review External record reviewed: Inpatient record, Office record, Outpatient record, Prior outpatient labs, Prior outpatient radiology, Primary care record and Outside ED record Tests considered The following testing was considered but not selected: As above Prescription Management I considered prescription management with: Other Chronic Conditions Patient?s care impacted by: Other Social Determinants Patient?s care significantly limited by Social Determinants of Health including: Other Social Determinant of Health Critical Care Time Critical Care Time Critical Care Time: Yes Total Critical Care Time: 35 Attestation: I have personally provided critical care time exclusive of time spent on separately billable procedures. Time includes review of lab data, radiology results, discussion with consultants, and monitoring for potential decompensation. Intervention performed as documented. Discharge Plan Discharge Clinical Impression: Hypokalemia, Weakness of left lower extremity, Dizziness Patient Disposition: Admitted As Inpatient Interventions: Admission Worksheet (ED) Last Done: 09/17/24 08:43 Discharge Date/Time: 09/17/24 10:30
--- NOTE | 2024-09-16 10:17 | PC.NURSE ---
Pt roomed changed and placed on full monitor- during Provider assessment- pt was unable to lift left leg but all other neuro assessment intact. Pt in NSR at this time,
[2024-09-16 10:26] VITALS: BP 126/66; PULSE 77
[2024-09-16 10:27] VITALS: BP 114/78; BP 136/63; PULSE 82; PULSE 87
[2024-09-16 10:36] LABS: MANUAL DIFF FLAG NO
[2024-09-16 10:38] LABS: Basophils Absolute Auto 0.1 X10*3/uL (0.0-0.2); Basophils Percent Auto 0.7 % (0-2); Eosinophils Absolute Auto 0.1 X10*3/uL (0.0-0.4); Eosinophils Percent Auto 1.7 % (0-4); Hematocrit 39.6 % (37.0-47.0); Imm Gran Abs Auto 0.02 X10*3/uL (0.00-0.03); Imm Gran Pct Auto 0.3 % (0.0-0.4); Lymphocytes Absolute Auto 2.3 X10*3/uL (1.2-4.9); Lymphocytes Percent Auto 31.1 % (20-40); Mean Corpuscular HGB Conc 35.4 g/dl (31.0-35.0); Mean Corpuscular Hemoglobin 35.1 pg (27.0-33.0); Mean Corpuscular Volume 99.2 fL (80.0-98.0); Mean Platelet Volume 9.7 fL (9.4-12.3); Monocytes Absolute Auto 0.6 X10*3/uL (0.1-1.2); Monocytes Percent Auto 7.4 % (2-11); Neutrophils Absolute Auto 4.4 x10*3/uL (2.0-8.3); Neutrophils Percent Auto 58.8 % (45-73); Platelet Count 337 X10*3/uL (160-400); Red Blood Count 3.99 X10*6/uL (4.20-5.50); Red Cell Distribution Width 12.4 % (11.0-16.0); White Blood Count 7.5 X10*3/uL (4.8-10.8)
[2024-09-16 11:00] LABS: Alanine Aminotransferase 12 U/L (0-31); Albumin Level 3.9 g/dL (3.5-5.0); Alkaline Phosphatase 76 U/L (39-117); Anion Gap 12 (12-20); Aspartate Amino Transferase 28 U/L (5-31); Bilirubin Direct 0.2 mg/dL (0.0-0.5); Bilirubin Total 0.5 mg/dL (0.0-1.0); Blood Urea Nitrogen 6 mg/dL (9-16); Calcium 8.7 mg/dL (8.4-10.2); Carbon Dioxide 33 mmol/L (22-29); Chloride 102 mmol/L (96-108); Creatinine Clr Calc Pharmacy 80.3; Estimated Glomerular Filt Rate > 60; Ethanol 59 mg/dL; Glucose Random 101 mg/dL (60-115); Magnesium 1.6 mg/dL (1.6-2.6); Potassium 2.4 mmol/L (3.3-5.1); Sodium 145 mmol/L (135-145); Total Protein 6.9 g/dL (6.5-8.0); Troponin-I High Sensitivity < 2.7 ng/L (<3.5-17.0)
[2024-09-16] MEDS: Potassium Chloride/H20 10 MEQ/100 ML PIGGYBACK 100 MEQ IV ×6 (11:17→22:52)
[2024-09-16] MEDS: Potassium Chloride ER 20 MEQ TAB.ER.PRT 40 MEQ PO ×2 (11:18→21:04)
[2024-09-16 12:01] LABS: Influenza A PCR NEGATIVE (Negative); Influenza B PCR NEGATIVE (Negative); Resp Syncy Virus RNA Qual PCR NEGATIVE (Negative); SARS COV2 PCR INHOUSE NEGATIVE (Negative)
[2024-09-16] MEDS: Thiamine HCL 100 MG TABLET PO (12:21)
--- NOTE | 2024-09-16 12:33 | PHA.MEDREC ---
Addendum entered by Lesly Aguilar RPh 09/16/24 12:47: MED REC REVIEWED Original Note: Pharmacy Consult ? Medication Reconciliation Pharmacy has completed the medication reconciliation. Spoke with pt and she confirmed her medications. Pt confirmed she hadn't started the Vitamin D3 tabs or Potassium tabs prescribed recently by her
--- NOTE | 2024-09-16 12:41 | P.HPHOSP_ITS ---
History of Present Illness Date of Service: 09/16/24 Attending physician on admission: Javon Gomez Chief Complaint: Feeling off balance Magdalene Saenz is a 63 years old woman with past medical history significant for essential hypertension on valsartan and amlodipine, hyperlipidemia and hypothyroidism presents to the emergency department complaining of dizziness/feeling off balance over the last few months. She does not get dizzy when she is resting or lying down. Denied any falls. She denied any headache, loss of consciousness, chest pain, shortness on breath, abdominal pain, nausea, vomiting, cough or diarrhea. She mentioned she has constipation and taking OTC laxative sometimes. Last bowel movement was today and has been normal. There is no fever or chills. She does not take diuretics. She stated that she urinates normally. Patient drinks alcohol daily 12 glass -last drink was last night. She has been found to have hypokalemia in the past and has not happened in workup for it so far. Patient did not report any focal weakness, facial numbness respiratory difficulty; reported tingling sensation in the hands and feet. She smoked tobacco for cigarettes daily for many years. Also consume marijuana (joint + gummie). In the ED, she was found to have normal vital signs. Blood workup showed no leukocytosis. Hemoglobin is 14.0 and platelets 337. Potassium is 2.4. Other electrolytes are normal including magnesium (1.6). LFTs are normal. Troponin is less than 2.7. ETOH level 59. Viral testing for COVID-19, influenza and RSV. Head CT scan showed no acute intracranial abnormalities. ECG showed normal sinus rhythm and no ischemic changes. QT interval is normal. ED tx: KCl 40 mEq p.o. and 20 mEq IV PMFSH Medical History GERD (gastroesophageal reflux disease) High blood pressure High blood cholesterol Family History Mother Colon cancer S/P triple vessel bypass Father Prostate cancer Other Mental health disorder Surgical History No pertinent past surgical history Social History Housing: Other Alcohol intake: current Alcohol intake frequency: 3 or more drinks per day Alcohol type: hard liquor Comment: 1-2 drinks per day. Varies from hard liquor + beer. Patient Tobacco Use Status: Current everyday Tobacco user Cigarettes Per Day: 4 Years Smoked: 40 years Smoked in Last 30 Days: Yes e-Cigarette/Vaping Use: Never Used Substance Use Type: Marijuana Substance Use Type Other:: I smoke a lit bit with my Advance Directives: No Advance Directives Information Provided: Yes service: No Current occupational status: disabled Cognitive needs: No Hearing needs: No Vision needs: No Meds Allergies Allergy/AdvReac Type Severity Reaction Status Date / Time No Known Allergies Allergy Verified 09/16/24 10:12 [No Known Allergies*] Active Medications: Current Medications Acetaminophen (Acetaminophen 325 Mg Tablet) 650 mg PO Q6H PRN PRN Reason: Pain, Mild 1-3,fever,headache Amlodipine Besylate (Amlodipine Besylate 5 Mg Tablet) 5 mg PO DAILY [facility]; Protocol Atorvastatin Calcium (Atorvastatin Calcium 10 Mg Tablet) 10 mg PO DAILY [facility] Buspirone HCl (Buspirone Hcl 10 Mg Tablet) 10 mg PO TID PRN PRN Reason: Anxiety Calcium Carbonate (Calcium Carbonate 750 Mg Tab.Chew) 750 mg PO Q4H PRN PRN Reason: Heartburn Enoxaparin Sodium (Enoxaparin Sodium 40 Mg/0.4 Ml Syringe) 40 mg SUBCUT Q24H [facility] Folic Acid (Folic Acid 1 Mg Tablet) 1 mg PO DAILY [facility] Stop: 09/20/24 08:59 Potassium Chloride (Potassium Chloride/H20) 10 meq in 100 mls @ 100 mls/hr IV Q1H [facility] Stop: 09/16/24 12:59 Last Admin: 09/16/24 12:22 Dose: 100 mls/hr Levothyroxine Sodium (Levothyroxine Sodium 75 Mcg Tablet) 75 mcg PO DAILY@0600 [facility] Magnesium Hydroxide (Milk Of Magnesia 30 Ml Oral.Susp) 30 ml PO DAILY PRN PRN Reason: Constipation Melatonin (Melatonin 3 Mg Tablet) 6 mg PO BEDTIME PRN PRN Reason: Insomnia Non-Formulary Medication (Irbesartan) 75 mg PO DAILY [facility] Sodium Chloride (0.9 % Sodium Chloride Flush 3 Ml Syringe) 3 ml IVFLUSH QSHIFT [facility] Thiamine HCl (Thiamine Hcl 100 Mg Tablet) 100 mg PO DAILY [facility] Home Medications ?Medication ?Instructions ?Recorded ?Confirmed ?Last Taken ?Type buspirone 10 mg tablet 10 mg PO TID PRN Anxiety 09/16/24 09/16/24 Unknown History diclofenac sodium 3 % topical gel 1 appl topical BID PRN Pain 09/16/24 09/16/24 Unknown History levothyroxine 75 mcg tablet 75 mcg PO DAILY@0600 09/16/24 09/16/24 09/16/24 History omeprazole 20 mg capsule,delayed 20 mg PO BID@0630,1630 09/16/24 09/16/24 09/16/24 History release Physical Exam 2 Vital Signs and Narrative: Vital Signs: Last Vital Signs Temp 98.1 F 09/16/24 10:08 Pulse 87 09/16/24 10:27 Resp 18 09/16/24 10:08 BP 114/78 09/16/24 10:27 Pulse Ox 95 09/16/24 10:08 O2 Del Method Room Air 09/16/24 10:08 BMI result Body Mass Index 26.0 Constitutional - Awake and Alert, No apparent distress. Pleasant. Cooperative. HEENT - PER, EOMI. Normal sclerae. Dry oral mucosa. Heart - S1S2, RRR, No edema Lungs - Normal lung expansion, Normal respiratory effort, No respiratory distress, CTA bilaterally Abdomen - NT / ND; +BS; No rebound or guarding Extremities - no calf tenderness bilaterally, no swelling Musculoskeletal - Normal inspection, normal ROM Skin - Warm/Dry Neurological - Alert & oriented x3. Moving all extremities spontaneously. No facial droop. Normal speech. Psychological - Appropriate affect Results Labs 09/16/24 10:30 09/16/24 10:30 Labs: Laboratory Results - last 24 hr 09/16/24 10:30 MCV 99.2 H MCH 35.1 H MCHC 35.4 H RDW 12.4 Plt Count 337 MPV 9.7 Immature Gran % (Auto) 0.3 Neut % (Auto) 58.8 Lymph % (Auto) 31.1 [place] % (Auto) 7.4 Eos % (Auto) 1.7 Baso % (Auto) 0.7 Lymph # (Auto) 2.3 [place] # (Auto) 0.6 Eos # (Auto) 0.1 Baso # (Auto) 0.1 Abs Immat Gran (auto) 0.02 Absolute Neuts (auto) 4.4 Absolute Nucleated RBC 0.000 Nucleated RBC % (auto) 0.0 Anion Gap 12 Estim Creat Clear Calc 80.3 Estimated GFR > 60 Random Glucose 101 Calcium 8.7 Magnesium 1.6 Total Bilirubin 0.5 Direct Bilirubin 0.2 AST 28 ALT 12 Alkaline Phosphatase 76 Troponin I High Sens < 2.7 Total Protein 6.9 Albumin 3.9 Ethyl Alcohol 59 Influenza Type A (PCR) NEGATIVE Influenza Type B (PCR) NEGATIVE RSV RNA Qual (PCR) NEGATIVE SARS-CoV-2 RNA (RT-PCR) NEGATIVE Imaging Radiologist's Impressions: Impressions Head CT 09/16/24 09:46 IMPRESSION: No acute intracranial abnormality. Electronically signed by: Hector Dempsey MD 09/16/2024 11:19 AM EDT RP Assessment and Plan (1) Hypokalemia: Status: Acute (2) Dizziness: Status: Acute Plan Magdalene Saenz is a 63 y/o admitted with: * Hypokalemia, suspecting this is secondary to alcohol intake: Increase urinary excretion and metabolic alkalosis (poor PO intake of fluids and malnutrition). Admit to hospitalist service. Telemetry. Patient advised to abstain from alcohol intake. Continue potassium supplementation 20 mEq p.o. daily. LR 1L bolus. Continue to monitor K level. Check TSH, urinalysis, urine potassium and VBG. * Dizziness, multifactorial: Related to alcohol intoxication (pt drinks every day), hypokalemia, buspirone (especially if mixing with alcohol). Hold buspirone. Fall precautions (pt educated). * Alcohol abuse. CIWA. Start treatment with thiamine, folic acid and multivitamins. Will consider phenobarbital if needed. Fall precautions (pt educated). Social work. * Hypertension. Continue valsartan and amlodipine. * Hypothyroidism. Continue levothyroxine. * Hyperlipidemia. Continue statin. * Tobacco dependence. Tobacco cessation education. Nicotine patches and gums offered -pt refused. Code status: Full DVT prophylaxis: Lovenox Patient will need hospitalization for at least 2 midnights for hypokalemia + metabolic alkalosis monitoring and treatment with potassium replacement and IV fluids. Quality Stroke Does the patient have a stroke diagnosis?: No VTE Prior VTE?: No VTE Risk Level:: Medical - moderate - high VTE Device Contraindication: Treatment Not Indicated VTE Drug Contraindication: N/A - Med Ordered
--- OUTSIDE RECORDS SUMMARY | 2024-09-16 13:11 | XMS_ITS | Clinical Summary ---
Author Organization [facility] Address [address] [place] [address] Care Team Providers Care Press Setter Name Role Phone Nancy Houston MD Primary Care Provider [phone] Social History Tobacco Use Types Packs/Day Years [...] age to complete this topic Care Teams Press Setter Relationship Specialty Start Date End Date Nancy Houston MD [address] [facility] [place] [id number] PCP - General Internal Medicine 10/10/20
[2024-09-16 13:28] LABS: Appearance Urine Clear; Color Urine Yellow; Glucose Urine UA Negative (Negative); Leukocyte Esterase Urine Trace (Negative); Nitrite Urine Negative (Negative); UMIC TRIGGER UACC YES; Urine Blood Negative (Negative); Urine Ketones Negative (Negative); Urine Protein Negative (Neg-Trace)
[2024-09-16] MEDS: Lactated Ringers 1,000 ML 999 ML IV (13:28)
[2024-09-16 13:31] LABS: Bacteria Urine Trace (None Seen); Hyaline Casts Urine 0-2 /LPF (0-2); RBC Urine 0-2 /HPF (0-2); WBC Urine 0-5 /HPF (0-5)
[2024-09-16] MEDS: Multivitamin TABLET 1 TAB PO (13:31)
[2024-09-16 13:32] LABS: Thyroid Stimulating Hormone 0.65 uIU/mL (0.32-4.0)
[2024-09-16 13:35] LABS: Potassium Urine Random 11.7 mmol/L
[2024-09-16 13:37] LABS: Amphetamine Screen Urine Not Detected (Not Detect); Barbiturates, Urine Not Detected (Not Detect); Benzodiazepines Screen Urine Not Detected (Not Detect); Buprenorphine Scr Not Detected (Not Detect); Cannabinoid Screen Urine POSITIVE (Not Detect); Cocaine Screen Urine POSITIVE (Not Detect); Fentanyl, urine Not Detected (Not Detect); Methadone Screen, Urine Not Detected (Not Detect); Opiate Screen Urine Not Detected (Not Detect); Oxycodone Screen Urine Not Detected (Not Detect); Phencyclidine Screen Urine Not Detected (Not Detect)
[2024-09-16 13:59] VITALS: BP 124/66; PULSE 84; RESP 20; TEMP 36.4; O2SAT 93
[2024-09-16 16:09] VITALS: BP 124/79; PULSE 86; RESP 15; TEMP 36.8; O2SAT 93
[2024-09-16 17:05] LABS: Venous Blood Gas Refer to POC result
[2024-09-16 17:05] LABS: VBG Base Excess 10.5 mmol/L; VBG HCO3 35 mmol/L (22-26); VBG pCO2 47 mmHg; VBG pH 7.47 (7.32-7.43); VBG pO2 58 mmHg
[2024-09-16 17:23] LABS: Anion Gap 11 (12-20); Blood Urea Nitrogen 6 mg/dL (9-16); Calcium 8.4 mg/dL (8.4-10.2); Carbon Dioxide 33 mmol/L (22-29); Chloride 104 mmol/L (96-108); Creatinine Clr Calc Pharmacy 98.9; Estimated Glomerular Filt Rate > 60; Glucose Random 91 mg/dL (60-115); Magnesium 1.4 mg/dL (1.6-2.6); Potassium 2.7 mmol/L (3.3-5.1); Sodium 145 mmol/L (135-145)
[2024-09-16] MEDS: Magnesium Sulfate/H2O 2 GM/50 ML PIGGYBACK IV (18:04)
[2024-09-16] MEDS: Potassium Chloride Packet 20 MEQ PACKET 40 MEQ PO (18:32)
--- NOTE | 2024-09-16 20:14 | PC.NURSE ---
Pt medicated per [facility] Plan of care ongoing.
[2024-09-16] MEDS: Magnesium Oxide 400 MG TABLET PO (21:04)
--- NOTE | 2024-09-16 21:09 | PC.NURSE ---
Pt medicated per [facility] Plan of care ongoing.
[2024-09-16 21:34] VITALS: BP 145/74; PULSE 81; RESP 18; TEMP 36.8; O2SAT 96
--- NOTE | 2024-09-16 22:56 | PC.NURSE ---
Pt medicated per [facility] Plan of care ongoing.
[2024-09-17 02:06] VITALS: BP 148/90; PULSE 84; RESP 14; TEMP 36.8; O2SAT 96
[2024-09-17 02:29] LABS: Anion Gap 13 (12-20); Blood Urea Nitrogen 4 mg/dL (9-16); Calcium 8.4 mg/dL (8.4-10.2); Carbon Dioxide 29 mmol/L (22-29); Chloride 105 mmol/L (96-108); Creatinine Clr Calc Pharmacy 104.6; Estimated Glomerular Filt Rate > 60; Glucose Random 88 mg/dL (60-115); Magnesium 1.7 mg/dL (1.6-2.6); Potassium 3.3 mmol/L (3.3-5.1); Sodium 144 mmol/L (135-145)
--- NOTE | 2024-09-17 05:13 | PC.NURSE ---
this rn assumed care of pt, pt resting in stretcher, no acute distress noted, respirations even and unlabored.
[2024-09-17 06:23] VITALS: BP 130/87; PULSE 81; RESP 16; TEMP 36.6; O2SAT 95
[2024-09-17] MEDS: Levothyroxine Sodium 75 MCG TABLET PO (06:25)
--- NOTE | 2024-09-17 06:26 | PC.NURSE ---
pt medicated per jun, tolerated whole well with water
[2024-09-17 07:01] LABS: MANUAL DIFF FLAG NO
[2024-09-17 07:03] LABS: Basophils Absolute Auto 0.1 X10*3/uL (0.0-0.2); Basophils Percent Auto 0.6 % (0-2); Eosinophils Absolute Auto 0.1 X10*3/uL (0.0-0.4); Hemoglobin 13.5 g/dl (12.0-16.0); Imm Gran Abs Auto 0.04 X10*3/uL (0.00-0.03); Imm Gran Pct Auto 0.4 % (0.0-0.4); Lymphocytes Absolute Auto 1.9 X10*3/uL (1.2-4.9); Lymphocytes Percent Auto 20.1 % (20-40); Mean Corpuscular HGB Conc 35.5 g/dl (31.0-35.0); Mean Corpuscular Hemoglobin 35.3 pg (27.0-33.0); Mean Corpuscular Volume 99.5 fL (80.0-98.0); Mean Platelet Volume 9.8 fL (9.4-12.3); Monocytes Absolute Auto 0.6 X10*3/uL (0.1-1.2); Monocytes Percent Auto 6.4 % (2-11); Neutrophils Absolute Auto 6.7 x10*3/uL (2.0-8.3); Neutrophils Percent Auto 71.5 % (45-73); Platelet Count 315 X10*3/uL (160-400); Red Blood Count 3.82 X10*6/uL (4.20-5.50); Red Cell Distribution Width 12.2 % (11.0-16.0); White Blood Count 9.4 X10*3/uL (4.8-10.8)
[2024-09-17 07:24] LABS: Anion Gap 13 (12-20); Blood Urea Nitrogen 4 mg/dL (9-16); Calcium 8.5 mg/dL (8.4-10.2); Carbon Dioxide 29 mmol/L (22-29); Chloride 104 mmol/L (96-108); Creatinine Clr Calc Pharmacy 106.6; Estimated Glomerular Filt Rate > 60; Glucose Random 87 mg/dL (60-115); Magnesium 1.6 mg/dL (1.6-2.6); Potassium 3.1 mmol/L (3.3-5.1); Sodium 143 mmol/L (135-145)
[2024-09-17] MEDS: Potassium Chloride/H20 10 MEQ/100 ML PIGGYBACK 100 MEQ IV ×2 (08:29→11:50)
[2024-09-17 08:30] VITALS: BP 142/80; PULSE 80; RESP 17; TEMP 36.7; O2SAT 96
--- NOTE | 2024-09-17 09:11 | MHC.CM.PN ---
CM met with Patient at bedside, in the ED, and addressed IMM with her, providing Patient with the original and a copy will be placed on the chart. Patient lives in a mobile home with her /HCP/Jeff, who will transport Patient to home at time of dc. Patient required no services nor DME [employer] and home/self care is her goal.CM has initiated and will follow for dc planning. PCP is Dr. Nancy Houston
--- NOTE | 2024-09-17 09:12 | PC.NURSE ---
Report received. Taken over care at this time.
--- NOTE | 2024-09-17 10:54 | P.DS_ITS ---
DS: Providers Provider Date of Service: 09/17/24 Date of admission: 09/16/24 12:41 Date of discharge: 09/17/24 Primary care physician: Nancy Houston MD Consults: 09/17/24 08:04 Addiction Medicine Provider Routine Consulting Provider: Addiction Covering Reason for consultation: etoh DS: Diagnosis Discharge Diagnosis (1) Dizziness: Status: Acute (2) Hypokalemia: Status: Acute (3) Alcohol use disorder: Status: Acute (4) Hypomagnesemia: Status: Acute DS: Summary Hospital Course Hospital Course: From the history and physical by the admitting hospitalist, Javon Isabeles, 09/16/24: Magdalene Saenz is a 63 years old woman with past medical history significant for essential hypertension on valsartan and amlodipine, hyperlipidemia and hypothyroidism presents to the emergency department complaining of dizziness/feeling off balance over the last few months. She does not get dizzy when she is resting or lying down. Denied any falls. She denied any headache, loss of consciousness, chest pain, shortness on breath, abdominal pain, nausea, vomiting, cough or diarrhea. She mentioned she has constipation and taking OTC laxative sometimes. Last bowel movement was today and has been normal. There is no fever or chills. She does not take diuretics. She stated that she urinates normally. Patient drinks alcohol daily 12 glass -last drink was last night. She has been found to have hypokalemia in the past and has not happened in workup for it so far. Patient did not report any focal weakness, facial numbness respiratory difficulty; reported tingling sensation in the hands and feet. She smoked tobacco for cigarettes daily for many years. Also consume marijuana (joint + gummie). In the ED, she was found to have normal vital signs. Blood workup showed no leukocytosis. Hemoglobin is 14.0 and platelets 337. Potassium is 2.4. Other electrolytes are normal including magnesium (1.6). LFTs are normal. Troponin is less than 2.7. ETOH level 59. Viral testing for COVID-19, influenza and RSV. Head CT scan showed no acute intracranial abnormalities. ECG showed normal sinus rhythm and no ischemic changes. QT interval is normal. ED tx: KCl 40 mEq p.o. and 20 mEq IV She was admitted to the telemetry unit. Potassium and magnesium were repleted and she was started on PO maintenance. Likely etiology of electrolyte deficiencies is alcohol intake. Unfortunately, she was not interested in recovery support for now but was given information on JAZMINE and was counseled to call [facility] if she changes her mind. No history of withdrawal syndrome and no signs of withdrawal syndrome during this admission. She was seen by PT and home PT was recommended. She was discharged home on potassium, magnesium, thiamine, and folate. Time Attestation Discharge Coordination Time (in mins): 45 Quality: Safe Use of Opioids Does Pt have an Active Cancer Diagnosis on the Problem List?: No Quality: Stroke Does the patient have a stroke diagnosis?: No Physical Exam Vital Signs: Vital Signs: Last Vital Signs Temp 98.1 F 09/17/24 08:30 Pulse 80 09/17/24 08:30 Resp 17 09/17/24 08:30 BP 142/80 H 09/17/24 08:30 Pulse Ox 96 09/17/24 08:30 O2 Del Method Room Air 09/17/24 08:30 BMI result Body Mass Index 26.0 Gen: in no acute distress HEENT: sclera anicteric, moist mucus membranes Neck: supple Lungs: clear to auscultation bilaterally Heart: regular rate and rhythm, no murmurs Abd: soft, non-tender, non-distended Ext: no edema Skin: warm/well-perfused Neuro: alert and oriented x3, no focal findings Psych: appropriate affect DS: Data Data Completed and Pending Completed studies during hospitalization [Text1]: Laboratory Results WBC 9.4 X10*3/uL (4.8-10.8) 09/17/24 06:52 RBC 3.82 X10*6/uL (4.20-5.50) L 09/17/24 06:52 Hgb 13.5 g/dl (12.0-16.0) 09/17/24 06:52 Hct 38.0 % (37.0-47.0) 09/17/24 06:52 MCV 99.5 fL (80.0-98.0) H 09/17/24 06:52 MCH 35.3 pg (27.0-33.0) H 09/17/24 06:52 MCHC 35.5 g/dl (31.0-35.0) H 09/17/24 06:52 RDW 12.2 % (11.0-16.0) 09/17/24 06:52 Plt Count 315 X10*3/uL (160-400) 09/17/24 06:52 MPV 9.8 fL (9.4-12.3) 09/17/24 06:52 Immature Gran % (Auto) 0.4 % (0.0-0.4) 09/17/24 06:52 Neut % (Auto) 71.5 % (45-73) 09/17/24 06:52 Lymph % (Auto) 20.1 % (20-40) 09/17/24 06:52 Carter % (Auto) 6.4 % (2-11) 09/17/24 06:52 Eos % (Auto) 1.0 % (0-4) 09/17/24 06:52 Baso % (Auto) 0.6 % (0-2) 09/17/24 06:52 Lymph # (Auto) 1.9 X10*3/uL (1.2-4.9) 09/17/24 06:52 Carter # (Auto) 0.6 X10*3/uL (0.1-1.2) 09/17/24 06:52 Eos # (Auto) 0.1 X10*3/uL (0.0-0.4) 09/17/24 06:52 Baso # (Auto) 0.1 X10*3/uL (0.0-0.2) 09/17/24 06:52 Abs Immat Gran (auto) 0.04 X10*3/uL (0.00-0.03) H 09/17/24 06:52 Absolute Neuts (auto) 6.7 x10*3/uL (2.0-8.3) 09/17/24 06:52 Absolute Nucleated RBC 0.000 X10*3/uL (0.0-0.012) 09/17/24 06:52 Nucleated RBC % (auto) 0.0 /100WBC (0.0-0.2) 09/17/24 06:52 VBG pH 7.47 (7.32-7.43) H 09/16/24 17:01 VBG pCO2 47 mmHg 09/16/24 17:01 VBG pO2 58 mmHg 09/16/24 17:01 VBG HCO3 35 mmol/L (22-26) H 09/16/24 17:01 VBG O2 Saturation 85.0 % 09/16/24 17:01 VBG Base Excess 10.5 mmol/L 09/16/24 17:01 Sodium 143 mmol/L (135-145) 09/17/24 06:52 Potassium 3.1 mmol/L (3.3-5.1) L 09/17/24 06:52 Chloride 104 mmol/L (96-108) 09/17/24 06:52 Carbon Dioxide 29 mmol/L (22-29) 09/17/24 06:52 Anion Gap 13 (12-20) 09/17/24 06:52 BUN 4 mg/dL (9-16) L 09/17/24 06:52 Creatinine 0.52 mg/dL (0.5-1.4) 09/17/24 06:52 Estim Creat Clear Calc 106.6 09/17/24 06:52 Estimated GFR > 60 09/17/24 06:52 Random Glucose 87 mg/dL (60-115) 09/17/24 06:52 Calcium 8.5 mg/dL (8.4-10.2) 09/17/24 06:52 Magnesium 1.6 mg/dL (1.6-2.6) 09/17/24 06:52 Total Bilirubin 0.5 mg/dL (0.0-1.0) 09/16/24 10:30 Direct Bilirubin 0.2 mg/dL (0.0-0.5) 09/16/24 10:30 AST 28 U/L (5-31) 09/16/24 10:30 ALT 12 U/L (0-31) 09/16/24 10:30 Alkaline Phosphatase 76 U/L (39-117) 09/16/24 10:30 Troponin I High Sens < 2.7 ng/L (<3.5-17.0) 09/16/24 10:30 Total Protein 6.9 g/dL (6.5-8.0) 09/16/24 10:30 Albumin 3.9 g/dL (3.5-5.0) 09/16/24 10:30 TSH 0.65 uIU/mL (0.32-4.0) 09/16/24 10:30 Urine Color Yellow 09/16/24 13:18 Urine Appearance Clear 09/16/24 13:18 Urine pH 7.0 (5.0-9.0) 09/16/24 13:18 Ur Specific Mullan 1.010 (1.005-1.025) 09/16/24 13:18 Urine Protein Negative mg/dL (Neg-Trace) 09/16/24 13:18 Urine Glucose (UA) Negative mg/dL (Negative) 09/16/24 13:18 Urine Ketones Negative mg/dL (Negative) 09/16/24 13:18 Urine Blood Negative (Negative) 09/16/24 13:18 Urine Nitrite Negative (Negative) 09/16/24 13:18 Ur Leukocyte Esterase Trace (Negative) H 09/16/24 13:18 Urine RBC 0-2 /HPF (0-2) 09/16/24 13:18 Urine WBC 0-5 /HPF (0-5) 09/16/24 13:18 Ur Squamous Epith Cells 6-10 /HPF (0-2) 09/16/24 13:18 Urine Bacteria Trace (None Seen) 09/16/24 13:18 Hyaline Casts 0-2 /LPF (0-2) 09/16/24 13:18 Ur Random Potassium 11.7 mmol/L 09/16/24 13:18 Urine Opiates Screen Not Detected (Not Detect) 09/16/24 13:18 Ur Buprenorphine Scrn Not Detected ng/mL (Not Detect) 09/16/24 13:18 Ur Oxycodone Screen Not Detected ng/mL (Not Detect) 09/16/24 13:18 Urine Methadone Screen Not Detected ng/mL (Not Detect) 09/16/24 13:18 Urine Fentanyl Screen Not Detected (Not Detect) 09/16/24 13:18 Ur Barbiturates Screen Not Detected (Not Detect) 09/16/24 13:18 Ur Phencyclidine Scrn Not Detected (Not Detect) 09/16/24 13:18 Ur Amphetamines Screen Not Detected (Not Detect) 09/16/24 13:18 U Benzodiazepines Scrn Not Detected (Not Detect) 09/16/24 13:18 Urine Cocaine Screen POSITIVE (Not Detect) H 09/16/24 13:18 U Marijuana (THC) Screen POSITIVE (Not Detect) H 09/16/24 13:18 Ethyl Alcohol 59 mg/dL 09/16/24 10:30 Influenza Type A (PCR) NEGATIVE (Negative) 09/16/24 10:30 Influenza Type B (PCR) NEGATIVE (Negative) 09/16/24 10:30 RSV RNA Qual (PCR) NEGATIVE (Negative) 09/16/24 10:30 SARS-CoV-2 RNA (RT-PCR) NEGATIVE (Negative) 09/16/24 10:[address] 09/16/24 09:46 IMPRESSION: No acute intracranial abnormality. Electronically signed by: Hector Dempsey MD 09/16/2024 11:19 AM EDT RP Discharge Plan Discharge Anticipated Discharge Date/Time: 09/17/24 12:49 Patient Disposition: Home Health Service Discharge Diagnosis: hypokalemia hypomagnesemia neuropathy probably alcoholic alcohol use disorder Referrals: [facility] [Outside] - 1 Week Nancy Houston MD [Primary Care Provider] - 1 Week Discharge Medications: New magnesium oxide 400 mg (241.3 mg magnesium) Tablet 400 mg PO BID Qty: 60 0RF folic acid 1 mg Tablet 1 mg PO DAILY Qty: 30 0RF thiamine mononitrate (vit B1) 100 mg Tablet 100 mg PO DAILY Qty: 30 0RF potassium chloride 20 mEq packet 20 meq PO BID Qty: 60 0RF Continued levothyroxine 75 mcg tablet 75 mcg PO DAILY@0600 Rx Instructions: Tablets diclofenac sodium 3 % gel 1 appl topical BID PRN (Reason: Pain) buspirone 10 mg tablet 10 mg PO TID PRN (Reason: Anxiety) omeprazole 20 mg capsule,delayed release(DR/EC) 20 mg PO BID@0630,1630 amlodipine 5 mg tablet 5 mg PO DAILY 90 Days Qty: 90 3RF atorvastatin 10 mg tablet 10 mg PO DAILY 90 Days Qty: 90 3RF irbesartan 75 mg tablet 75 mg PO DAILY 90 Days Qty: 90 1RF Discharge Orders: Discharge Order (Routine); Ordered 09/17/24 Ordered By: Omar Haynes Diet: Advance to usual diet Activity on Discharge: As tolerated Stand Alone Forms: Patient Portal Discharge page Print Language: Spanish Other Ambulatory Orders: Basic Metabolic Panel (Routine) Timeframe: 1 Week Facility: [facility] - Location: Laboratory Ordered By: Omar Haynes Magnesium (Routine) Timeframe: 1 Week Facility: [facility] - Location: Laboratory Ordered By: Omar Haynes Care Plan Goals: sobriety Health Concerns: hypokalemia hypomagnesemia neuropathy probably alcoholic alcohol use disorder Plan of Treatment: avoid alcohol take potassium and magnesium as prescribed take thiamine and folate as prescribed check in 1 week: basic metabolic panel, magnesium Please follow up with your primary care doctor within 1 week. Return to the hospital if you experience recurrent or worsening symptoms. Assessment: See Discharge Summary.
[2024-09-17 11:08] VITALS: BP 142/80; PULSE 80; O2SAT 96
[2024-09-17 11:09] VITALS: BMI 26.0
[2024-09-17 11:38] LABS: Anion Gap 15 (12-20); Blood Urea Nitrogen 4 mg/dL (9-16); Calcium 9.2 mg/dL (8.4-10.2); Carbon Dioxide 28 mmol/L (22-29); Chloride 101 mmol/L (96-108); Creatinine Clr Calc Pharmacy 100.7; Estimated Glomerular Filt Rate > 60; Glucose Random 98 mg/dL (60-115); Magnesium 1.6 mg/dL (1.6-2.6); Potassium 3.4 mmol/L (3.3-5.1); Sodium 141 mmol/L (135-145)
[2024-09-17 11:41] VITALS: BP 155/73; PULSE 83; RESP 18; TEMP 36.5; O2SAT 92
--- NOTE | 2024-09-17 11:44 | W.MHC.F2F ---
Service Date Service Date: 09/17/24 Encounter Date of encounter: 09/17/24 Reasons for Services Signs and symptoms assessed: home PT Reason for physical therapy: home safety and mobility, therapeutic exercises, restore joint function, gait/transfer training, assess need for DME, ADL training and energy conservation Overseeing Care: Nancy Houston Homebound: Leaving the home is medically contraindicated at this time without the asist of a device and/or another person due th the listed conditions above and below. Reason homebound: unsteady gait / fall risk and pain with ambulation Homebound supporting statement: attach PT maria isabel 09/17/24 Certification: Based on the above findings, I certify that this patient is confined to the home and needs intermittent nursing home care, physical therapy and/or speech therapy, or continues to need occupational therapy. The patient is under my care, and I have initiated the establishment of the plan of care. The patient will be followed by a physician who will periodically review the plan of care. Time Spent With Patient Time: Total time managing care of this patient today ____ minutes.
[2024-09-17] MEDS: amLODIPine Besylate 5 MG TABLET PO (11:53)
[2024-09-17] MEDS: Magnesium Oxide 400 MG TABLET PO (11:53)
[2024-09-17] MEDS: Folic Acid 1 MG TABLET PO (11:53)
[2024-09-17] MEDS: Atorvastatin Calcium 10 MG TABLET PO (11:53)
[2024-09-17] MEDS: Valsartan 40 MG TABLET PO (11:53)
[2024-09-17] MEDS: Potassium Chloride ER 20 MEQ TAB.ER.PRT 40 MEQ PO (11:53)
[2024-09-17] MEDS: Thiamine HCL 100 MG TABLET PO (11:53)
[2024-09-17] MEDS: 0.9 % Sodium Chloride Flush 3 ML SYRINGE IVFLUSH (11:54)
--- NOTE | 2024-09-17 12:21 | MHC.RECOVRN ---
Met with pt in - to discuss ongoing alcohol use, recovery supports, and other resources. Written materials on harm reduction, recovery coaching, CSS, TSS, and IOP programs provided for pt to review. Pt declined outpatient [facility] appointment for treatment of her AUD. Pt declined to meet and discuss with Addiction Medicine provider about MAT initiation. Pt provided with Recovery Support Team contact information if questions or concerns arise. Denies any other questions or concerns at this time. Discussed with Kacie Pillai NP.
--- NOTE | 2024-09-17 12:50 | MHC.CM.PN ---
Patient has been medically cleared for dc to home today, with services. A referral has been made to [facility], who has been made aware of today's dc.
== END 2024-09-17 14:18 | disposition home health service (06) | DRG 641 ==
LOC: HO.ED 11:51 → HO.EDOVER 12:41 → HO.IMC 09-17 07:31
PROVIDERS: Physician Assistant; Admitting Provider Internal Medicine; Emergency Provider Emergency Medicine; PCP Internal Medicine; Visit Provider Family Medicine
DX: E87.6 Hypokalemia (principal); F17.210 Nicotine dependence, cigarettes, uncomplicated; Z71.6 Tobacco abuse counseling; Y90.2 Blood alcohol level of 40-59 mg/100 ml; E83.42 Hypomagnesemia; G62.1 Alcoholic polyneuropathy; F10.10 Alcohol abuse, uncomplicated; I10 Essential (primary) hypertension; E03.9 Hypothyroidism, unspecified; E78.5 Hyperlipidemia, unspecified; Z20.822 Contact with and (suspected) exposure to COVID-19; Z79.890 Hormone replacement therapy; Z79.899 Other long term (current) drug therapy
CPT/HCPCS: 0241U; 36415; 70450; 80048; 80053; 80076; 80307; 81001; 82607; 82728; 82803; 83735; 84133; 84443; 84484; 85025; 93005; 97161; 99212; 99285; J3475; J3480; J7120; S9485

== ENCOUNTER → 2024-09-16 10:07 | Outpatient (BNV) | payer MEDICARE, MEDICAID, SELFPAY | PROVIDERS: Emergency Provider Emergency Medicine; PCP Internal Medicine; Visit Provider Radiology Diagnostic Radiology | DX: R42 Dizziness and giddiness (principal) | CPT/HCPCS: 70450 ==

== ENCOUNTER → 2024-09-16 10:08 | Outpatient (BNV) | payer MEDICARE, MEDICAID, SELFPAY | PROVIDERS: Emergency Provider Emergency Medicine; PCP Internal Medicine; Visit Provider Internal Medicine Cardiovascular Disease | DX: E87.6 Hypokalemia (principal) | CPT/HCPCS: 93010 ==

== ENCOUNTER → 2024-09-16 12:41 | Outpatient (BNV) | payer MEDICARE, MEDICAID, SELFPAY | PROVIDERS: Admitting Provider Internal Medicine; Emergency Provider Emergency Medicine; PCP Internal Medicine; Visit Provider Internal Medicine | DX: R42 Dizziness and giddiness (principal); E87.6 Hypokalemia; F10.90 Alcohol use, unspecified, uncomplicated; E83.42 Hypomagnesemia | CPT/HCPCS: 99223; 99239; G0180 ==

== ENCOUNTER 2024-10-22 09:57 | Outpatient (REF) | payer MEDICARE, MEDICAID, SELFPAY ==
--- OUTSIDE RECORDS SUMMARY | 2024-10-22 10:15 | XMS_ITS | Clinical Summary ---
Author Organization [facility] Address [address] [place] [address] Care Team Providers Care Retail Receiving Clerk Name Role Phone Nancy Houston MD Primary Care Provider [phone] Social History Tobacco Use Types Packs/Day Years [...] 1 - PCV) 11/13/2023 Influenza Vaccine (#1) 2024 RSV Adult > 60+ Yrs or [...] age to complete this topic Care Teams Retail Receiving Clerk Relationship Specialty Start Date End Date Nancy Houston MD [address] [facility] [place] [id number] PCP - General Internal Medicine 10/10/20
[2024-10-22 13:31] LABS: Anion Gap 14 (12-20); Blood Urea Nitrogen 15 mg/dL (9-16); Calcium 9.6 mg/dL (8.4-10.2); Carbon Dioxide 25 mmol/L (22-29); Chloride 106 mmol/L (96-108); Estimated Glomerular Filt Rate 54; Magnesium 2.1 mg/dL (1.6-2.6); Potassium 4.4 mmol/L (3.3-5.1); Sodium 141 mmol/L (135-145)
== END 2024-10-22 09:58 | disposition home or self-care (01) ==
LOC: HO.HMGCLDS 09:57
PROVIDERS: Family Medicine; PCP Internal Medicine; Visit Provider Internal Medicine
DX: E83.42 Hypomagnesemia (principal); E87.6 Hypokalemia
CPT/HCPCS: 36415; 80048; 83735

== ENCOUNTER 2024-11-10 14:14 | Emergency (ER) | payer MEDICARE, MEDICAID, SELFPAY ==
--- NOTE | ~2024-11-10 | CT_ITS ---
EXAMINATION: CT ANGIOGRAM CHEST CLINICAL INFORMATION: The right chest pain. Dyspnea COMPARISON: None available. TECHNIQUE: Multiple axial images were obtained through the chest after the administration of 65 mL of Omnipaque 350 intravenous contrast. Extensive vascular post-processing including two-dimensional and three-dimensional reformatted images were created and reviewed on an independent workstation. This CT examination was performed using dose optimization techniques as appropriate, variously including the following: *Automated exposure control *Adjustment of mA and/or kV according to patient size (this includes techniques or standardized protocols for targeted exams where dose is matched to indication/reason for exam; i.e. extremities or head) *Use of iterative reconstruction technique DLP: 100 mg. FINDINGS: Vascular: There is good opacification of pulmonary artery and its branches without intraluminal filling defect or narrowing. The thoracic aorta is of normal caliber. Heart size is normal. No pericardial effusion seen. A normal three-vessel branching of aortic arch is noted. Nonvascular: Central trachea and the bronchi are widely patent. Thyroid lobes are symmetrical and normal. No abnormal size mediastinal or hilar lymphadenopathy seen. There are scattered calcified subcarinal lymph nodes. Mild emphysematous changes of lungs are noted without acute process. There are scattered 2 mm pulmonary nodules left upper lobe image 14/6, subpleural 2 mm nodule left upper lobe image 15/6, 2 mm nodule right upper lobe image 22/6, 3 mm nodule left lower lobe image 23/6, 5.7 mm groundglass nodule in right upper lobe image 30/6. 4 mm calcified nodule right lower lobe axial image 30/6. There is no pleural effusion, thickening or calcified pleural plaques. The axillae and the chest wall is unremarkable. Bone windows reveal no gross bony abnormality except for mild spondylosis. Visualized liver, spleen, pancreas and gallbladder appears unremarkable. Adrenal glands unremarkable. CT/CT angio chest PE protocol IMPRESSION: No evidence of PE. No evidence of aortic aneurysm or dissection. There are calcified nodules in the subcarinal space. There are several 2 mm small nodules in both lungs and a calcified nodule in the right lower lobe. Fleischner guidelines were followed. Electronically signed by: Brandon Mendiola MD 11/10/2024 04:55 PM EDT
--- NOTE | ~2024-11-10 | XR_ITS ---
EXAMINATION: XR CHEST CLINICAL INFORMATION: sob, cugh COMPARISON: Chest radiograph on July 14, 2020 TECHNIQUE: 2 views of the chest were obtained. FINDINGS: No focal lung consolidation or evidence of pulmonary edema. Known chronic granuloma in the right lower lung. No pneumothorax or pleural effusion. Unchanged cardiomediastinal silhouette. Osseous structures are intact. XR/XR chest 2V IMPRESSION: No acute cardiopulmonary process. Electronically signed by: Narcisa Ring MD 11/10/2024 03:19 PM EDT
--- NOTE | 2024-11-10 14:16 | ECG_ITS ---
Test Reason : CHEST PAIN Blood Pressure : */* mmHG Vent. Rate : 81 BPM Atrial Rate : 81 BPM P-R Int : 130 ms QRS Dur : 74 ms QT Int : 404 ms P-R-T Axes : 69 35 54 degrees QTcB Int : 469 ms Normal sinus rhythm Normal ECG When compared with ECG of 16-Sep-2024 10:05, Criteria for Septal infarct are no longer Present Nonspecific T wave abnormality no longer evident in Lateral leads Referred By: Generic ED Physician Electronically Signed By: ALICIA BRENNAN
[2024-11-10 14:25] VITALS: BP 143/85; PULSE 80; RESP 16; TEMP 36.6; O2SAT 100; BMI 24.6
--- NOTE | 2024-11-10 14:25 | ED.GENADULT ---
HPI - General Adult General Chief complaint: Arrhythmia/Palpitations Stated complaint: Potasium def, SOB, CP Time Seen by Provider: 11/10/24 14:55 Source: patient and old records reviewed Mode of arrival: ambulatory Limitations: no limitations History of Present Illness ED Provider: KOMAL BESS narrative: 63 yo female with PMH of ETOH use disorder no prior withdrawal seizures drinks hard liquor but does not quantify - last drink 3 days ago, hypokalemia, hypomagnesemia, prolonged qT inverval, hypothyroidism who reports she c/o dyspnea and L sided chest aching x few days. No radiation of pain. No cough, no fevers, no sputum production. She is a smoker. NO hx of asthma. She has no recent travel, sick contacts, hormone use. She states she thought it was her postassium but she has not had dyspnea with it before. She did vomit the other day. No diarrhea no abdominal pain. MD complaint: dyspnea, not feeling well Onset (ago): day(s) (3) Location: chest Radiation: non-radiation Severity: moderate Quality: aching Pain Consistency: intermittent Relieving factors: none Exacerbating factors: none Associated symptoms: loss of appetite and nausea/vomiting Related Data Home Medications ?Medication ?Instructions ?Recorded ?Confirmed buspirone 10 mg tablet 10 mg PO TID PRN Anxiety 09/16/24 09/21/24 diclofenac sodium 3 % topical gel 1 appl topical BID PRN Pain 09/16/24 09/21/24 omeprazole 20 mg capsule,delayed 20 mg PO BID@0630,1630 09/16/24 09/21/24 release Previous Rx's ?Medication ?Instructions ?Recorded amlodipine 5 mg tablet 5 mg PO DAILY 90 days #90 tabs 06/01/24 atorvastatin 10 mg tablet 10 mg PO DAILY 90 days #90 tabs 06/01/24 irbesartan 75 mg tablet 75 mg PO DAILY 90 days #90 tabs 06/01/24 folic acid 1 mg tablet 1 mg PO DAILY #30 tabs 09/17/24 magnesium oxide 400 mg (241.3 mg 400 mg PO BID #60 tabs 09/17/24 magnesium) tablet potassium chloride 20 mEq oral 20 meq PO BID #60 ea 09/17/24 packet thiamine mononitrate (vit B1) 100 100 mg PO DAILY #30 tabs 09/17/24 mg tablet levothyroxine 75 mcg tablet 75 mcg PO DAILY@0600 #90 tabs 09/28/24 albuterol sulfate 90 mcg/actuation 2 puff inhalation QID PRN 11/10/24 aerosol inhaler shortness of breath or wheezing #6.7 grams Allergies Allergy/AdvReac Type Severity Reaction Status Date / Time No Known Allergies (No Known Allergy Verified 11/10/24 14:27 Allergies*) Review of Systems Review of Systems: Constitutional : No Fever, No Chills ENT/Mouth : No sore throat, No Rhinorrhea, No Swallowing Difficulty Eyes: No Eye Pain, No Swelling, No Redness Cardiovascular : pos Chest Pain, positive SOB, No Orthopnea, no Edema Respiratory : No Cough, No Sputum, No Wheezing, positive dyspnea Gastrointestinal : No Nausea, No Vomiting, No Diarrhea, No abdominal Pain, No Hematochezia, No Melena Genitourinary : No Dysuria, No Urinary Frequency, No Hematuria Musculoskeletal : No joint pain, No Myalgias Skin : No Skin Lesions, No rash Neuro : No Weakness, No Numbness, No Dizziness, No Headache All other systems reviewed and are negative [facility] Past Medical History Medical History GERD (gastroesophageal reflux disease) High blood pressure High blood cholesterol Surgical History No pertinent past surgical history Family History Family History Mother Colon cancer S/P triple vessel bypass Father Prostate cancer Other Mental health disorder Social History Social History Household Members: Spouse Housing: Other Alcohol intake: current Alcohol intake frequency: 3 or more drinks per day Alcohol type: hard liquor Comment: 1-2 drinks per day. Varies from hard liquor + beer. Patient Tobacco Use Status: Current everyday Tobacco user Tobacco use type: Cigarette Cigarettes Per Day: 7 Years Smoked: 52 Smoked in Last 30 Days: Yes e-Cigarette/Vaping Use: Currently Using Use of substances other than those prescribed or required for medical reasons: Yes Substance Use Type: Marijuana Substance Use Frequency: Monthly Advance Directives: No Advance Directives Information Provided: Yes Do you have a plan to hurt others: No Plan service: No Current occupational status: disabled Cognitive needs: No Hearing needs: No Vision needs: No Physical Exam ED Vital Signs: Vital Signs - 24 hr 11/10/24 14:25 11/10/24 15:26 11/10/24 15:29 Temperature 98 F Pulse Rate 80 74 72 Respiratory Rate 16 15 16 Blood Pressure 143/85 H 120/55 L Pulse Oximetry 100 98 Oxygen Delivery Method Room Air Room Air BMI result Body Mass Index 24.6 Appearance: Alert. Oriented X3. No acute distress. Eyes: Pupils equal, round and reactive to light. ENT: Pharynx normal. tongue fasciculations noted Neck: Normal inspection. Neck supple. CVS: Normal heart rate and rhythm. Pulses normal. Respiratory: No respiratory distress but appears tachypneic at rest. Breath sounds diminished Abdomen: Soft and nontender. Skin: Skin warm and dry. Normal skin color. Extremities: No lower extremity edema. Neuro: Oriented X 3. No motor deficit. No sensory deficit. slight tremors at rest Course Course Course Narrative: This is a Rapid Medical Examination (RME) performed by Karlo Dorsey PA-C in triage. Full HPI, ROS, assessment and treatment plan per primary provider in the Main ED. Hx: 63 yo F hx of hypomagnesium, hypokalemia, etoh use disorder, anemia, GERD, prolonged QT, hypothyroidism, HTN here for eval of chest pain, SOB, cough, with concerns that her potassium may be low. does not have PCP follow up until december. reports decreased PO intake over the last week. feels anxious, jittery. Plan: labs, ekg, viral swabs, CXR Reevaluation(s) Reevaluation #1: feels better after neb therapy Medications Administered Discontinued Medications Generic Name Dose Route Start Last Admin Trade Name Freq PRN Reason Stop Dose Admin Albuterol/Ipratropium 3 ml 11/10/24 15:24 11/10/24 15:37 Albuterol/Iprat 2.5/0.5mg 3 Ml Ampul.Neb INHALE 11/10/24 15:25 3 ml ONCE ONE Administration Diazepam 2.5 mg 11/10/24 15:22 11/10/24 15:34 Diazepam 10 Mg/2 Ml Cartridge IVPUSH 11/10/24 15:23 2.5 mg STAT STA Administration Thiamine HCl 200 mg/ Sodium 102 mls @ 204 mls/hr 11/10/24 15:04 11/10/24 16:46 Chloride IV 11/10/24 15:33 Infused ONCE ONE Infusion Magnesium Sulfate 2 gm in 50 mls @ 25 mls/hr 11/10/24 15:05 11/10/24 16:47 Magnesium Sulfate/H2o IV 11/10/24 17:04 25 mls/hr ONCE ONE Administration Iohexol 100 ml 11/10/24 16:10 11/10/24 16:10 Iohexol 350 Mg/Ml 100 Ml Infus..Btl IV 11/10/24 16:11 65 ml ONCE ONE Administration Potassium Chloride 40 meq 11/10/24 15:10 11/10/24 15:46 Potassium Chloride Packet 20 Meq Packet PO 11/10/24 15:11 40 meq ONCE ONE Administration Medical Decision Making Medical Decision Making [facility] Narrative: 63 yo female with PMH of ETOH use disorder no prior withdrawal seizures last drink 3 days ago, hypokalemia, hypomagnesemia, prolonged qT inverval, hypothyroidism here with dyspnea and chest pains. No infectious symptoms, no edema on CXR, no risk factors for VTE but she appears diminished and tachypneic. Will obtain labs, CTA for PE given her tachypnea and no other signs to suggest CHF/infection. Will order troponin and start on IV valium, thiamine, magnesium. She has mild tremors and I suspect a component of withdrawal. Differential Diagnosis Differential Diagnoses: The differential diagnosis associated with the presentation includes lyte abnormality, ACS low prob, VTE moderate to high prob, ETOH withdrawal. Admission/Observation Consideration of admission/observation: Escalation of care including admission/observation considered feels better work up reassuring stable for DC no tremors looks good Lab Data [facility] Lab Attestation statement: I reviewed the patient's lab results. 11/10/24 14:45 11/10/24 14:45 Labs: Lab Results 11/10/24 Range/Units 14:45 WBC 10.3 (4.8-10.8) X10*3/uL RBC 3.83 L (4.20-5.50) X10*6/uL Hgb 12.8 (12.0-16.0) g/dl Hct 36.3 L (37.0-47.0) % MCV 94.8 (80.0-98.0) fL MCH 33.4 H (27.0-33.0) pg MCHC 35.3 H (31.0-35.0) g/dl RDW 12.3 (11.0-16.0) % Plt Count 298 (160-400) X10*3/uL MPV 9.6 (9.4-12.3) fL Immature Gran % (Auto) 0.5 H (0.0-0.4) % Neut % (Auto) 66.9 (45-73) % Lymph % (Auto) 23.3 (20-40) % [place] % (Auto) 7.7 (2-11) % Eos % (Auto) 1.0 (0-4) % Baso % (Auto) 0.6 (0-2) % Lymph # (Auto) 2.4 (1.2-4.9) X10*3/uL [place] # (Auto) 0.8 (0.1-1.2) X10*3/uL Eos # (Auto) 0.1 (0.0-0.4) X10*3/uL Baso # (Auto) 0.1 (0.0-0.2) X10*3/uL Abs Immat Gran (auto) 0.05 H (0.00-0.03) X10*3/uL Absolute Neuts (auto) 6.9 (2.0-8.3) x10*3/uL Absolute Nucleated RBC 0.000 (0.0-0.012) X10*3/uL Nucleated RBC % (auto) 0.0 (0.0-0.2) /100WBC Sodium 140 (135-145) mmol/L Potassium 3.3 D (3.3-5.1) mmol/L Chloride 102 (96-108) mmol/L Carbon Dioxide 26 (22-29) mmol/L Anion Gap 15 (12-20) BUN 9 (9-16) mg/dL Creatinine 0.83 (0.5-1.4) mg/dL Estim Creat Clear Calc 58.3 Estimated GFR > 60 Random Glucose 88 (60-115) mg/dL Calcium 9.6 (8.4-10.2) mg/dL Magnesium 1.8 (1.6-2.6) mg/dL Total Bilirubin 0.8 (0.0-1.0) mg/dL AST 34 H (5-31) U/L ALT 25 (0-31) U/L Alkaline Phosphatase 68 (39-117) U/L Troponin I High Sens < 2.7 (<3.5-17.0) ng/L B-Natriuretic Peptide < 10 (<100) pg/mL Total Protein 7.5 (6.5-8.0) g/dL Albumin 4.5 (3.5-5.0) g/dL Lipase 14 (8-78) U/L Ethyl Alcohol < 10 mg/dL Influenza Type A (PCR) NEGATIVE (Negative) Influenza Type B (PCR) NEGATIVE (Negative) RSV RNA Qual (PCR) NEGATIVE (Negative) SARS-CoV-2 RNA (RT-PCR) NEGATIVE (Negative) Independent Interpretation I performed an independent interpretation of an: EKG, Plain X-Ray (normal) and CT Scan Interpretation: Rate: 81 Rhythm: NSR [place]: normal Normal P waves. Normal JOANNA. Normal QRS complex. ST T wave : inverted t wave V1, no ALISE qTC: 469 prior studies: no sig change from prior The study has been interpreted contemporaneously by me. . Radiology Impression Discussion of test interpretation with radiology: I have reviewed the radiologist's reading. External Record Review External record reviewed: Inpatient record and Outpatient record Prescription Management I considered prescription management with: Other Critical Care Time Critical Care Time Critical Care Time: Yes Total Critical Care Time: 35 Attestation: IV magnesium, IV valium for ETOH use disorder, review of records, review of labs, review of imaging, repeat assessments I attest to this time spent taking care of the patient Discharge Plan Discharge Clinical Impression: Acute dyspnea, Acute hypokalemia, Alcohol use disorder Patient Disposition: Home, Self-Care Instructions: Hypokalemia (ED), Dyspnea (ED), Alcohol Use Disorder (ED) Additional Instructions: mildly low potassium you were given repletion in the ED along with vitamins your labs and EKG were reassuring for your heart a CT scan of your chest showed no fluid around the heart, no pneumonia, no blood clots you have small nodules noted that are normal at this time but given your smoking history please repeat CT scan in 6 months return to our ED for any worsening symptoms or concerns follow up with your doctor If you would like to cut down or stop your alcohol use please consider calling our outpatient Addiction Treatment office:? [facility] (M-F [id number]) [address] You have also been given a list of treatment providers in the area that can assist as well.? If you experience seizures, vomiting blood, black stools, falls, severe headache, chest pain, fevers, trouble breathing, hallucinations or any other concerns you need to call 911 or seek immediate care. Please stay hydrated. Prescriptions: New albuterol sulfate 90 mcg/actuation HFA aerosol inhaler 2 puff inhalation QID PRN (Reason: shortness of breath or wheezing) Qty: 6.7 0RF No Action levothyroxine 75 mcg tablet 75 mcg PO DAILY@0600 Qty: 90 0RF Rx Instructions: Tablets diclofenac sodium 3 % gel 1 appl topical BID PRN (Reason: Pain) buspirone 10 mg tablet 10 mg PO TID PRN (Reason: Anxiety) omeprazole 20 mg capsule,delayed release(DR/EC) 20 mg PO BID@0630,1630 magnesium oxide 400 mg (241.3 mg magnesium) Tablet 400 mg PO BID Qty: 60 0RF folic acid 1 mg Tablet 1 mg PO DAILY Qty: 30 0RF thiamine mononitrate (vit B1) 100 mg Tablet 100 mg PO DAILY Qty: 30 0RF potassium chloride 20 mEq packet 20 meq PO BID Qty: 60 0RF amlodipine 5 mg tablet 5 mg PO DAILY 90 Days Qty: 90 3RF atorvastatin 10 mg tablet 10 mg PO DAILY 90 Days Qty: 90 3RF irbesartan 75 mg tablet 75 mg PO DAILY 90 Days Qty: 90 1RF Print Language: Maltese
[2024-11-10 14:51] LABS: MANUAL DIFF FLAG NO
[2024-11-10 14:52] LABS: Hematocrit 36.3 % (37.0-47.0); Hemoglobin 12.8 g/dl (12.0-16.0); Imm Gran Abs Auto 0.05 X10*3/uL (0.00-0.03); Imm Gran Pct Auto 0.5 % (0.0-0.4); Lymphocytes Absolute Auto 2.4 X10*3/uL (1.2-4.9); Mean Corpuscular HGB Conc 35.3 g/dl (31.0-35.0); Mean Corpuscular Hemoglobin 33.4 pg (27.0-33.0); Mean Corpuscular Volume 94.8 fL (80.0-98.0); NRBC Abs Auto 0.000 X10*3/uL (0.0-0.012); NRBC Pct Auto 0.0 /100WBC (0.0-0.2); Platelet Count 298 X10*3/uL (160-400); Red Blood Count 3.83 X10*6/uL (4.20-5.50); White Blood Count 10.3 X10*3/uL (4.8-10.8)
[2024-11-10 15:08] LABS: Alanine Aminotransferase 25 U/L (0-31); Albumin Level 4.5 g/dL (3.5-5.0); Alkaline Phosphatase 68 U/L (39-117); Anion Gap 15 (12-20); Aspartate Amino Transferase 34 U/L (5-31); Blood Urea Nitrogen 9 mg/dL (9-16); Calcium 9.6 mg/dL (8.4-10.2); Carbon Dioxide 26 mmol/L (22-29); Chloride 102 mmol/L (96-108); Creatinine Clr Calc Pharmacy 58.3; Estimated Glomerular Filt Rate > 60; Lipase 14 U/L (8-78); Magnesium 1.8 mg/dL (1.6-2.6); Potassium 3.3 mmol/L (3.3-5.1); Sodium 140 mmol/L (135-145); Total Protein 7.5 g/dL (6.5-8.0)
[2024-11-10 15:16] LABS: Troponin-I High Sensitivity < 2.7 ng/L (<3.5-17.0)
[2024-11-10 15:26] VITALS: BP 120/55; PULSE 74; RESP 15; O2SAT 98
[2024-11-10 15:29] VITALS: PULSE 72; RESP 16; O2SAT 95
[2024-11-10 15:29] LABS: Resp Syncy Virus RNA Qual PCR NEGATIVE (Negative); SARS COV2 PCR INHOUSE NEGATIVE (Negative)
[2024-11-10] MEDS: diazePAM 10 MG/2 ML CARTRIDGE 2.5 MG IVPUSH (15:34)
[2024-11-10] MEDS: Albuterol/Iprat 2.5/0.5MG 3 ML AMPUL.NEB INHALE (15:37)
[2024-11-10] MEDS: Thiamine HCL 200 MG in 0.9 % Sodium Chloride 100 ML 204 MG IV (15:43)
[2024-11-10] MEDS: Potassium Chloride Packet 20 MEQ PACKET 40 MEQ PO (15:46)
[2024-11-10] MEDS: iohexoL 350 MG/ML 100 ML INFUS..BTL IV (16:10)
--- OUTSIDE RECORDS SUMMARY | 2024-11-10 16:21 | XMS_ITS | Clinical Summary ---
Author Organization [facility] Address [address] [place] [address] Care Team Providers Care Bar Host/Hostess Name Role Phone Nancy Houston MD Primary Care Provider [phone] Social History Tobacco Use Types Packs/Day Years [...] age to complete this topic Care Teams Bar Host/Hostess Relationship Specialty Start Date End Date Nancy Houston MD [address] [facility] [place] [id number] PCP - General Internal Medicine 10/10/20
[2024-11-10 16:39] LABS: B Type Natriuretic Peptide < 10 pg/mL (<100)
[2024-11-10] MEDS: Magnesium Sulfate/H2O 2 GM/50 ML PIGGYBACK IV (16:47)
[2024-11-10 20:52] VITALS: BP 128/65; PULSE 72; RESP 16; TEMP 37.1; O2SAT 95
== END 2024-11-10 18:30 | disposition home or self-care (01) ==
PROVIDERS: Physician Assistant Medical; Emergency Provider Emergency Medicine; PCP Internal Medicine
DX: I49.9 Cardiac arrhythmia, unspecified (principal); R00.2 Palpitations; E87.6 Hypokalemia; F10.90 Alcohol use, unspecified, uncomplicated; Y90.0 Blood alcohol level of less than 20 mg/100 ml; R06.02 Shortness of breath; R07.89 Other chest pain; R11.2 Nausea with vomiting, unspecified; F17.210 Nicotine dependence, cigarettes, uncomplicated; Z79.899 Other long term (current) drug therapy; Z03.818 Encounter for observation for suspected exposure to other biological agents ruled out
CPT/HCPCS: 71046; 71275; 80053; 80307; 83690; 83735; 83880; 84484; 85025; 87637; 93005; 94640; 96365; 96366; 96367; 96375; 99285; 99291; J3360; J3411; J3475; Q9967

== ENCOUNTER → 2024-11-10 14:16 | Outpatient (BNV) | payer MEDICARE, MEDICAID, SELFPAY | PROVIDERS: Emergency Provider Emergency Medicine; PCP Internal Medicine; Visit Provider Internal Medicine | DX: R07.89 Other chest pain (principal) | CPT/HCPCS: 93010 ==

== ENCOUNTER → 2024-11-10 14:28 | Outpatient (BNV) | payer MEDICARE, MEDICAID, SELFPAY | PROVIDERS: Emergency Provider Emergency Medicine; PCP Internal Medicine; Visit Provider Radiology Body Imaging | DX: R91.1 Solitary pulmonary nodule (principal); R06.02 Shortness of breath | CPT/HCPCS: 71046; 71275 ==

== ENCOUNTER 2024-11-22 11:10 | Day surgery (SDC) | payer MEDICARE, MEDICAID, SELFPAY ==
--- OUTSIDE RECORDS SUMMARY | 2024-11-01 14:51 | XMS_ITS | Clinical Summary ---
Author Organization [facility] Address [address] [place] [address] Care Team Providers Care Electronic Heat Seal Operator Name Role Phone Nancy Houston MD Primary Care Provider [phone] Social History Tobacco Use Types Packs/Day Years [...] age to complete this topic Care Teams Electronic Heat Seal Operator Relationship Specialty Start Date End Date Nancy Houston MD [address] [facility] [place] [address] PCP - General Internal Medicine 10/10/20
[2024-11-18 14:11] VITALS: BMI 26.0
--- NOTE | 2024-11-19 10:19 | HO.ANESPROP2 ---
Documented by User: La Nena Graves NP 11/19/24 10:27 HPI - Anesthesia Eval Consult details Narrative: 64yo F for Upper Endoscopy and Colonoscopy ETOH use disorder [facility] ED 11/2024 with dyspnea, mild hypokalemia, acute ETOH - IV replacement, negative cardiopulmonary w/u PMFSH Active Problems Active Problems: All Active Problems Alcohol use disorder (Acute) Hypomagnesemia (Acute) Dizziness (Acute) Weakness of left lower extremity (Acute) Hypokalemia (Acute) Chronic GERD (Acute) Microcytic anemia (Acute) Constipation by delayed colonic transit (Acute) Hypokalemia (Acute) Colon cancer screening (Acute) Prolonged QT interval (Acute) Abnormal EKG (Acute) Left arm pain (Acute) Heartburn (Acute) Digital mucous cyst of finger of left hand (Acute) Other specified hypothyroidism (Acute) Abnormal skin growth (Acute) Dupuytren's disease of palm of left hand (Acute) Osteoarthritis of knees, bilateral (Acute) Carpal tunnel syndrome on right (Acute) B12 deficiency (Acute) FCR (flexor carpi radialis) tenosynovitis (Acute) Cubital tunnel syndrome on left (Acute) Bilateral hand numbness (Acute) Carpal tunnel syndrome on both sides (Acute) Ganglion cyst of volar aspect of wrist (Acute) Tobacco use (Acute) Cervical myelopathy (Acute) Elevated fasting blood sugar (Acute) Synovial cyst of right wrist (Acute) Right lumbar pain (Acute) Cervical spinal stenosis (Acute) Lipid disorder (Acute) Trigeminal neuralgia of left side of face (Acute) COVID-19 (Acute) Alcoholism (Acute) Paresthesias (Acute) Depression, major, recurrent (Acute) Vitamin D deficiency (Acute) Hypertension, essential (Acute) GERD (gastroesophageal reflux disease) (Acute) Past Medical History Medical History (Updated 11/18/24 @ 14:05 by Siena Hinojosa RN) Trigeminal neuralgia of left side of face Depression Cervical spinal stenosis Tobacco use disorder Osteoarthritis Alcohol use disorder GERD (gastroesophageal reflux disease) High blood pressure High blood cholesterol Family History Family History Mother Colon cancer S/P triple vessel bypass Father Prostate cancer Other Mental health disorder Surgical History Surgical History (Updated 11/18/24 @ 14:03 by Siena Hinojosa RN) History of carpal tunnel release Social History Social History Household Members: Spouse Housing: Other Alcohol intake: current Alcohol intake frequency: does not drink Alcohol type: hard liquor Comment: 1-2 drinks per day. Varies from hard liquor + beer. Patient Tobacco Use Status: Current everyday Tobacco user Tobacco use type: Cigarette Cigarettes Per Day: 7 Years Smoked: 52 e-Cigarette/Vaping Use: Currently Using Use of substances other than those prescribed or required for medical reasons: No Substance Use Type: Marijuana Substance Use Type Other:: last spoke to marijuana 3 days ago Have you been hit, kicked, punched, or otherwise hurt by someone within the past year? If so, by whom?: No Are you DNR?: No Advance Directives: No Advance Directives Information Provided: Yes service: No Current occupational status: disabled Cognitive needs: No Hearing needs: No Vision needs: No Meds Allergies Allergy/AdvReac Type Severity Reaction Status Date / Time No Known Allergies (No Known Allergy Verified 11/10/24 14:27 Allergies*) Home Medications ?Medication ?Instructions ?Recorded ?Confirmed ?Last Taken ?Type buspirone 10 mg tablet 10 mg PO TID PRN Anxiety 09/16/24 11/22/24 11/22/24 History diclofenac sodium 3 % topical gel 1 appl topical BID PRN Pain 09/16/24 11/22/24 11/18/24 History omeprazole 20 mg capsule,delayed 20 mg PO BID@0630,1630 09/16/24 11/22/24 11/22/24 History release Exam Height,Weight and Vital Signs: Height 5 ft 5 in Weight 70.76 kg Pertinent Lab Results Pertinent Lab Results: Laboratory Tests 11/10/24 14:45 WBC 10.3 Hgb 12.8 Hct 36.3 L Plt Count 298 Sodium 140 Potassium 3.3 D Chloride 102 Carbon Dioxide 26 Anion Gap 15 BUN 9 Creatinine 0.83 Total Bilirubin 0.8 AST 34 H ALT 25 Alkaline Phosphatase 68 Laboratory Tests 11/10/24 14:45 Magnesium 1.8 Narrative Narrative: EKG 11/2024 Vent. Rate : 81 BPM Atrial Rate : 81 BPM P-R Int : 130 ms QRS Dur : 74 ms QT Int : 404 ms P-R-T Axes : 69 35 54 degrees QTcB Int : 469 ms Normal sinus rhythm Normal ECG When compared with ECG of 12-Earle-2025 10:05, Criteria for Septal infarct are no longer Present Nonspecific T wave abnormality no longer evident in Lateral leads ECHO 2023 Conclusions: - Essentially normal study CT angio chest PE protocol 11/2024 IMPRESSION: No evidence of PE. No evidence of aortic aneurysm or dissection. There are calcified nodules in the subcarinal space. There are several 2 mm small nodules in both lungs and a calcified nodule in the right lower lobe. Assessment and Plan Assessment Anesthesia Assessment: Chart Reviewed Documented by User: Cain Hartman MD 11/22/24 14:17 [facility] Past Medical History Medical History (Updated 11/18/24 @ 14:05 by Siena Hinojosa RN) Trigeminal neuralgia of left side of face Depression Cervical spinal stenosis Tobacco use disorder Osteoarthritis Alcohol use disorder GERD (gastroesophageal reflux disease) High blood pressure High blood cholesterol Family History Family History Mother Colon cancer S/P triple vessel bypass Father Prostate cancer Other Mental health disorder Surgical History Surgical History (Updated 11/18/24 @ 14:03 by Siena Hinojosa RN) History of carpal tunnel release Social History Social History Household Members: Spouse Housing: Other Alcohol intake: current Alcohol intake frequency: does not drink Alcohol type: hard liquor Comment: 1-2 drinks per day. Varies from hard liquor + beer. Patient Tobacco Use Status: Current everyday Tobacco user Tobacco use type: Cigarette Cigarettes Per Day: 7 Years Smoked: 52 e-Cigarette/Vaping Use: Currently Using Use of substances other than those prescribed or required for medical reasons: No Substance Use Type: Marijuana Substance Use Type Other:: last spoke to marijuana 3 days ago Have you been hit, kicked, punched, or otherwise hurt by someone within the past year? If so, by whom?: No Are you DNR?: No Advance Directives: No Advance Directives Information Provided: Yes service: No Current occupational status: disabled Cognitive needs: No Hearing needs: No Vision needs: No Meds Allergies Allergy/AdvReac Type Severity Reaction Status Date / Time No Known Allergies (No Known Allergy Verified 11/10/24 14:27 Allergies*) Home Medications ?Medication ?Instructions ?Recorded ?Confirmed ?Last Taken ?Type buspirone 10 mg tablet 10 mg PO TID PRN Anxiety 09/16/24 11/22/24 11/22/24 History diclofenac sodium 3 % topical gel 1 appl topical BID PRN Pain 09/16/24 11/22/24 11/18/24 History omeprazole 20 mg capsule,delayed 20 mg PO BID@0630,1630 09/16/24 11/22/24 11/22/24 History release Exam Airway Mallampati Class: III TM Dist: <=3cm Neck ROM: Full Loose/Missing/Broken Teeth: No Heart: RRR Lungs: CTA Assessment and Plan Final Anesthetic Review ASA Class: III Final Preanesthetic Review: No Changes in Pt Med Stat, Meds/Allgs Chart Reviewed, Consent Obtained/Reviewed and Anes Risks/Benef Reviewed Patient Risk: Low Procedure Risk: Low Anesthetic Plan Anesthetic Plan: MAC: Disposition: Standard PACU
[2024-11-22 12:28] VITALS: BP 127/70; PULSE 72; RESP 20; TEMP 36.4; O2SAT 98; BMI 24.6
[2024-11-22] MEDS: Lactated Ringers 1,000 ML 100 ML IVCONT (12:57)
--- NOTE | 2024-11-22 13:02 | MHC.SHP ---
Pre-Procedural Eval Section A - 24 Hr Update-Section A only Date of Service: 11/22/24 The patient is an INPATIENT: No The patient has been examined within 24 hours of the surgical procedure. The History & Physical has been completed within 30 days and I have reviewed it.: No Section B - Complete if H&P > 30 days Chief Complaint: Colon cancer screening, GERD Relevant Family History (Specify if Yes): Yes Relevant Social History: Tobacco Use Present Medications: see Short Stay Collaborative assessment Medical History: Significant History (GERD (gastroesophageal reflux disease) High blood pressure High blood cholesterol) History of Previous Operations: No relevant previous surgery Allergies: Allergies Allergy/AdvReac Type Severity Reaction Status Date / Time No Known Allergies (No Known Allergy Verified 11/10/24 14:27 Allergies*) Review of Systems Sugical H&P ROS: Negative: Constitution, Cardiovascular, Respiratory and Gastrointestinal Exam Surgical H&P Exam: Normal: Heart, Normal: Lungs, Normal: Extremities and Normal: Abdomen Plan Diagnosis/Plan: Unchanged I have reviewed the history and physical and performed a pertinent physical examination on my patient. No changes have occurred unless specified. Time Spent With Patient Time: Total time managing care of this patient today ____ minutes.
[2024-11-22 15:26] VITALS: BP 114/77; PULSE 106; RESP 18; TEMP 36.3; O2SAT 94
--- NOTE | 2024-11-22 15:31 | HO.OPN-COLON ---
Colonoscopy Operative Note Operative Note Date of Service: 11/22/24 Narrative: FLEXIBLE TRANSORAL UPPER GASTROINTESTINAL ENDOSCOPY WITH BIOPSIES AND COLONOSCOPY TILL CECUM Pre-op diagnosis: Colon cancer screening, family history of colon cancer (Mom diagnosed in her 50's and in her 60's), GERD, abdominal pain Post-op diagnosis: Small hiatal hernia, Gastritis, Diverticulosis, hemorrhoids Endoscopist:Camilla Su MD Anesthesia:?MAC UPPER ENDOSCOPY Consent: Indications for the procedure and potential complications of bleeding, perforation, reaction to medications and missed diagnosis were discussed with the patient and informed consent was obtained. Instrument: Olympus GIF H 190 mid size upper endoscope Monitoring: Vital signs and clinical assessment, continuous EKG monitoring, Pulse oximetry, Carbon Dioxide monitoring and blood pressure monitoring were done throughout the procedure. Procedure: The patient was placed in the left lateral decubitis position and pre-procedure medications were administered and a bite block was placed. The endoscope was inserted into the mouth and advanced under direct vision to the third part of duodenum. A careful inspection was made as the upper endoscope was withdrawn including a retroflexed examination of the proximal stomach; Findings and interventions are described below. Findings: Larynx: Normal Esophagus: GE junction at 34 cms, small hiatal hernia 34 to 36 cms. No esophagitis or Melgar's. Stomach: Moderate diffuse gastric erythema - biopsies were obtained from the gastric body and antrum. Grade 2 flap valve on retroflexed examination of the cardia. Duodenum: Normal bulb and descending duodenum Biopsies were obtained from descending duodenum to check for celiac sprue Intervention: Biopsies as noted above COLONOSCOPY PROCEDURE NOTE Instrument: Olympus PCF H 190 L variable stiffness pediatric colonoscope Monitoring: Vital signs and clinical assessment, intermittent blood pressure monitoring, continuous EKG monitoring, Pulse oximetry and Carbon Dioxide monitoring were done throughout the procedure. Please see anesthesia flowsheet. Colon withdrawl time was 16 minutes. Procedure: The patient was placed in the left lateral decubitis position and pre-procedure medications were administered. After a digital rectal examination of the ano-rectum, the video colonoscope was inserted into the rectum and advanced through the colon to the cecum. The colonoscope was slowly withdrawn in a retrograde panoramic fashion and the colon mucosa was carefully examined including a retroflexed view of the rectum. Findings and interventions are described below. Procedure Difficulty: without difficulty Findings: Terminal Ileum: Not evaluated Cecum: Normal Ascending Colon: Moderate diverticulosis throughout the entire colon Transverse Colon: Moderate diverticulosis throughout the entire colon Descending Colon: Moderate diverticulosis throughout the entire colon Sigmoid Colon: Severe diverticulosis with luminal narrowing Rectum: Normal Ano-rectum: Moderate internal hemorrhoids Colon preparation: Good after copious irrigation. [place] Bowel Preparation Scale Right colon; 2 Transverse colon: 2 Left colon; 2 (0 = Unprepared colon segment with mucosa not seen due to solid stool that cannot be cleared. 1 = Portion of mucosa of the colon segment seen, but other areas of the colon segment not well seen due to staining, residual stool and/or opaque liquid. 2 = Minor amount of residual staining, small fragments of stool and/or opaque liquid, but mucosa of colon segment seen well. 3 = Entire mucosa of colon segment seen well with no residual staining, small fragments of stool or opaque liquid) Impression and Post Procedure Diagnosis: Endoscopy Findings: ESOPHAGUS: Small hiatal hernia 34 to 36 cms. No esophagitis or Melgar's. STOMACH: Diffuse gastritis DUODENUM: Normal - biopsied to check for celiac sprue Colonoscopy Findings: No polyps were detected Moderate to severe diverticulosis seen in the entire colon Moderate hemorrhoids on retroflexed exam. Plan: Pt has a FU appointment on 12/15/24 with Haley Delgado NP Repeat Colonoscopy in 5 years due to positive family history A summary of above findings and relevant handouts were given to the patient. BIOPSIES SHOWED: A. Small bowel, biopsy: Small bowel mucosa with preserved villi and no specific change; no evidence of celiac disease. B. Gastric antrum, biopsy: Gastric antral mucosa with mild reactive changes and minimal chronic inactive gastritis; negative for H. pylori, intestinal metaplasia and dysplasia. C. Gastric body, biopsy: Gastric body mucosa with minimal chronic inactive gastritis; negative for H. pylori, intestinal metaplasia and dysplasia Letter sent with biopsy results. Patient placed on the endoscopy recall list for repeat colonoscopy in 5 years patient.
[2024-11-22 15:41] VITALS: BP 105/68; PULSE 79; RESP 18; O2SAT 93
[2024-11-22 15:56] VITALS: BP 108/59; PULSE 78; RESP 20; TEMP 36.1; O2SAT 95
== END 2024-11-22 16:15 | disposition home or self-care (01) ==
PROVIDERS: PCP Internal Medicine; Visit Provider Internal Medicine Gastroenterology
PROC: (CPT 43239; principal; 2024-11-22 13:50)
DX: Z12.11 Encounter for screening for malignant neoplasm of colon (principal); K57.30 Diverticulosis of large intestine without perforation or abscess without bleeding; K64.8 Other hemorrhoids; K56.699 Other intestinal obstruction unspecified as to partial versus complete obstruction; Z80.0 Family history of malignant neoplasm of digestive organs; K21.9 Gastro-esophageal reflux disease without esophagitis; K44.9 Diaphragmatic hernia without obstruction or gangrene; I10 Essential (primary) hypertension; E78.5 Hyperlipidemia, unspecified; E55.9 Vitamin D deficiency, unspecified; E03.8 Other specified hypothyroidism; F10.90 Alcohol use, unspecified, uncomplicated; F17.210 Nicotine dependence, cigarettes, uncomplicated; F12.90 Cannabis use, unspecified, uncomplicated; K29.60 Other gastritis without bleeding; Z79.02 Long term (current) use of antithrombotics/antiplatelets; Z79.899 Other long term (current) drug therapy
CPT/HCPCS: 43239; G0105; 88305; 88342; J1596; J2003; J2704

== ENCOUNTER → 2024-11-22 11:10 | Outpatient (BNV) | payer MEDICARE, MEDICAID, SELFPAY | PROVIDERS: PCP Internal Medicine; Visit Provider Internal Medicine Gastroenterology | DX: Z12.11 Encounter for screening for malignant neoplasm of colon (principal); Z80.0 Family history of malignant neoplasm of digestive organs; K57.90 Diverticulosis of intestine, part unspecified, without perforation or abscess without bleeding; K64.8 Other hemorrhoids; K21.9 Gastro-esophageal reflux disease without esophagitis; K29.70 Gastritis, unspecified, without bleeding | CPT/HCPCS: 43239; G0105 ==

== ENCOUNTER 2024-12-22 14:39 | Outpatient (REF) | payer MEDICARE, MEDICAID, SELFPAY ==
[2024-12-22 18:02] LABS: Alanine Aminotransferase 27 U/L (0-31); Albumin Level 4.3 g/dL (3.5-5.0); Alkaline Phosphatase 71 U/L (39-117); Anion Gap 14 (12-20); Aspartate Amino Transferase 44 U/L (5-31); Blood Urea Nitrogen 6 mg/dL (9-16); Calcium 9.0 mg/dL (8.4-10.2); Carbon Dioxide 28 mmol/L (22-29); Chloride 108 mmol/L (96-108); Estimated Glomerular Filt Rate > 60; Magnesium 1.5 mg/dL (1.6-2.6); Potassium 2.9 mmol/L (3.3-5.1); Sodium 147 mmol/L (135-145); Total Protein 7.2 g/dL (6.5-8.0)
== END 2024-12-22 14:40 | disposition home or self-care (01) ==
LOC: HO.HMGCLDS 14:39
PROVIDERS: PCP Internal Medicine; Visit Provider Internal Medicine
DX: I10 Essential (primary) hypertension (principal); R73.01 Impaired fasting glucose; E78.9 Disorder of lipoprotein metabolism, unspecified; E03.8 Other specified hypothyroidism; E55.9 Vitamin D deficiency, unspecified; E53.8 Deficiency of other specified B group vitamins; K21.9 Gastro-esophageal reflux disease without esophagitis; E87.6 Hypokalemia; F33.42 Major depressive disorder, recurrent, in full remission; R20.2 Paresthesia of skin; F10.20 Alcohol dependence, uncomplicated; D50.9 Iron deficiency anemia, unspecified; F17.200 Nicotine dependence, unspecified, uncomplicated; Z71.41 Alcohol abuse counseling and surveillance of alcoholic; Z71.6 Tobacco abuse counseling
CPT/HCPCS: 36415; 80053; 83735; 84443; 99212

== ENCOUNTER 2024-12-22 14:39 | Outpatient (AMB) | payer MEDICARE, MEDICAID, SELFPAY ==
--- NOTE | 2024-12-22 14:48 | A.OFFPC_ITS ---
Vital Signs 12/22/24 14:49 Height 5 ft 5 in Weight 146 lb BMI 24.3 BP 126/70 Blood Pressure Location Lt brachial Position Sitting Pulse 85 Pulse Source Pulse Oximeter Pulse Oximetry (%) 96 Intake Visit Reasons: 3 months f/up - see comments Allergies No Known Allergies (No Known Allergies*) Allergy (Verified 12/22/24 14:49) Medication List - Last Reconciled 12/22/24 by Nancy Houston MD albuterol sulfate 90 mcg/actuation 2 puffs inhalation QID PRN amlodipine 5 mg PO DAILY 90 days atorvastatin 10 mg PO DAILY 90 days buspirone 10 mg PO TID PRN diclofenac sodium 3% 1 appl topical BID PRN folic acid 1 mg PO DAILY irbesartan 75 mg PO DAILY 90 days levothyroxine 75 mcg PO DAILY@0600 magnesium oxide 400 mg PO BID omeprazole 20 mg PO BID@0630,1630 potassium chloride 20 mEq PO BID thiamine mononitrate (vit B1) 100 mg PO DAILY Tobacco use date assessed: 09/14/24 Fall risk assessment: No Falls in past year Last assessed Fall Risk: 12/22/24 Dental Screening Dental Screen Date: 09/14/24 HPI 3 months f/up - see comments HPI Details History The patient is a 64 year old female presenting with a three-month follow-up and evaluation of blood work, particularly potassium levels. Hypertension: - History of hypertension. - Currently managed with amlodipine 5 mg and irbesartan 75 mg. - Reports no dizziness or lightheadednes s. Hyperlipidemia: - History of high cholesterol. - Currently taking atorvastatin 10 mg fo r management. Anxiety: - Ongoing management with buspirone 10 m g, taken three times daily. Suboptimal Potassium Levels: - Potassium level was recorded as 3.3 on November 10, considered the lower limit of normal. - Previously instructed to stop potassiu m supplements; currently not taking supplements. - Plans for new lab tests to reassess po tassium levels. Medical History: - Hypertension - Hyperlipidemia - Anxiety Medications: - Amlodipine 5 mg for hypertension - Irbesartan 75 mg for hypertension - Atorvastatin 10 mg for hyperlipidemia - Buspirone 10 mg, three times daily, fo r anxiety - Levothyroxine 75 mg for thyroid functi on Social History: - Alcohol consumption regularly, often h as two drinks of vodka Problem List - Essential Hypertension - Hyperlipidemia - Anxiety - Suboptimal Potassium Levels - hypothyroidism - alcohol dependence Patient Instructions - Continue taking medications as prescri bed: amlodipine, irbesartan, atorvastatin, buspirone, and levothyroxine. - Magnesium and vitamin B1 have been ord ered; continue current vitamins including Vitamin D. - Blood work is necessary to check potas sium levels; visit next door for lab tests. - try to stop drinking alcohol if you ne ed any help let me know Follow-up 3 months. Review of Systems neurological: No headaches no dizziness ear nose throat: No sore throat no hearing difficulty no ear pain cardiovascular: No syncope, no chest pain, no palpitations gastrointestinal: No nausea vomiting or diarrhea endocrine: No polyuria polydipsia no heat intolerance genitourinary: No dysuria skin: No new complaints Physical Exam general: No acute distress HEENT: No acute findings neck: Supple respiratory system: Able to talk in full sentences, no audible wheeze, no stridor cardiovascular: S1-S2 RRR, no chest pains gastrointestinal: No pain, heartburn is okay extremities: No new findings, no swelling ADMINISTRATIVE DIRECTOR: Alert awake oriented x3 motor intact skin: Normal turgor [facility] Medical History Trigeminal neuralgia of left side of face Depression Cervical spinal stenosis Tobacco use disorder Osteoarthritis Alcohol use disorder GERD (gastroesophageal reflux disease) High blood pressure High blood cholesterol Surgical History History of carpal tunnel release Family History Mother Colon cancer S/P triple vessel bypass Father Prostate cancer Other Mental health disorder Social History Household Members: Spouse Housing: Other Alcohol intake: current Alcohol intake frequency: does not drink Alcohol type: hard liquor Patient Tobacco Use Status: Current everyday Tobacco user Tobacco use type: Cigarette Cigarettes Per Day: 7 Years Smoked: 52 e-Cigarette/Vaping Use: Currently Using Substance Use Type: Marijuana service: No Current occupational status: disabled Cognitive needs: No Hearing needs: No Vision needs: No Questionnaire Thrive Questionnaire Date Thrive assessed: 09/17/24 I am a: Patient What is your living situation today?: I have a steady place to live Within the past 12 months, did the food you bought not last and you didn't have the money to get more?: Never true Within the past 12 months, did you worry whether your food would run out before you got money to buy more?: Never true Do you have trouble paying for medicines?: No Do you have trouble getting transportation to medical appointments?: No Do you have trouble paying your heating and electricity bill?: No Do you have trouble taking care of your child, family member or friend?: No Do you have trouble with day-to-day activities such as bathing, preparing meals, shopping, managing finances, etc.?: No Are you currently unemployed and looking for a job?: No Are you interested in more education?: No Please select the resources that you would like help with: None THRIVE Score: 0 AUDIT C Alcohol Use Questionnaire (AUDIT-C) 1. How often do you have a drink containing alcohol?: 4 or more times a week 2. How many drinks containing alcohol do you have on a typical day when you are drinking?: 3 or 4 3. How often do you have six or more drinks on one occasion?: Less than monthly Total Score: 6 Score Reviewed/Action Taken: Yes (Counseling provided encouraged to stop drinking) RAAD-7 AMB Questionnaire RAAD-7 Date RAAD - 7 assessed: 03/02/24 Source: Developed by Drs. Damien Carias, Suyapa Gee, Reggie Jaeger and colleagues, with an educational shimon from [employer]. Physical exam (Primary Care) Vital Signs: Last Vital Signs Pulse 85 12/22/24 14:49 BP 126/70 12/22/24 14:49 Pulse Ox 96 12/22/24 14:49 BMI result Body Mass Index 24.3 Tobacco/Smoking Status: Tobacco use Status Tobacco use date assessed 09/14/24 12/22/24 14:51 Patient Tobacco Use Status Current everyday Tobacco 12/22/24 14:51 Tobacco use type Cigarette 12/22/24 14:51 e-Cigarette/Vaping Use Currently Using 12/22/24 14:51 Are you ready to quit: No Tobacco cessation counseling provided: Yes Relapse Prevention: discussed the importance of a supportive environment CPT code: Less than 3 minutes Thrive Assessment: Date of Thrive Assessment Date Thrive assessed 09/17/24 12/22/24 14:51 Coding Level of Care Code Est Pt Level 4 (90828) Complex EM visit Add On G2211 Diagnoses Hypertension, essential I10 Lipid disorder E78.9 Other specified hypothyroidism E03.8 Vitamin D deficiency E55.9 B12 deficiency E53.8 Gastroesophageal reflux disease, unspecified whether esophagitis present K21.9 Esophagitis presence: esophagitis presence not specified Hypokalemia E87.6 Recurrent major depressive disorder, in full remission F33.42 Active/Remission status: in full remission Paresthesias R20.2 Alcoholism F10.20 Microcytic anemia D50.9 Chronic GERD K21.9 Tobacco use Z72.0 Alcohol cessation counseling Z71.41 Assessment & Plan Assessment & Plan (1) Hypertension, essential: Code(s): I10 - Essential (primary) hypertension Category: Medical (2) Lipid disorder: Code(s): E78.9 - Disorder of lipoprotein metabolism, unspecified Category: Medical (3) Other specified hypothyroidism: Code(s): E03.8 - Other specified hypothyroidism Category: Medical (4) Vitamin D deficiency: Code(s): E55.9 - Vitamin D deficiency, unspecified Category: Medical (5) B12 deficiency: Code(s): E53.8 - Deficiency of other specified B group vitamins Category: Medical (6) GERD (gastroesophageal reflux disease): Code(s): K21.9 - Gastro-esophageal reflux disease without esophagitis Category: Medical Qualifiers: Esophagitis presence: esophagitis presence not specified Qualified Code(s): K21.9 - Gastro-esophageal reflux disease without esophagitis (7) Hypokalemia: Code(s): E87.6 - Hypokalemia Category: Medical (8) Depression, major, recurrent: Code(s): F33.9 - Major depressive disorder, recurrent, unspecified Category: Medical Qualifiers: Active/Remission status: in full remission Qualified Code(s): F33.42 - Major depressive disorder, recurrent, in full remission (9) Paresthesias: Code(s): R20.2 - Paresthesia of skin Category: Medical (10) Alcoholism: Comment: CONSEQUENCES OF DRINKING PROBLEMS There are a number of serious consequences of drinking alcohol excessively -------Excessive alcohol consumption is a leading preventable cause of in the [place]. --------Drinking alcohol increases the risk of traffic accidents, suicide, drowning, and other serious injuries. -------Alcohol use continues to be the leading cause of injuries treated in trauma centers and emergency departments . --------Alcohol-related liver disease may lead to end-stage liver disease (cirrhosis) and . --------Alcohol increases the risk of certain cancers of the mouth, esophagus, throat, liver, and breast. Code(s): F10.20 - Alcohol dependence, uncomplicated Category: Medical (11) Microcytic anemia: Code(s): D50.9 - Iron deficiency anemia, unspecified Category: Medical (12) Chronic GERD: Code(s): K21.9 - Gastro-esophageal reflux disease without esophagitis Category: Medical (13) Tobacco use: Code(s): Z72.0 - Tobacco use Category: Social Hx (14) Alcohol cessation counseling: Code(s): Z71.41 - Alcohol abuse counseling and surveillance of alcoholic Category: Medical Plan History The patient is a 64 year old female presenting with a three-month follow-up and evaluation of blood work, particularly potassium levels. Hypertension: - History of hypertension. - Currently managed with amlodipine 5 mg and irbesartan 75 mg. - Reports no dizziness or lightheadedness. Hyperlipidemia: - History of high cholesterol. - Currently taking atorvastatin 10 mg for management. Anxiety: - Ongoing management with buspirone 10 mg, taken three times daily. Suboptimal Potassium Levels: - Potassium level was recorded as 3.3 on November 10, considered the lower limit of normal. - Previously instructed to stop potassium supplements; currently not taking supplements. - Plans for new lab tests to reassess potassium levels. Medical History: - Hypertension - Hyperlipidemia - Anxiety Medications: - Amlodipine 5 mg for hypertension - Irbesartan 75 mg for hypertension - Atorvastatin 10 mg for hyperlipidemia - Buspirone 10 mg, three times daily, for anxiety - Levothyroxine 75 mg for thyroid function Social History: - Alcohol consumption regularly, often has two drinks of vodka Problem List - Essential Hypertension - Hyperlipidemia - Anxiety - Suboptimal Potassium Levels - hypothyroidism - alcohol dependence - chronic GERD Patient Instructions - continue medications as prescribed: amlodipine, irbesartan, atorvastatin, buspirone, and levothyroxine. - Magnesium and vitamin B1 have been ordered; continue current vitamins including Vitamin D. - Blood work is necessary to check potassium levels; visit next door for lab tests. - try to stop drinking alcohol if you need any help let me know Follow-up 3 months. Orders: Orders Magnesium Today E03.8 - Other specified hypothyroidism, E53.8 - Deficiency of other specified B group vitamins, E55.9 - Vitamin D deficiency, unspecified, E78.9 - Disorder of lipoprotein metabolism, unspecified, E87.6 - Hypokalemia, I10 - Essential (primary) hypertension, K21.9 - Gastro-esophageal reflux disease without esophagitis, R73.01 - Impaired fasting glucose Comprehensive Met. Panel Today E03.8 - Other specified hypothyroidism, E53.8 - Deficiency of other specified B group vitamins, E55.9 - Vitamin D deficiency, unspecified, E78.9 - Disorder of lipoprotein metabolism, unspecified, E87.6 - Hypokalemia, I10 - Essential (primary) hypertension, K21.9 - Gastro-esophageal reflux disease without esophagitis, R73.01 - Impaired fasting glucose TSH reflex Free T4 Today E03.8 - Other specified hypothyroidism, E53.8 - Deficiency of other specified B group vitamins, E55.9 - Vitamin D deficiency, unspecified, E78.9 - Disorder of lipoprotein metabolism, unspecified, E87.6 - Hypokalemia, I10 - Essential (primary) hypertension, K21.9 - Gastro-esophageal reflux disease without esophagitis, R73.01 - Impaired fasting glucose Medications: Changed From magnesium oxide 400 mg PO BID 60 tabs 0RF To magnesium oxide 400 mg PO ONCE 90 tabs 0RF From thiamine mononitrate (vit B1) 100 mg PO DAILY 30 tabs 0RF To thiamine mononitrate (vit B1) 100 mg PO DAILY 90 tabs 0RF 90 days
[2024-12-22 14:49] VITALS: BP 126/70; PULSE 85; O2SAT 96; BMI 24.3
--- OUTSIDE RECORDS SUMMARY | 2024-12-22 18:18 | XMS_ITS | Clinical Summary ---
Author Organization [facility] Address [address] [place] [address] Care Team Providers Care Quality Control Specialist Name Role Phone Nancy Houston MD Primary Care Provider [phone] Social History Tobacco Use Types Packs/Day Years [...] Tdap / Td (1 - Tdap) 1977 Colon Cancer Screening (Colonoscopy) 11/13/2003 Breast Cancer [...] age to complete this topic Care Teams Quality Control Specialist Relationship Specialty Start Date End Date Nancy Houston MD [address] [facility] [place] [id number] PCP - General Internal Medicine 10/10/20
== END 2024-12-22 15:11 | disposition home or self-care (01) ==
LOC: HO.HMCC 14:40
PROVIDERS: PCP Internal Medicine; Visit Provider Internal Medicine
DX: I10 Essential (primary) hypertension (principal); E78.9 Disorder of lipoprotein metabolism, unspecified; E03.8 Other specified hypothyroidism; F10.20 Alcohol dependence, uncomplicated; E55.9 Vitamin D deficiency, unspecified; E53.8 Deficiency of other specified B group vitamins; K21.9 Gastro-esophageal reflux disease without esophagitis; E87.6 Hypokalemia; F33.42 Major depressive disorder, recurrent, in full remission; R20.2 Paresthesia of skin; D50.9 Iron deficiency anemia, unspecified; Z72.0 Tobacco use